=== PATIENT | male | born 1950 | race Caucasian/White ===

== ENCOUNTER → 2018-01-14 14:13 | Outpatient (CLI) | payer MEDICARE, SELFPAY ==
--- NOTE | 2018-01-14 14:19 | RAD_ITS ---
STUDY: X-RAY - THORACIC SPINE REASON FOR EXAM: Male, 67 years old. Fall, pain TECHNIQUE: 3 view(s) of the thoracic spine were obtained. COMPARISON: None. FINDINGS: Normal kyphosis of the thoracic spine. There is no substantial scoliosis. There is multilevel endplate spondylosis of the thoracic vertebrae. Normal disc space heights. The soft tissue structures are unremarkable. RAD/Thoracic Spine 2 Views IMPRESSION: Mid and lower endplate spondylosis. No fracture. Electronically Signed: Abner Oakes DO at 23:49 EST , Service support ,
--- NOTE | 2018-01-14 14:19 | RAD_ITS ---
STUDY: X-RAY - CERVICAL SPINE REASON FOR EXAM: Male, 67 years old. Fall, pain TECHNIQUE: 7 view(s) of the cervical spine were obtained. COMPARISON: None FINDINGS: Normal anterior atlantoaxial articulation. Normal odontoid process. There is straightening of the normal cervical lordosis. There is multi-level endplate spondylosis. There is multi-level degenerative disc disease with multilevel disc space narrowing. There is multi-level osseous foraminal stenosis. The soft tissue structures are unremarkable. RAD/Cerv Spine 4 or 5 Views IMPRESSION: No fracture. Degenerative changes. Straightening of the normal cervical lordosis. Electronically Signed: Abner Oakes DO at 23:53 EST , Service support ,
--- NOTE | 2018-01-14 14:30 | RAD_ITS ---
STUDY: X-RAY - LUMBAR SPINE REASON FOR EXAM: Male, 67 years old. Fall, pain TECHNIQUE: 5 view(s) of the lumbar spine were obtained. COMPARISON: None FINDINGS: Normal lumbar lordosis. There is no substantial scoliosis. There is a normal alignment of the vertebrae. Normal vertebral bodies and endplates. Degenerative disc disease L4-5. No pars defect. The soft tissue structures are unremarkable. RAD/L/S Spine Min 4 Views IMPRESSION: No fracture. Normal lordosis. Degenerative disc disease L4-5. Electronically Signed: Abner Oakes DO at 23:52 EST , Service support ,
[2018-01-14 15:43] LABS: Hematocrit 36.7 % (40-54); Hemoglobin 11.8 g/dl (13.0-16.5); Mean Corp Hgb Conc 32.2 g/gl (32-36); Mean Corpuscular Hgb 29.4 pg (27.0-32.0); Mean Corpuscular Volume 91.5 fL (80-94); Mean Platelet Vol. 10.7 fl (6.2-12.0); Platelet Count 160 K/mm3 (150-450); RBC Distribution Width CV 13.6 % (11.6-14.6); RBC Distribution Width SD 45.2 fl (35.1-43.9); Red Blood Count 4.01 M/mm3 (4.6-6.2); White Blood Count 6.6 K/mm3 (4.4-11.0)
[2018-01-14 15:50] LABS: Scan Indicated on CBC? Y/N NO
[2018-01-14 16:13] LABS: Vitamin B12 550 pg/mL (211-911)
[2018-01-14 16:21] LABS: ALB/GLOB Ratio 1.1 RATIO (0.9-2.4); AST(SGOT) 49 U/L (15-37); Alanine Aminotransfer ALT/SGPT 77 U/L (16-61); Albumin, Serum 3.5 g/dL (3.2-5.0); Alkaline Phosphatase 79 U/L (45-117); Anion Gap 10 (5-15); BUN 18 mg/dL (7-18); BUN/Creat Ratio 18.1 RATIO (10-20); Calcium,Total 8.8 mg/dL (8.5-10.1); Chloride 97 mmol/L (98-107); Cholesterol 192 mg/dL (200); EST Glomerular Filtration Rate 79 mL/min (>60); Est Glom Filt Rate - Afr Amer 96 mL/min (>60); Globulin 3.2 g/dL (2.2-4.2); Glucose 362 mg/dL (74-106); High Density Lipoprotein 33 mg/dL; Potassium 4.6 mmol/L (3.5-5.1); Protein, Total 6.7 g/dL (6.4-8.2); Sodium Level 135 mmol/L (136-145); Thyroid Stim Hormone (TSH) 1.38 uIU/mL (0.358-3.74); Triglycerides 337 mg/dL; Very Low Density Lipoprotein 67 mg/dL (5-40)
== END ==
PROVIDERS: Family Provider Family Medicine; PCP Family Medicine; Visit Provider Family Medicine
DX: M54.9 Dorsalgia, unspecified (principal); F32.9 Major depressive disorder, single episode, unspecified; E11.8 Type 2 diabetes mellitus with unspecified complications; E53.8 Deficiency of other specified B group vitamins
CPT/HCPCS: 36415; 72050; 72070; 72110; 80053; 80061; 82607; 84443; 85027

== ENCOUNTER 2018-02-26 15:30 | Outpatient (RCR) | payer MEDICARE, SELFPAY ==
--- NOTE | 2018-02-19 11:11 | HP.PTEVAL_ITS ---
Patient's Visit Information PATIT DIAZ is a 67 year old M referred to Physical Therapy by Pravin LARRY with a diagnosis of GAIT INSTABILITY. Date of Evaluation: 02/19/18 Physical Therapist: Kizzy Cox - Visit Plan Frequency: 2-3x /Week Duration: 4-6 Weeks Plan: *PATIENT IS A HIGH FALL RISK - FALLING DAILY* GAIT/BALANCE TRAINING STARTING WITH WALKER/PARALLEL BARS. POSTURE CORRECTION/STRENGTHENING, INSTRUCTION IN APPROPRIATE BODY MECHANICS AND ACTIVITY MODIFICATIONS. DLS STARTING WITH A NEUTRAL SPINE PROGRESSING ROM TOLERATED. JACLYN LE ROM, STRETCHING AND STRENGTHENING. HEP INSTRUCTION WITH PIN PUSHER INSTRUCTIONS. - Subjective Subjective: Diagnosis: GAIT INSTABILITY. Work/Leisure: RETIRED AND DISABLED. Disability: YES. Present symptoms: PATIENT REPORTS HE IS FALLINIG 2-3 TIMES A DAY. NECK PAIN, BACK PAIN, DIZZINESS, LEG WEAKNESS, JACLYN LE NUMBNESS AND TINGLIN. Present since: CHRONIC FOR YEARS. STATES FALLS ARE CONTINUING TO GET WORSE. Pain Scale: WHOLE SPINE: WORST 9/10, LEAST 7/10. Currently: 9/10. Commenced as a result of: NO APPARENT REASON OTHER THAN ORIGINALLY FROM A BLAST IN [place]. Symptoms at onset: LOW BACK PAIN. Worse: EVERYTHING. Better: RECLINEER. Disturbed sleep: YES. Previous history/Previous treatment : INJECTIONS, PT, CHIRO. NO SURGERY. Coughing/sneezing/straining: POSITIVE. Gait: USES A WALKER AROUND THE HOUSE PER BUT PATIENT REPORTS HE USES HIS CANE AND DOESN'T LIKE THE WALKER. Difficulty initiating urinatin: NO. Imaging: X-RAY RESULTS 01/14/18: CERVICAL - Normal anterior atlantoaxial articulation. Normal odontoid process. There is straightening of the normal cervical lordosis. There is. multi-level endplate spondylosis. There is multi -level degenerative disc. disease with multilevel disc space narrowing. There is multi-level osseous. foraminal stenosis. The soft tissue structures are unremarkable. THORACIC - Mid and lower endplate spondylosis. No fracture. LUMBAR - Normal lumbar lordosis. There is no substantial scoliosis. There is a normal alignment of the vertebrae. Normal vertebral bodies and endplates. Degenerative disc disease L4-5. No. pars defect. . PMH: Significant for dizziness, high blood pressure, insulin-dependent diabetes mellitus,. arthritis, posttraumatic stress disorder and a right rotator cuff repair. He reports that. he falls a lot, secondary to spine pain and right lower extremity giving out. He is falling daily. Big fall about a month ago and seen by Dr. Espitia - no fx's per report. He denies having been in any accidents or any unexplained weight. loss. OTHER: PATIENTS IS WITH HIM THROUGHOUT THE EVALUATION AND SHE REPORTS SHE DOES NOT WORK OUTSIDE THE HOME. PATIENTS REPORTS DR. ESPITIA TOLD HIM HE NEEDS THE WALKER. - Objective Sitting Posture: POOR. PATIENT IS NOT ABLE TO GET COMFORTABLE IN SITTING AND MOVES AROUND A LOT. Standing Posture: POOR. INCREASED TRUNK FLEXION AND DEPENDENT ON CANE FOR BALANCE. Lordosis: REDUCED. Lateral shift: NO. Relevant shift: N/A. Active Correction of posture: WORSE BUT SOME RELEIF WITH PASSIVE LUMBAR SUPPORT IN SITTING. Other Observations: INDEP GAIT INTO PT WITH A QUAD CANE BUT PATIENT BARELY MADE IT BACK TO A TREATMENT ROOM (ABOUT 300 FEET). HE WAS INSISTING ON USING A CANE AND NOT A WALKER. HE WALKS WITH A VERY SLOW ANTALGIC GAIT PATTERN WITH DECREASED JACLYN STRIDE LENGTH. HE IS UNABLE TO SLS ON EITHER LEG WITHOUT UE ASSIST. HIS STANDING BALANCE IS FAIR AND HIS DYNAMIC BALANCE IS POOR. HIS IS WITH HIM. Motor/ROM deficit: JACLYN UE AND LE WEAKNESS. RIGHT UE ROM IS LIMITED TO ABOUT 90 DEG ELEVATION AND LEFT UE ELEVATION IS ABOUT 25% LIMITED. HIS RIGHT UE AND LE ARE MORE PAINFUL, LIMITED AND WEAK COMPARED TO HIS LEFT UE AND LE. LEFT UE AND LE STRENGTH WITH MMT'ING IS GROSSLY 4/5. RIGHT UE GROSSLY: SHOULDER 2+/5, ELBOW 4/5, WRIST/HAND 4/5. RIGHT LE: HIP 3+/5, KNEE 4-/5 AND ANKLE 3+/5. ROM AND MMT'ING IS DIFFICULT DUE TO PATIENTS REPORTS OF PAIN AND PATIENTS PAIN BEHAVIOR. Sensory deficit: DECREASED RIGHT LE LIGHT TOUCH SENSATION COMPARED TO LEFT. DECREASED LIGHT TOUCH JACLYN FEET RIGHT > LEFT. Dural Signs: POSITIVE JACLYN LE'S. Lumbar mvmt loss : flex - MOD. ext - SYD. R SG - SYD. L SG - SYD. CERVICAL MVMT LOSS: PATIENT HOLDS HIS HEAD IN SLIGHT FLEXION MOST OF THE SESSION BUT HE IS ABLE TO LEFT HIS HEAD UP. EXT AND RETRACTION HAVE MAJOR MVMT LOSS. JACLYN SB AND ROT HAVE MODERATE MVMT LOSS. PATIENT WITH C/O INCREASED PAIN WITH ALL MVMT TESTING. Core strength: POOR. OTHER: PATIENT IS ABLE TO FOLLOW ALL COMMANDS WELL. PATIENT WAS TAKEN BACK UP FRONT TO SCHEDULE IN A WHEEL CHAIR DUE TO THE LONG DISTANCE AND THE TIME NEEDED TO SCHEDULE WHICH WOULD INVOLVE STANDING. PATIENT IS UNSAFE WITH CANE. PATIENT DOES NOT LIKE OR WANT TO USE HIS FWW AT HOME. DISCUSSED POSSIBLE BENEFITS OF ROLLATOR AND PATIENT WILL CONSIDER. - Goals Goal 1:: INDEP AND SAFE GAIT ON ALL SURFACES WITH LEAST ASSISTIVE DEVICE. Goal Time Frame: 4-6 Weeks Goal 2:: IMPROVE BENDING, SITTING, STANDING, WALKING, REACHING, LIFTING, ADL AND SLEEP FUNCTION Goal Time Frame: 4-6 Weeks Goal 3:: INDEP HEP Goal Time Frame: 4-6 Weeks - Rehabilitation Potential Rehabilitation Potential: Fair - Anticipated Interventions Patient/Client Instruction: Educate patient on: Condition, Plan of Care, Risk Factors, Benefits of Fitness Program For the Purpose of:: To improve self management Therapeutic Exercise to Include: Strength training, Endurance training, Balance training, Body mechanics, Postural training, Flexibilty training, Gait and locomotor training, Active ROM, Dynamic Lumbar Stabilization For the Purpose of:: To decrease pain, To increase ROM, To improve muscle performance and motor function, To improve ability to perform ADL's, To increase tolerance to activity/condition/position, To improve ability of physical actions for home/community/work/leisure, To improve gait and locomotor functions, To improve endurance, To improve balance, To improve safety with gait , To improve safety, To facilitate caregiver knowledge, To improve tolerance to ADL's Manual Therapy Techniques to Include: Soft tissue mobilization For the Purpose of:: To decrease pain, To increase ROM, To improve nutrient delivery to tissue Cryotherapy (ice pack, ice massage): Yes Thermo therapy (hot pack): Yes Ultrasound (thermal/non thermal): Yes For the Purpose of:: To decrease pain, To decrease swelling/inflammation, To increase ROM Thank you for the opportunity to evaluate your patient. For Medicare and Medicare HMO plans, please review the plan of care and approve it. It will need to be FAXED BACK to us at [phone] for Medicare purposes. Please let me know if there are questions or concerns regarding this plan of care. Physician Signature: Date:
--- NOTE | 2018-06-23 13:04 | HP.PTDCNRP_ITS ---
HP - Discharge Summary (1) - Patient Information PATTI DIAZ was seen in my office for initial evaluation on 02/19/18. The following Plan of Care was established for this patient: Initial Frequency: 2-3x /Week Initial Duration: 4-6 Weeks - Anticipated Interventions Patient/Client Instruction: Educate patient on: Condition, Plan of Care, Risk Factors, Benefits of Fitness Program For the Purpose of:: To improve self management Therapeutic Exercise to Include: Strength training, Endurance training, Balance training, Body mechanics, Postural training, Flexibilty training, Gait and locomotor training, Active ROM, Dynamic Lumbar Stabilization For the Purpose of:: To decrease pain, To increase ROM, To improve muscle performance and motor function, To improve ability to perform ADL's, To increase tolerance to activity/condition/position, To improve ability of physical actions for home/community/work/leisure, To improve gait and locomotor functions, To improve endurance, To improve balance, To improve safety with gait , To improve safety, To facilitate caregiver knowledge, To improve tolerance to ADL's Manual Therapy Techniques to Include: Soft tissue mobilization For the Purpose of:: To decrease pain, To increase ROM, To improve nutrient delivery to tissue Cryotherapy (ice pack, ice massage): Yes Thermo therapy (hot pack): Yes Ultrasound (thermal/non thermal): Yes For the Purpose of:: To decrease pain, To decrease swelling/inflammation, To increase ROM This patient was last seen in our office 02/26/18. Pertinent comments regarding their Physical therapy will appear below: This patient has not returned to Physical Therapy and is appropriate to return to MD for further follow-up as needed. At this point I will be discontinuing this patient from physical therapy. I would be happy to see this patient again in the future if found appropriate by the physician. Thank you! Kizzy Cox
== END 2018-02-26 19:00 | disposition home or self-care (01) ==
LOC: PT 15:30
PROVIDERS: Family Provider Family Medicine; PCP Family Medicine; Visit Provider Family Medicine
DX: R26.81 Unsteadiness on feet (principal)
CPT/HCPCS: 97110; 97162; 97530

== ENCOUNTER → 2018-03-12 14:55 | Outpatient (CLI) | payer MEDICARE, SELFPAY ==
[2018-03-12 18:08] LABS: Magnesium 1.7 mg/dL (1.6-2.6)
[2018-03-13 09:53] LABS: Vitamin D,25 Hydroxy 18.2 ng/mL (29.95-100.01)
== END ==
PROVIDERS: Family Provider Family Medicine; PCP Family Medicine; Visit Provider Family Medicine
DX: E55.9 Vitamin D deficiency, unspecified (principal)
CPT/HCPCS: 36415; 82306; 83735

== ENCOUNTER → 2019-01-23 11:07 | Outpatient (CLI) | payer MEDICARE, SELFPAY ==
[2018-07-02 11:02] VITALS: BMI 38.7
[2019-01-23 15:42] LABS: Hematocrit 36.1 % (40-54); Hemoglobin 11.5 g/dl (13.0-16.5); Mean Corp Hgb Conc 31.9 g/gl (32-36); Mean Corpuscular Hgb 29.7 pg (27.0-32.0); Mean Corpuscular Volume 93.3 fL (80-94); Mean Platelet Vol. 11.4 fl (6.2-12.0); Platelet Count 179 K/mm3 (150-450); RBC Distribution Width CV 14.6 % (11.6-14.6); RBC Distribution Width SD 49.8 fl (35.1-43.9); Red Blood Count 3.87 M/mm3 (4.6-6.2); White Blood Count 8.6 K/mm3 (4.4-11.0)
[2019-01-23 15:44] LABS: Scan Indicated on CBC? Y/N NO
[2019-01-23 16:12] LABS: ALB/GLOB Ratio 1.3 RATIO (0.9-2.4); AST(SGOT) 62 U/L (15-37); Alanine Aminotransfer ALT/SGPT 88 U/L (16-61); Albumin, Serum 3.6 g/dL (3.2-5.0); Alkaline Phosphatase 91 U/L (45-117); BUN 23 mg/dL (7-18); BUN/Creat Ratio 25.1 RATIO (10-20); Calcium,Total 8.6 mg/dL (8.5-10.1); Chloride 104 mmol/L (98-107); Cholesterol 186 mg/dL (200); Creatinine, Serum 0.92 mg/dL (0.70-1.30); EST Glomerular Filtration Rate 87 mL/min (>60); Est Glom Filt Rate - Afr Amer 105 mL/min (>60); Globulin 2.8 g/dL (2.2-4.2); Glucose 136 mg/dL (74-106); Potassium 4.7 mmol/L (3.5-5.1); Protein, Total 6.4 g/dL (6.4-8.2); Sodium Level 140 mmol/L (136-145); Triglycerides 220 mg/dL
[2019-01-23 16:13] LABS: Anion Gap 11 (5-15); High Density Lipoprotein 37 mg/dL; Thyroid Stim Hormone (TSH) 1.17 uIU/mL (0.358-3.74); Very Low Density Lipoprotein 44 mg/dL (5-40)
[2019-01-23 16:41] LABS: BNP,B-Type NATRIURETIC PEPTIDE 23.5 pg/mL (0-100)
== END ==
PROVIDERS: Family Provider Family Medicine; PCP Family Medicine; Referring Provider Family Medicine; Visit Provider Family Medicine
DX: R60.0 Localized edema (principal)
CPT/HCPCS: 36415; 80053; 80061; 83880; 84443; 85027

== ENCOUNTER → 2019-02-24 | Outpatient (CLI) | payer MEDICARE, SELFPAY ==
[2018-07-02 11:02] VITALS: BMI 38.7
--- NOTE | 2019-02-24 12:32 | RAD_ITS ---
STUDY: X-RAY CHEST REASON FOR EXAM: Male, 68 years old. Cough. TECHNIQUE: Frontal and lateral views of the chest. COMPARISON: 03/06/2017. FINDINGS: The lungs are clear and expanded. There is no demonstrated pleural abnormality. Normal size heart. Normal mediastinum and mark. Normal visualized pulmonary arteries. Normal visualized aortic arch and descending thoracic aorta. There are diffuse degenerative changes of the visualized thoracic spine. Normal visualized ribs, clavicles, and shoulders. There is no demonstrated abnormality of the visualized soft tissue structures of the upper abdomen. RAD/Chest PA and Lateral IMPRESSION: No acute chest disease. Electronically Signed: James Matthews MD at 13:59 EDT , Service support ,
== END | disposition home or self-care (01) ==
LOC: MTRAD 12:31
PROVIDERS: Family Provider Family Medicine; PCP Family Medicine; Referring Provider Family Medicine; Visit Provider Family Medicine
DX: R05 Cough (principal)
CPT/HCPCS: 71046

== ENCOUNTER → 2019-05-12 | Outpatient (CLI) | payer MEDICARE, SELFPAY ==
[2018-07-02 11:02] VITALS: BMI 38.7
== END | disposition home or self-care (01) ==
PROVIDERS: Family Provider Family Medicine; PCP Family Medicine; Referring Provider Nurse Practitioner Family; Visit Provider Nurse Practitioner Family
DX: L03.119 Cellulitis of unspecified part of limb (principal)
CPT/HCPCS: 87070; 87077; 87186; 87205

== ENCOUNTER 2019-05-16 09:15 | Outpatient (RCR) | payer MEDICARE, SELFPAY ==
[2019-05-13 09:05] VITALS: BP 129/76; PULSE 87; RESP 20; TEMP 36.2; BMI 38.4
--- NOTE | 2019-05-13 10:08 | HP.PCM_ITS ---
(1) Chronic venous insufficiency Status: Chronic Current Visit: Yes Code(s): I87.2 - Venous insufficiency (chronic) (peripheral) (2) Venous hypertension, chronic, with ulcer and inflammation Status: Chronic Current Visit: Yes Qualifiers: Laterality: right Qualified Code(s): I87.331 - Chronic venous hypertension (idiopathic) with ulcer and inflammation of right lower extremity; L97.919 - Non-pressure chronic ulcer of unspecified part of right lower leg with unspecified severity Code(s): I87.339 - Chronic venous hypertension (idiopathic) with ulcer and inflammation of unspecified lower extremity; L97.909 - Non-pressure chronic ulcer of unspecified part of unspecified lower leg with unspecified severity (3) Leg swelling Status: Chronic Current Visit: Yes Code(s): M79.89 - Other specified soft tissue disorders (4) Leg edema Status: Chronic Current Visit: Yes Code(s): R60.0 - Localized edema (5) Venous stasis dermatitis Status: Chronic Current Visit: Yes Qualifiers: Laterality: bilateral Qualified Code(s): I87.2 - Venous insufficiency (chronic) (peripheral) Code(s): I87.2 - Venous insufficiency (chronic) (peripheral) (6) Venous ulcer of right leg Status: Chronic Current Visit: Yes Code(s): I83.019 - Varicose veins of right lower extremity with ulcer of unspecified site; L97.919 - Non-pressure chronic ulcer of unspecified part of right lower leg with unspecified severity (7) Obesity (BMI 30-39.9) Status: Chronic Current Visit: Yes Code(s): E66.9 - Obesity, unspecified (8) Hypertension Status: Chronic Current Visit: No Code(s): I10 - Essential (primary) hypertension (9) Diabetes mellitus Status: Chronic Current Visit: No Code(s): E11.9 - Type 2 diabetes mellitus without complications (10) Hyperlipidemia Status: Chronic Current Visit: No Code(s): E78.5 - Hyperlipidemia, unspecified History of Present Illness Date of Service: 05/13/19 Chief Complaint: Chronic venous insufficiency and venous stasis ulceration of the right distal lower extremity History of Wound: This is a 68-year-old male who presents accompanied by his grandchildren. He states that he has had an ulceration on the right medial calf for approximately 6 months. This was predated by erythema and skin changes which are consistent with venous stasis dermatitis. The patient has been treated by means of Neosporin, applied topically. He was evaluated by his primary care physician yesterday, and started on doxycycline 100 mg p.o. twice daily for a total of 10 days. He denies a history of thrombophlebitis. He confirms that he suffers from swelling in both lower extremities. He is not very active, and does not ambulate a great deal. He sleeps most nights in a chair. Past Medical History Past Medical History: Chronic Problems (Last Updated 07/02/18 @ 11:27 by Winter Cardoso) Chronic venous insufficiency (Chronic) Venous hypertension, chronic, with ulcer and inflammation (Chronic) Leg swelling (Chronic) Leg edema (Chronic) Venous stasis dermatitis (Chronic) Venous ulcer of right leg (Chronic) Obesity (BMI 30-39.9) (Chronic) Hypertension (Chronic) Diabetes mellitus (Chronic) Hyperlipidemia (Chronic) Uncontrolled diabetes mellitus type 2 without complications (Chronic) On lilia inhibitor On daily asa On statin BP 133/76 A1c checked on PCP office, no results available. No records avialable. Past Medical History: Patient has a history of hypertension, diabetes mellitus, and hyperlipidemia. His history is negative for myocardial infarction, congestive heart failure, cerebrovascular accident, cancer, pulmonary disease, renal disease, and thyroid disease. Surgical History: no surgical history Allergies/Adverse Reactions: Allergies No Known Allergies Allergy (Unverified 07/02/18 10:37) Home Medications: Ambulatory Orders Medication Instructions Recorded amitriptyline 25 mg tablet 25 mg PO QDAY 07/02/18 ascorbic acid (vitamin C) 250 mg 250 mg PO TID tab 07/02/18 tablet atorvastatin 80 mg tablet 80 mg PO QDAY 07/02/18 bupropion HCl SR 150 mg tablet,12 150 mg PO QDAY tab 07/02/18 hr sustained-release buspirone 5 mg tablet 5 mg PO TID 07/02/18 ferrous sulfate 325 mg (65 mg 325 mg PO TID tab 07/02/18 iron) tablet folic acid 1 mg tablet 1 mg PO QDAY 07/02/18 insulin aspart (U-100) 100 unit/mL 65 unit SC TID ml 07/02/18 (3 mL) subcutaneous pen insulin glargine (U-100) 100 85 unit SC BID ml 07/02/18 unit/mL (3 mL) subcutaneous pen lisinopril 20 2 tab PO QDAY tab 07/02/18 mg-hydrochlorothiazide 12.5 mg tablet metformin 500 mg tablet 1,000 mg PO BID tab 07/02/18 prazosin 5 mg capsule 5 mg PO ONCE 07/02/18 pregabalin 100 mg capsule 100 mg PO BID 07/02/18 tolterodine ER 2 mg 2 mg PO QDAY 07/02/18 capsule,extended release 24 hr triamcinolone acetonide 0.1 % 1 applic TOPICAL BID 07/02/18 topical cream Atenolol 25 mg PO 05/13/19 Carboxymethylcellulos/Glycerin 10 ml OP 05/13/19 [Refresh Repair 0.5-0.9% Drop] Cyanocobalamin (Vitamin B-12) 1,000 mcg PO 05/13/19 [Vitamin B-12] Ferrous Sulfate 05/13/19 Insulin Lispro [Humalog KwikPen] 05/13/19 Melatonin 3 mg PO 05/13/19 Omeprazole 20 mg PO 05/13/19 Pregabalin [Lyrica] 150 mg PO 05/13/19 Venlafaxine HCl [Venlafaxine HCl 150 mg PO 05/13/19 ER] - Family History Paternal Family History: Family History (Last Updated 07/02/18 @ 10:53 by Winter Cardoso) Father Heart disease Mother Heart disease Sister Cancer FH: mental illness Brother Diabetes FH: mental illness - - Patient's father in his 50s with black lung disease. He was a minor. Patient's mother in her 50s, from a cerebrovascular accident. Social History: The patient lives with his . 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 He denies use of alcohol and tobacco products. Lives: Spouse/ Significant Other Smoking Status: Former smoker Tobacco Use: Non-smoker Alcohol: None Drugs: None Review of Systems Constitutional: Denies: Chills, Fever, Weight Change Eyes: Denies: Pain, Vision Change HEENT: Denies: Difficulty Hearing, Difficulty Swallowing, Sinus Congestion Cardiovascular: Denies: Chest Pain, Palpitations Respiratory: Denies: Cough, Shortness of Breath Gastrointestinal: Denies: Diarrhea, Nausea, Vomiting Genitourinary: Denies: Dysuria, Hematuria Endocrine: Denies: Heat/ Cold Intolerance, Polydipsia, Polyuria Hematologic/ Lymphatic: Denies: Easy Bruising, Easy Bleeding - Physical Exam Vital Signs Temp Pulse Resp BP 97.2 F L 87 20 H 129/76 H 05/13/19 09:05 05/13/19 09:05 05/13/19 09:05 05/13/19 09:05 General: Alert, Oriented x3, Cooperative, No apparent distress, Well developed, Well nourished, - - The patient is morbidly obese. HEENT: Atraumatic, PERRLA, EOMI, Normocephalic Oral: Moist Mucosa Neck: Supple, No JVD, Negative Carotid Bruits, Negative Hepatojugular Reflux, No Nodes, No Nuchal Rigidity, Trachea Midline Lungs: Clear to auscultation, Normal air movement, No rhonchi, No wheeze, No rales, Diminished Cardiovascular: Normal S1, No murmurs, - - Irregular rhythm Abdomen: Soft, Non Tender, Non-Distended, Obese Extremities: No clubbing, No cyanosis, No Calf Tenderness, - - Mild lower extremity bilateral swelling and edema is noted. There is mild erythema in the gaiter areas bilaterally. A large irregular ulceration is noted on the right medial calf. Dimensions are documented elsewhere. There is a moderate amount of bioburden and nonviable tissue present. There is also evidence of healthy, pink granulation tissue. Wound Measurements and Assessment WC - Nurse 1 - General Ulcer Measurement Start: 05/13/19 08:54 Freq: Status: Active Protocol: Activity Type Activity Date Activity User E-Sign Co-Sign Detail Recorded Client Recorded Date Recorded By Document 05/13/19 09:05 [id number] 05/13/19 09:27 DL 05/13/19 09:05 Wound Center Nurse 1 [Ulcer Assessment] #1 R Med LE Cluster -Current Size (cm) - Length 11 -Current Size (cm) - Width 9 -Current Size (cm) - Depth 0.1 -Total Square Cm 99 -Photo Taken Yes -Exudate Amt Medium -Exudate Type Serosanguineous -Wound Margin Distinct, Outline Attached -Granulation Amt Medium (34-66%) -Granulation Quality [place],Red -Necrosis Amt Medium (34-66%) -Necrotic Tissue Type Adherent Slough -Structure Exposed N/A -Texture ([place]-wound Skin Appearance) Localized Edema ,Scarring -Moisture ([place]-wound Skin Appearance Dry/Scaly ) -Color ([place]-wound Skin Appearance) Erythema, Hemosiderin Staining -Temperature ([place]-wound Skin No Abnormality Appearance) (Pt Warm) -Tenderness on Palpation ([place]-wound Yes Skin Appearance) -Ulcer Cleansing Wound Cleanser -Foul Odor after Cleansing No -Anesthetic Used 4% Lidocaine Solution [Edema Assessment] -Right Calf (cm) 47.1 -Right Ankle (cm) 25.2 -Left Calf (cm) 40.3 -Left Ankle (cm) 25.8 Musculoskeletal: No Muscle Wasting Neurological: Cranial nerves II-XII grossly intact, Neuro grossly intact Psych/Mental Status: Normal Affect, Appropriate, Alert and oriented to time, place, person, mood and affect Debridement Note Laterality: Right - Medial calf Type of Debridement: Excisional debridement Anesthesia Used: 5% Lidocaine Gel Depth: Down to and including healthy tissue, in the subcutaneous layer Percentage of wound debrided: 100 Instrument Used: 5mm curette Tissue Removed: Nonviable tissue and bioburden Severity: Fat Layer Exposed Amount of bleeding with debridement: Mild Bleeding Controlled with: Compression and gauze Patient tolerated procedure well Assessment/Plan Active Problems (Last Updated 07/02/18 @ 11:27 by Winter Cardoso) Chronic venous insufficiency (Chronic) Venous hypertension, chronic, with ulcer and inflammation (Chronic) Leg swelling (Chronic) Leg edema (Chronic) Venous stasis dermatitis (Chronic) Venous ulcer of right leg (Chronic) Obesity (BMI 30-39.9) (Chronic) Assessment: This is a 68-year-old male who presents with apparent chronic venous insufficiency, venous hypertension with inflammation and ulceration, lower extremity swelling and edema, and a venous stasis ulceration on the medial aspect of his right calf. It appears as though the patient's lifestyle has resulted in the patient's presenting symptoms. He is largely inactive. He sits for long periods each day, and sleeps in a chair. He is morbidly obese. It is noted that he has recently been placed on doxycycline 100 mg p.o. twice daily for total of 10 days. He has been treating the right medial calf ulceration with Neosporin topically. PHUONG's have been obtained in the wound healing center today, with the following results: Right 0.82, left 0.86. Plan: The patient and his family have been informed of the suspected reasons for his presenting symptoms. It appears as though his lifestyle habits have greatly contributed to his presenting symptoms. Patient has been advised to sleep in a recumbent position, with his legs level with his heart, or higher. This can be accomplished either by sleeping in bed, on the sofa, or in a recliner that allows for leg elevation adequately. Additionally, leg elevation has been advised even during daytime hours. Leg elevation is to be at least a heart level, if not higher. The patient has been advised to lose weight. Activity has been encouraged. The patient has been discouraged from prolonged idle sitting and standing. Weight loss has been strongly recommended. We are to implement the use of an [place] boot applied to the right lower extremity, which will be changed twice weekly. Patient will return in 1 week for reassessment. A venous duplex examination is to be obtained. Routine laboratory studies will also be obtained, including a CBC, conference of metabolic profile, serum prealbumin, and hemoglobin A1c. Patient has been advised to optimize his diabetes control and his nutritional intake. The patient is not a smoker. Influenza vaccine was not administered today. The patient weighs 260 pounds. He stands 5 feet 9 inches tall. His BMI is 38.4, which places him in a class II obesity category. Weight loss has been strongly recommended, and collaboration with his primary care physician in this regard has been advised.
[2019-05-15 11:26] LABS: Hematocrit 32.8 % (40-54); Hemoglobin 10.4 g/dl (13.0-16.5); Mean Corp Hgb Conc 31.7 g/gl (32-36); Mean Corpuscular Hgb 28.8 pg (27.0-32.0); Mean Corpuscular Volume 90.9 fL (80-94); Mean Platelet Vol. 11.1 fl (6.2-12.0); Platelet Count 154 K/mm3 (150-450); RBC Distribution Width CV 14.5 % (11.6-14.6); RBC Distribution Width SD 46.5 fl (35.1-43.9); Red Blood Count 3.61 M/mm3 (4.6-6.2); Scan Indicated on CBC? Y/N NO; White Blood Count 6.8 K/mm3 (4.4-11.0)
[2019-05-15 11:53] LABS: Hemoglobin A1c 8.8 % (4.2-6.3)
[2019-05-15 11:55] LABS: AST(SGOT) 45 U/L (15-37); Alanine Aminotransfer ALT/SGPT 67 U/L (16-61); Alkaline Phosphatase 88 U/L (45-117); Anion Gap 8 (5-15); BUN 39 mg/dL (7-18); BUN/Creat Ratio 29.8 RATIO (10-20); Calcium,Total 8.5 mg/dL (8.5-10.1); Chloride 106 mmol/L (98-107); Creatinine, Serum 1.31 mg/dL (0.70-1.30); EST Glomerular Filtration Rate 58 mL/min (>60); Est Glom Filt Rate - Afr Amer 70 mL/min (>60); Estimated Creatinine Clearance 53.22 ml/min; Glucose 366 mg/dL (74-106); Potassium 4.8 mmol/L (3.5-5.1); Prealbumin 19.5 mg/dL (20.0-40.0); Sodium Level 139 mmol/L (136-145)
[2019-05-16 09:28] VITALS: BP 132/72; PULSE 81; RESP 16; TEMP 36.3; BMI 38.4
== END 2019-05-18 23:59 ==
LOC: WC 09:15
PROVIDERS: Family Provider Family Medicine; PCP Family Medicine; Referring Provider Surgery; Visit Provider Surgery
DX: I83.012 Varicose veins of right lower extremity with ulcer of calf (principal); I10 Essential (primary) hypertension; R60.0 Localized edema; E11.622 Type 2 diabetes mellitus with other skin ulcer; E78.5 Hyperlipidemia, unspecified; M79.89 Other specified soft tissue disorders; L97.212 Non-pressure chronic ulcer of right calf with fat layer exposed; E11.65 Type 2 diabetes mellitus with hyperglycemia; Z68.38 Body mass index [BMI] 38.0-38.9, adult; Z71.3 Dietary counseling and surveillance; Z79.899 Other long term (current) drug therapy; Z87.891 Personal history of nicotine dependence; E66.01 Morbid (severe) obesity due to excess calories
CPT/HCPCS: 11042; 11045; 29580; 36415; 80053; 83036; 84134; 85027; 99213; G0463

== ENCOUNTER 2019-06-02 12:15 | Outpatient (RCR) | payer MEDICARE, SELFPAY ==
[2019-05-19 01:10] VITALS: BP 132/72; PULSE 81; RESP 16; TEMP 36.3
--- NOTE | 2019-05-20 09:59 | VDLE_ITS ---
Reason For Study: pain and swelling, RLE ulcer RIGHT LEFT CFV is compressible, spontaneous, phasic, CFV is compressible, spontaneous, phasic, competent and demonstrates normal competent, and demonstrates normal augmentation. augmentation. FV is compressible, spontaneous, phasic, FV is compressible, spontaneous, phasic, competent and demonstrates normal competent and demonstrates normal augmentation. augmentation. POP V is compressible, spontaneous, phasic, POP V is compressible, spontaneous, phasic, competent and demonstrates normal competent and demonstrates normal augmentation. augmentation. T/P Trunk is compressible. T/P Trunk is compressible. PTV is compressible. PTV is compressible. RT PerV is compressible. LT PerV is compressible. S-F Junction is competent. S-F Junction is competent. GSV is competent above the knee, but GSV is incompetent throughout for greater incompetent below the knee for greater than .5 seconds. GSV measures .21 x .26 cm. than .5 seconds. GSV measures .24 x .27 cm. SSV is competent. SSV is competent. Procedure Exam performed in department. The exam was diagnostic. Interpretation Summary Deep veins of the lower extremities are bilaterally patent and compressible segmentally. There is no evidence of deep vein thrombosis on either side. Valvular competence appears intact within the proximal deep venous systems bilaterally. The greater saphenous veins appear bilaterally patent and compressible segmentally. Sapheno-femoral junctions are bilaterally competent . The right greater saphenous vein appears competent above the knee. The right greater saphenous vein appears incompetent below the knee. The left greater saphenous vein appears segmentally incompetent. Small saphenous veins are patent and competent bilaterally. Ordering Physician: Grupo Lara Performed By: Anthony Severino RVT
--- NOTE | 2019-05-29 13:44 | HP.PCM_ITS ---
(1) Ulcer of right lower extremity with fat layer exposed Status: Chronic Current Visit: Yes Code(s): L97.912 - Non-pressure chronic ulcer of unspecified part of right lower leg with fat layer exposed (2) Diabetic neuropathy Status: Acute Current Visit: Yes Code(s): E11.40 - Type 2 diabetes mellitus with diabetic neuropathy, unspecified (3) Chronic venous insufficiency Status: Chronic Current Visit: Yes Code(s): I87.2 - Venous insufficiency (chronic) (peripheral) (4) Venous hypertension, chronic, with ulcer and inflammation Status: Chronic Current Visit: No Qualifiers: Code(s): I87.339 - Chronic venous hypertension (idiopathic) with ulcer and inflammation of unspecified lower extremity; L97.909 - Non-pressure chronic ulcer of unspecified part of unspecified lower leg with unspecified severity (5) Venous stasis dermatitis Status: Chronic Current Visit: Yes Qualifiers: Code(s): I87.2 - Venous insufficiency (chronic) (peripheral) History of Present Illness Date of Service: 05/29/19 Chief Complaint: Chronic venous insufficiency and venous stasis ulceration of the right distal lower extremity History of Wound: Mr. Olsen is seen today as a courtesy visit with Dr. Lara. Chronic history of bilateral lower extremity edema/venous insufficiency and right lower extremity ulcer. Recently had venous studies done with some evidence of venous insufficiency on exam. ABIs done during his initial visit with no overt concerns. His main concern today is bilateral lower extremity pain which on further examination is chronic. Reports a significant history of diabetic neuropathy and it appears he has been on several medications in the past with no significant improvement. Recent labs reviewed. A1c at 8.8 and patient admits to poor diabetes control. Past Medical History Past Medical History: Chronic Problems (Last Updated 07/02/18 @ 11:27 by Winter Cardoso) Chronic venous insufficiency (Chronic) Venous hypertension, chronic, with ulcer and inflammation (Chronic) Leg swelling (Chronic) Leg edema (Chronic) Venous stasis dermatitis (Chronic) Venous ulcer of right leg (Chronic) Obesity (BMI 30-39.9) (Chronic) Hypertension (Chronic) Diabetes mellitus (Chronic) Hyperlipidemia (Chronic) Ulcer of right lower extremity with fat layer exposed (Chronic) Uncontrolled diabetes mellitus type 2 without complications (Chronic) On lilia inhibitor On daily asa On statin BP 133/76 A1c checked on PCP office, no results available. No records avialable. Surgical History: no surgical history Allergies/Adverse Reactions: Allergies No Known Allergies Allergy (Unverified 07/02/18 10:37) Home Medications: Ambulatory Orders Medication Instructions Recorded amitriptyline 25 mg tablet 25 mg PO QDAY 07/02/18 ascorbic acid (vitamin C) 250 mg 250 mg PO TID tab 07/02/18 tablet atorvastatin 80 mg tablet 80 mg PO QDAY 07/02/18 bupropion HCl SR 150 mg tablet,12 150 mg PO QDAY tab 07/02/18 hr sustained-release buspirone 5 mg tablet 5 mg PO TID 07/02/18 ferrous sulfate 325 mg (65 mg 325 mg PO TID tab 07/02/18 iron) tablet folic acid 1 mg tablet 1 mg PO QDAY 07/02/18 insulin aspart (U-100) 100 unit/mL 65 unit SC TID ml 07/02/18 (3 mL) subcutaneous pen insulin glargine (U-100) 100 85 unit SC BID ml 07/02/18 unit/mL (3 mL) subcutaneous pen lisinopril 20 2 tab PO QDAY tab 07/02/18 mg-hydrochlorothiazide 12.5 mg tablet metformin 500 mg tablet 1,000 mg PO BID tab 07/02/18 prazosin 5 mg capsule 5 mg PO ONCE 07/02/18 pregabalin 100 mg capsule 100 mg PO BID 07/02/18 tolterodine ER 2 mg 2 mg PO QDAY 07/02/18 capsule,extended release 24 hr triamcinolone acetonide 0.1 % 1 applic TOPICAL BID 07/02/18 topical cream Atenolol 25 mg PO 05/13/19 Carboxymethylcellulos/Glycerin 10 ml OP 05/13/19 [Refresh Repair 0.5-0.9% Drop] Cyanocobalamin (Vitamin B-12) 1,000 mcg PO 05/13/19 [Vitamin B-12] Ferrous Sulfate 05/13/19 Insulin Lispro [Humalog KwikPen] 05/13/19 Melatonin 3 mg PO 05/13/19 Omeprazole 20 mg PO 05/13/19 Pregabalin [Lyrica] 150 mg PO 05/13/19 Venlafaxine HCl [Venlafaxine HCl 150 mg PO 05/13/19 ER] - Family History Paternal Family History: Family History (Last Updated 07/02/18 @ 10:53 by Winter Cardoso) Father Heart disease Mother Heart disease Sister Cancer FH: mental illness Brother Diabetes FH: mental illness - - Patient's father in his 50s with black lung disease. He was a minor. Patient's mother in her 50s, from a cerebrovascular accident. Smoking Status: Former smoker Tobacco Use: Non-smoker Review of Systems Constitutional: Denies: Anorexia, Chills, Fever Eyes: Denies: Pain HEENT: Denies: Difficulty Swallowing Cardiovascular: Denies: Chest Pain Respiratory: Denies: Hemoptysis Gastrointestinal: Denies: Abdominal Pain, Hematemesis, Vomiting Genitourinary: Denies: Hematuria Skin: Denies: Jaundice - Physical Exam Vital Signs Temp Pulse Resp BP 97.3 F L 81 16 132/72 H 05/19/19 01:10 05/19/19 01:10 05/19/19 01:10 05/19/19 01:10 General: Alert, Cooperative, No apparent distress HEENT: Atraumatic, Normocephalic Oral: Moist Mucosa Neck: Supple Lungs: Normal air movement Cardiovascular: Regular rate, Regular Rhythm, Normal S1, Normal S2 Abdomen: Non Tender, Obese Extremities: No cyanosis, Edema Skin: Ulcer/ Wound Wound Measurements and Assessment WC - Nurse 2 - General Ulcer CM Notes Start: 05/29/19 10:26 Freq: Status: Active Protocol: Activity Type Activity Date Activity User E-Sign Co-Sign Detail Recorded Client Recorded Date Recorded By Document 05/29/19 10:59 MW [id number] 05/29/19 11:10 MW 05/29/19 10:59 Wound Center Nurse 2 [Procedure/Treatment] #1 R Med LE Cluster -Time 11:04 -Correct Patient Yes -Correct Side, Site, Position Yes -Correct Procedure Yes -Procedure Performed Yes -Type of Procedure Debridement -Clinical Debridement Subcutaneous -Post Debridement Size (cm) - Length 2.0 -Post Debridement Size (cm) - Width 0.5 -Post Debridement Size (cm) - Depth 0.1 -Total Square Cm 1.00 -Wound/Ulcer Outcome Not Healed -Ulcer Cleansing Rinsed/ Irrigated with Saline -Foul Odor after Cleansing No -Bioengineered Tissue No -Bleeding Controlled with Pressure -Offloading No -Treatment Response Procedure Tolerated Well [See Physician Procedure note for Specifics] Pain Scale: 0-10 Numeric [Pain] -Is Patient Pain Free? Yes Musculoskeletal: No Muscle Wasting Neurological: Cranial nerves II-XII grossly intact Psych/Mental Status: Normal Affect Debridement Note Post-Debridement Measurements/Treatment WC - Nurse 2 - General Ulcer CM Notes Start: 05/29/19 10:26 Freq: Status: Active Protocol: Activity Type Activity Date Activity User E-Sign Co-Sign Detail Recorded Client Recorded Date Recorded By Document 05/29/19 10:59 MW [id number] 05/29/19 11:10 MW 05/29/19 10:59 Wound Center Nurse 2 #1 R Med LE Cluster -Time 11:04 -Correct Patient Yes -Correct Side, Site, Position Yes -Correct Procedure Yes -Procedure Performed Yes -Type of Procedure Debridement -Clinical Debridement Subcutaneous -Post Debridement Size (cm) - Length 2.0 -Post Debridement Size (cm) - Width 0.5 -Post Debridement Size (cm) - Depth 0.1 -Total Square Cm 1.00 -Wound/Ulcer Outcome Not Healed -Ulcer Cleansing Rinsed/ Irrigated with Saline -Foul Odor after Cleansing No -Bioengineered Tissue No -Bleeding Controlled with Pressure -Offloading No -Treatment Response Procedure Tolerated Well Pain Scale: 0-10 Numeric Is Patient Pain Free? Yes Wound debrided: Right lower extremity (medial) Wound Grade/Stage: Stage 2 Type of Debridement: Excisional debridement Depth: Down to and including healthy tissue, in the subcutaneous layer Percentage of wound debrided: 100 Instrument Used: 3mm curette Tissue Removed: Slough and devitalized tissue Severity: Fat Layer Exposed Amount of bleeding with debridement: Mild Bleeding Controlled with: Pressure Patient tolerated procedure well Assessment/Plan Active Problems (Last Updated 07/02/18 @ 11:27 by Winter Cardoso) Chronic venous insufficiency (Chronic) Venous stasis dermatitis (Chronic) Ulcer of right lower extremity with fat layer exposed (Chronic) Diabetic neuropathy (Acute) Assessment: Same as above. Plan: Debridement done as documented above. Procedure was well-tolerated. Coreen valles discussion had with patient about ongoing pain, diabetic neuropathy. Poorly controlled diabetes mellitus. He has been on several medications for his neuropathic pain without any significant improvement. Optimal diabetes control very strongly recommended. For now, Promogran with Adaptic over top. 3M wraps for edema management. Change in 1 day. Strongly advised to elevate his lower extremities when sitting in bed. His questions were answered and he was advised to call with any further questions or concerns. Follow-up in 1 week. This note was generated with [employer] software. It may contain incorrect words, spelling, and punctuation that were not noted in checking the note before signing.
[2019-06-02 13:28] VITALS: BP 152/78; PULSE 78; RESP 18; TEMP 35.5; BMI 38.4
== END 2019-06-18 23:59 ==
LOC: WC 12:15
PROVIDERS: Family Provider Family Medicine; PCP Family Medicine; Referring Provider Surgery; Visit Provider Surgery
DX: E11.621 Type 2 diabetes mellitus with foot ulcer (principal); E11.42 Type 2 diabetes mellitus with diabetic polyneuropathy; E11.51 Type 2 diabetes mellitus with diabetic peripheral angiopathy without gangrene; M79.89 Other specified soft tissue disorders; R52 Pain, unspecified; I87.2 Venous insufficiency (chronic) (peripheral); R60.0 Localized edema; E11.65 Type 2 diabetes mellitus with hyperglycemia; E78.5 Hyperlipidemia, unspecified; I10 Essential (primary) hypertension; Z79.899 Other long term (current) drug therapy; Z79.4 Long term (current) use of insulin; Z87.891 Personal history of nicotine dependence
CPT/HCPCS: 11042; 29580; 29581; 93970

== ENCOUNTER 2019-07-08 10:30 | Outpatient (RCR) | payer MEDICARE, SELFPAY ==
[2019-06-19 01:03] VITALS: BP 152/78; PULSE 78; RESP 18; TEMP 35.5
[2019-06-24 12:01] VITALS: BP 123/65; PULSE 79; RESP 18; TEMP 36.3; BMI 38.4
--- NOTE | 2019-06-24 12:40 | HP.PCM_ITS ---
(1) Chronic venous insufficiency Status: Chronic Current Visit: Yes Code(s): I87.2 - Venous insufficiency (chronic) (peripheral) (2) Venous hypertension, chronic, with ulcer and inflammation Status: Chronic Current Visit: Yes Qualifiers: Laterality: right Code(s): I87.339 - Chronic venous hypertension (idiopathic) with ulcer and inflammation of unspecified lower extremity; L97.909 - Non-pressure chronic ulcer of unspecified part of unspecified lower leg with unspecified severity (3) Leg swelling Status: Chronic Current Visit: Yes Code(s): M79.89 - Other specified soft tissue disorders (4) Leg edema Status: Chronic Current Visit: Yes Code(s): R60.0 - Localized edema (5) Venous stasis dermatitis Status: Chronic Current Visit: Yes Qualifiers: Laterality: bilateral Code(s): I87.2 - Venous insufficiency (chronic) (peripheral) (6) Venous ulcer of right leg Status: Chronic Current Visit: Yes Code(s): I83.019 - Varicose veins of right lower extremity with ulcer of unspecified site; L97.919 - Non-pressure chronic ulcer of unspecified part of right lower leg with unspecified severity (7) Obesity (BMI 30-39.9) Status: Chronic Current Visit: Yes Code(s): E66.9 - Obesity, unspecified (8) Hypertension Status: Chronic Current Visit: No Code(s): I10 - Essential (primary) hypertension (9) Diabetes mellitus Status: Chronic Current Visit: No Code(s): E11.9 - Type 2 diabetes mellitus without complications (10) Hyperlipidemia Status: Chronic Current Visit: No Code(s): E78.5 - Hyperlipidemia, unspecified (11) Diabetic neuropathy Status: Acute Current Visit: No Code(s): E11.40 - Type 2 diabetes mellitus with diabetic neuropathy, unspecified (12) Uncontrolled diabetes mellitus type 2 without complications Status: Chronic Current Visit: No Code(s): E11.65 - Type 2 diabetes mellitus with hyperglycemia Comment: On lilia inhibitor On daily asa On statin BP 133/76 A1c checked on PCP office, no results available. No records avialable. History of Present Illness Date of Service: 06/24/19 Chief Complaint: Chronic venous insufficiency and venous stasis ulceration of the right distal lower extremity History of Wound: This is a 68-year-old male with chronic venous disease. He recently presented with an ulceration of the right medial calf and erythema and skin changes consistent with venous stasis dermatitis. The patient had been using Neosporin topically. Prior to his presentation here, his primary care physician had prescribed doxycycline 100 mg p.o. twice daily for 10 days. Patient has no history of thrombophlebitis. He suffers from chronic swelling and edema in both lower extremities. He is not very active, and does not ambulate a great deal. He sleeps most nights in a chair. Venous duplex examination was performed on May 20, 2019, revealing incompetence of the right great saphenous vein below the knee, and the left great saphenous vein throughout. ABIs done during his initial visit with no evidence of severe arterial occlusive disease. Recent labs reviewed. A1c at 8.8 and patient admits to poor diabetes control. Past Medical History Past Medical History: Chronic Problems (Last Updated 07/02/18 @ 11:27 by Winter Cardoso) Chronic venous insufficiency (Chronic) Venous hypertension, chronic, with ulcer and inflammation (Chronic) Leg swelling (Chronic) Leg edema (Chronic) Venous stasis dermatitis (Chronic) Venous ulcer of right leg (Chronic) Obesity (BMI 30-39.9) (Chronic) Hypertension (Chronic) Diabetes mellitus (Chronic) Hyperlipidemia (Chronic) Ulcer of right lower extremity with fat layer exposed (Chronic) Uncontrolled diabetes mellitus type 2 without complications (Chronic) On lilia inhibitor On daily asa On statin BP 133/76 A1c checked on PCP office, no results available. No records avialable. Surgical History: no surgical history Allergies/Adverse Reactions: Allergies No Known Allergies Allergy (Unverified 07/02/18 10:37) Home Medications: Ambulatory Orders Medication Instructions Recorded amitriptyline 25 mg tablet 25 mg PO QDAY 07/02/18 ascorbic acid (vitamin C) 250 mg 250 mg PO TID tab 07/02/18 tablet atorvastatin 80 mg tablet 80 mg PO QDAY 07/02/18 bupropion HCl SR 150 mg tablet,12 150 mg PO QDAY tab 07/02/18 hr sustained-release buspirone 5 mg tablet 5 mg PO TID 07/02/18 ferrous sulfate 325 mg (65 mg 325 mg PO TID tab 07/02/18 iron) tablet folic acid 1 mg tablet 1 mg PO QDAY 07/02/18 insulin aspart (U-100) 100 unit/mL 65 unit SC TID ml 07/02/18 (3 mL) subcutaneous pen insulin glargine (U-100) 100 85 unit SC BID ml 07/02/18 unit/mL (3 mL) subcutaneous pen lisinopril 20 2 tab PO QDAY tab 07/02/18 mg-hydrochlorothiazide 12.5 mg tablet metformin 500 mg tablet 1,000 mg PO BID tab 07/02/18 prazosin 5 mg capsule 5 mg PO ONCE 07/02/18 pregabalin 100 mg capsule 100 mg PO BID 07/02/18 tolterodine ER 2 mg 2 mg PO QDAY 07/02/18 capsule,extended release 24 hr triamcinolone acetonide 0.1 % 1 applic TOPICAL BID 07/02/18 topical cream Atenolol 25 mg PO 05/13/19 Carboxymethylcellulos/Glycerin 10 ml OP 05/13/19 [Refresh Repair 0.5-0.9% Drop] Cyanocobalamin (Vitamin B-12) 1,000 mcg PO 05/13/19 [Vitamin B-12] Ferrous Sulfate 05/13/19 Insulin Lispro [Humalog KwikPen] 05/13/19 Melatonin 3 mg PO 05/13/19 Omeprazole 20 mg PO 05/13/19 Pregabalin [Lyrica] 150 mg PO 05/13/19 Venlafaxine HCl [Venlafaxine HCl 150 mg PO 05/13/19 ER] - Family History Paternal Family History: Family History (Last Updated 07/02/18 @ 10:53 by Winter Cardoso) Father Heart disease Mother Heart disease Sister Cancer FH: mental illness Brother Diabetes FH: mental illness - - Patient's father in his 50s with black lung disease. He was a minor. Patient's mother in her 50s, from a cerebrovascular accident. Smoking Status: Former smoker Tobacco Use: Non-smoker Review of Systems Constitutional: Denies: Chills, Fever, Weight Change Eyes: Denies: Pain, Vision Change HEENT: Denies: Difficulty Hearing, Difficulty Swallowing, Sinus Congestion Cardiovascular: Denies: Chest Pain, Palpitations Respiratory: Denies: Cough, Shortness of Breath Gastrointestinal: Denies: Diarrhea, Nausea, Vomiting Genitourinary: Denies: Dysuria, Hematuria Endocrine: Denies: Heat/ Cold Intolerance, Polydipsia, Polyuria Hematologic/ Lymphatic: Denies: Easy Bruising, Easy Bleeding - Physical Exam Vital Signs Temp Pulse Resp BP 97.3 F L 79 18 123/65 H 06/24/19 12:06/24/19 12:06/24/19 12:06/24/19 12:01 General: Alert, Oriented x3, Cooperative, No apparent distress, Well developed, Well nourished, - - The patient is morbidly obese. HEENT: Atraumatic, PERRLA, EOMI, Normocephalic Oral: Moist Mucosa Neck: No JVD Lungs: Normal air movement Abdomen: Non-Distended, Obese Extremities: No clubbing, No cyanosis, No edema, No Calf Tenderness, - - Mild swelling and edema is noted in the lower extremities bilaterally. There are no debbie open ulcerations or wounds. However, there are multiple small superficial excoriations bilaterally. There is slight erythema, suggestive of an inflamma tory process rather than cellulitis. Circumference measurements are documented elsewhere. Wound Measurements and Assessment WC - Nurse 1 - General Ulcer Measurement Start: 06/24/19 12:01 Freq: Status: Active Protocol: Activity Type Activity Date Activity User E-Sign Co-Sign Detail Recorded Client Recorded Date Recorded By Document 06/24/19 12:01 MW [id number] 06/24/19 12:13 MW 06/24/19 12:01 Wound Center Nurse 1 [Ulcer Assessment] #1 R Med LE Cluster -Combined with other wound No -Current Size (cm) - Length 0.1 -Current Size (cm) - Width 0.1 -Current Size (cm) - Depth 0.1 -Total Square Cm 0.01 -Photo Taken No -Epithelialization None Present -Tunneling No -Undermining/Tunneling No -Circular Undermining No -Exudate Amt None Present -Wound Margin Flat & Intact -Granulation Amt Small (1-33%) -Granulation Quality N/A -Slough/Fibrin Yes -Necrosis Amt Small (1-33%) -Necrotic Tissue Type Adherent Slough -Structure Exposed N/A -Texture (Chelsea-wound Skin Appearance) Assessed, Localized Edema -Moisture (Chelsea-wound Skin Appearance Assessed ) -Color (Chelsea-wound Skin Appearance) Assessed,Rubor -Temperature (Chelsea-wound Skin No Abnormality Appearance) (Pt Warm) -Ulcer Cleansing soap and water -Foul Odor after Cleansing No [Edema Assessment] -Lower Limb Edema Present Yes -Right Calf (cm) 40.5 -Right Ankle (cm) 22.5 -Left Calf (cm) 39.5 -Left Ankle (cm) 23.5 WC - Nurse 2 - General Ulcer CM Notes Start: 06/24/19 12:01 Freq: Status: Active Protocol: Activity Type Activity Date Activity User E-Sign Co-Sign Detail Recorded Client Recorded Date Recorded By Document 06/24/19 12:38 DV [id number] 06/24/19 12:40 DV 06/24/19 12:38 Wound Center Nurse 2 [Procedure/Treatment] #1 R Med LE Cluster -Time 12:39 -Correct Patient Yes -Correct Side, Site, Position Yes -Correct Procedure No -Procedure Performed No -Wound/Ulcer Outcome Not Healed [See Physician Procedure note for Specifics] Pain Scale: 0-10 Numeric [Pain] -Is Patient Pain Free? Yes Musculoskeletal: No Muscle Wasting Neurological: Cranial nerves II-XII grossly intact, Neuro grossly intact Psych/Mental Status: Normal Affect, Appropriate, Alert and oriented to time, place, person, mood and affect Debridement Note Post-Debridement Measurements/Treatment WC - Nurse 2 - General Ulcer CM Notes Start: 06/24/19 12:01 Freq: Status: Active Protocol: Activity Type Activity Date Activity User E-Sign Co-Sign Detail Recorded Client Recorded Date Recorded By Document 06/24/19 12:38 DV [id number] 06/24/19 12:40 DV 06/24/19 12:38 Wound Center Nurse 2 #1 R Med LE Cluster -Time 12:39 -Correct Patient Yes -Correct Side, Site, Position Yes -Correct Procedure No -Procedure Performed No -Wound/Ulcer Outcome Not Healed Pain Scale: 0-10 Numeric Is Patient Pain Free? Yes No debridement was completed today - There are no open wounds or ulcerations Assessment/Plan Active Problems (Last Updated 07/02/18 @ 11:27 by Winter Cardoso) Chronic venous insufficiency (Chronic) Venous hypertension, chronic, with ulcer and inflammation (Chronic) Leg swelling (Chronic) Leg edema (Chronic) Venous stasis dermatitis (Chronic) Venous ulcer of right leg (Chronic) Obesity (BMI 30-39.9) (Chronic) Assessment: Same as above. Plan: We are to re-implement the use of Unna boots to both lower extremities. These will be applied bilaterally today, and will be changed twice weekly. The zinc oxide will address the dermatitic changes, and the compression provider within the wraps will also address issues related to the patient's lower extremity swelling and edema. In addition, the patient has been advised to elevate his lower extremities as much as possible. Lower extremities are to be elevated to heart level, or higher. This is to be accomplished as much as possible, during both day and nighttime hours. The patient has been encouraged to be active. Prolonged idle sitting has been discouraged. Weight loss has been recommended. Optimization of the patient's glycemic control has also been recommended. Follow-up in 1 week. The patient is not a smoker. Influenza vaccine was not administered today. The patient weighs 260 pounds. He stands 5 feet 9 inches tall. His BMI is 38.4, which places him in a class II obesity category. Weight loss has been recommended, in collaboration with his primary c are physician in this regard has been advised.
[2019-06-27 12:28] VITALS: BP 145/66; PULSE 80; RESP 18; TEMP 36.1; BMI 38.4
[2019-07-01 12:04] VITALS: BP 141/63; PULSE 78; RESP 16; TEMP 36; BMI 38.4
--- NOTE | 2019-07-01 12:32 | HP.PCM_ITS ---
(1) Chronic venous insufficiency Status: Chronic Current Visit: Yes Code(s): I87.2 - Venous insufficiency (chronic) (peripheral) (2) Venous hypertension, chronic, with ulcer and inflammation Status: Chronic Current Visit: Yes Qualifiers: Laterality: right Code(s): I87.339 - Chronic venous hypertension (idiopathic) with ulcer and inflammation of unspecified lower extremity; L97.909 - Non-pressure chronic ulcer of unspecified part of unspecified lower leg with unspecified severity (3) Leg swelling Status: Chronic Current Visit: Yes Code(s): M79.89 - Other specified soft tissue disorders (4) Leg edema Status: Chronic Current Visit: Yes Code(s): R60.0 - Localized edema (5) Venous stasis dermatitis Status: Chronic Current Visit: Yes Qualifiers: Laterality: bilateral Code(s): I87.2 - Venous insufficiency (chronic) (peripheral) (6) Venous ulcer of right leg Status: Chronic Current Visit: Yes Code(s): I83.019 - Varicose veins of right lower extremity with ulcer of unspecified site; L97.919 - Non-pressure chronic ulcer of unspecified part of right lower leg with unspecified severity (7) Obesity (BMI 30-39.9) Status: Chronic Current Visit: Yes Code(s): E66.9 - Obesity, unspecified (8) Hypertension Status: Chronic Current Visit: No Code(s): I10 - Essential (primary) hypertension (9) Diabetes mellitus Status: Chronic Current Visit: No Code(s): E11.9 - Type 2 diabetes mellitus without complications (10) Hyperlipidemia Status: Chronic Current Visit: No Code(s): E78.5 - Hyperlipidemia, unspecified (11) Diabetic neuropathy Status: Acute Current Visit: No Code(s): E11.40 - Type 2 diabetes mellitus with diabetic neuropathy, unspecified (12) Uncontrolled diabetes mellitus type 2 without complications Status: Chronic Current Visit: No Code(s): E11.65 - Type 2 diabetes mellitus with hyperglycemia Comment: On lilia inhibitor On daily asa On statin BP 133/76 A1c checked on PCP office, no results available. No records avialable. History of Present Illness Date of Service: 07/01/19 Chief Complaint: Chronic venous insufficiency and venous stasis ulceration of the right distal lower extremity History of Wound: This is a 68-year-old male with chronic venous disease. He recently presented with an ulceration of the right medial calf and erythema and skin changes consistent with venous stasis dermatitis. The patient had been using Neosporin topically. Prior to his presentation here, his primary care physician had prescribed doxycycline 100 mg p.o. twice daily for 10 days. Patient has no history of thrombophlebitis. He suffers from chronic swelling and edema in both lower extremities. He is not very active, and does not ambulate a great deal. He sleeps most nights in a chair. Venous duplex examination was performed on May 20, 2019, revealing incompetence of the right great saphenous vein below the knee, and the left great saphenous vein throughout. ABIs done during his initial visit with no evidence of severe arterial occlusive disease. Recent labs reviewed. A1c at 8.8 and patient admits to poor diabetes control. Past Medical History Past Medical History: Chronic Problems (Last Updated 07/02/18 @ 11:27 by Winter Cardoso) Chronic venous insufficiency (Chronic) Venous hypertension, chronic, with ulcer and inflammation (Chronic) Leg swelling (Chronic) Leg edema (Chronic) Venous stasis dermatitis (Chronic) Venous ulcer of right leg (Chronic) Obesity (BMI 30-39.9) (Chronic) Hypertension (Chronic) Diabetes mellitus (Chronic) Hyperlipidemia (Chronic) Ulcer of right lower extremity with fat layer exposed (Chronic) Uncontrolled diabetes mellitus type 2 without complications (Chronic) On lilia inhibitor On daily asa On statin BP 133/76 A1c checked on PCP office, no results available. No records avialable. Surgical History: no surgical history Allergies/Adverse Reactions: Allergies No Known Allergies Allergy (Unverified 07/02/18 10:37) Home Medications: Ambulatory Orders Medication Instructions Recorded amitriptyline 25 mg tablet 25 mg PO QDAY 07/02/18 ascorbic acid (vitamin C) 250 mg 250 mg PO TID tab 07/02/18 tablet atorvastatin 80 mg tablet 80 mg PO QDAY 07/02/18 bupropion HCl SR 150 mg tablet,12 150 mg PO QDAY tab 07/02/18 hr sustained-release buspirone 5 mg tablet 5 mg PO TID 07/02/18 ferrous sulfate 325 mg (65 mg 325 mg PO TID tab 07/02/18 iron) tablet folic acid 1 mg tablet 1 mg PO QDAY 07/02/18 insulin aspart (U-100) 100 unit/mL 65 unit SC TID ml 07/02/18 (3 mL) subcutaneous pen insulin glargine (U-100) 100 85 unit SC BID ml 07/02/18 unit/mL (3 mL) subcutaneous pen lisinopril 20 2 tab PO QDAY tab 07/02/18 mg-hydrochlorothiazide 12.5 mg tablet metformin 500 mg tablet 1,000 mg PO BID tab 07/02/18 prazosin 5 mg capsule 5 mg PO ONCE 07/02/18 pregabalin 100 mg capsule 100 mg PO BID 07/02/18 tolterodine ER 2 mg 2 mg PO QDAY 07/02/18 capsule,extended release 24 hr triamcinolone acetonide 0.1 % 1 applic TOPICAL BID 07/02/18 topical cream Atenolol 25 mg PO 05/13/19 Carboxymethylcellulos/Glycerin 10 ml OP 05/13/19 [Refresh Repair 0.5-0.9% Drop] Cyanocobalamin (Vitamin B-12) 1,000 mcg PO 05/13/19 [Vitamin B-12] Ferrous Sulfate 05/13/19 Insulin Lispro [Humalog KwikPen] 05/13/19 Melatonin 3 mg PO 05/13/19 Omeprazole 20 mg PO 05/13/19 Pregabalin [Lyrica] 150 mg PO 05/13/19 Venlafaxine HCl [Venlafaxine HCl 150 mg PO 05/13/19 ER] - Family History Paternal Family History: Family History (Last Updated 07/02/18 @ 10:53 by Winter Cardoso) Father Heart disease Mother Heart disease Sister Cancer FH: mental illness Brother Diabetes FH: mental illness - - Patient's father in his 50s with black lung disease. He was a minor. Patient's mother in her 50s, from a cerebrovascular accident. Smoking Status: Former smoker Tobacco Use: Non-smoker Review of Systems Constitutional: Denies: Chills, Fever, Weight Change Eyes: Denies: Pain, Vision Change HEENT: Denies: Difficulty Hearing, Difficulty Swallowing, Sinus Congestion Cardiovascular: Denies: Chest Pain, Palpitations Respiratory: Denies: Cough, Shortness of Breath Gastrointestinal: Denies: Diarrhea, Nausea, Vomiting Genitourinary: Denies: Dysuria, Hematuria Endocrine: Denies: Heat/ Cold Intolerance, Polydipsia, Polyuria Hematologic/ Lymphatic: Denies: Easy Bruising, Easy Bleeding - Physical Exam Vital Signs Temp Pulse Resp BP 96.8 F L 78 16 141/63 H 07/01/19 12:04 07/01/19 12:04 07/01/19 12:04 07/01/19 12:04 General: Alert, Oriented x3, Cooperative, No apparent distress, Well developed, Well nourished HEENT: Atraumatic, PERRLA, EOMI, Normocephalic Oral: Moist Mucosa Neck: No JVD Lungs: Normal air movement Abdomen: Non-Distended Extremities: No clubbing, No cyanosis, No Calf Tenderness, - - The swelling and edema in the patient's lower extremities appear to be reasonably well controlled . There are no big ulcerations or wounds. A few very small excoriations persist. They appear to be very clinically insignificant. The patient has made significant improvement in regards to the swelling and edema bilaterally. Circumference dimensions are documented elsewhere. Skin: No rashes Wound Measurements and Assessment WC - Nurse 1 - General Ulcer Measurement Start: 06/24/19 12:01 Freq: Status: Active Protocol: Activity Type Activity Date Activity User E-Sign Co-Sign Detail Recorded Client Recorded Date Recorded By Document 07/01/19 12:04 [id number] 07/01/19 12:16 BS 07/01/19 12:04 Wound Center Nurse 1 [Ulcer Assessment] #1 R Med LE Cluster -Combined with other wound No -Current Size (cm) - Length 0.1 -Current Size (cm) - Width 0.1 -Current Size (cm) - Depth 0.1 -Total Square Cm 0.01 -Photo Taken No -Tunneling No -Moisture (Chelsea-wound Skin Appearance Assessed,Dry/ ) Scaly -Temperature (Chelsea-wound Skin No Abnormality Appearance) (Pt Warm) -Tenderness on Palpation (Chelsea-wound No Skin Appearance) -Ulcer Cleansing Soap and water -Foul Odor after Cleansing No [Edema Assessment] -Lower Limb Edema Present Yes -Point of measurement (cm from the 37.5 medial instep) -Point of Measurement (cm from the 22.5 medial instep) -Point of measurement (cm from the 38.0 medial instep) -Point of Measurement (cm from the 22.6 medial instep) Musculoskeletal: No Muscle Wasting Neurological: Cranial nerves II-XII grossly intact, Neuro grossly intact Psych/Mental Status: Normal Affect, Appropriate, Alert and oriented to time, place, person, mood and affect Debridement Note Post-Debridement Measurements/Treatment WC - Nurse 2 - General Ulcer CM Notes Start: 06/24/19 12:01 Freq: Status: Active Protocol: Activity Type Activity Date Activity User E-Sign Co-Sign Detail Recorded Client Recorded Date Recorded By Document 06/24/19 12:38 DV [id number] 06/24/19 12:40 DV 06/24/19 12:38 Wound Center Nurse 2 #1 R Med LE Cluster -Time 12:39 -Correct Patient Yes -Correct Side, Site, Position Yes -Correct Procedure No -Procedure Performed No -Wound/Ulcer Outcome Not Healed Pain Scale: 0-10 Numeric Is Patient Pain Free? Yes No debridement was completed today - There are no open wounds or ulcerations of significance Assessment/Plan Active Problems (Last Updated 07/02/18 @ 11:27 by Winter Cardoso) Chronic venous insufficiency (Chronic) Venous hypertension, chronic, with ulcer and inflammation (Chronic) Leg swelling (Chronic) Leg edema (Chronic) Venous stasis dermatitis (Chronic) Venous ulcer of right leg (Chronic) Obesity (BMI 30-39.9) (Chronic) Assessment: Same as above. Plan: We are to continue the use of Unna boots to both lower extremities. These will be applied bilaterally today, and will be changed twice weekly. The zinc oxide will address the dermatitic changes, and the compression within the wraps will also address issues related to the patient's lower extremity swelling and edema. In addition, the patient has been advised to elevate his lower extremities as much as possible. Lower extremities are to be elevated to heart level, or higher. This is to be accomplished as much as possible, during both day and nighttime hours. The patient has been encouraged to be active. Prolonged idle sitting has been discouraged. Weight loss has been recommended. Optimization of the patient's glycemic control has also been recommended. It is likely that we will be discharging the patient soon. However, we wish to assure that he has adequate compression for the long-term. According to the patient and his , he owns graduated compression stockings. They are unsure as to the degree of compression. They are to bring the stockings with them to the patient's next visit, so that we can verify the adequacy of the compression. Follow-up in 1 week. The patient is not a smoker. Influenza vaccine was not administered today. The patient weighs 260 pounds. He stands 5 feet 9 inches tall. His BMI is 38.4, which places him in a class II obesity category. Weight loss has been recommended, in collaboration with his primary care physician in this regard has been advised.
[2019-07-04 11:51] VITALS: BP 143/71; PULSE 84; TEMP 35.3; BMI 38.4
[2019-07-08 10:41] VITALS: BP 147/64; PULSE 72; RESP 16; TEMP 36.1; BMI 38.4
--- NOTE | 2019-07-08 11:12 | PCM.WC.HP ---
(1) Chronic venous insufficiency Status: Chronic Current Visit: Yes Code(s): I87.2 - Venous insufficiency (chronic) (peripheral) (2) Venous hypertension, chronic, with ulcer and inflammation Status: Chronic Current Visit: Yes Qualifiers: Laterality: right Code(s): I87.339 - Chronic venous hypertension (idiopathic) with ulcer and inflammation of unspecified lower extremity; L97.909 - Non-pressure chronic ulcer of unspecified part of unspecified lower leg with unspecified severity (3) Leg swelling Status: Chronic Current Visit: Yes Code(s): M79.89 - Other specified soft tissue disorders (4) Leg edema Status: Chronic Current Visit: Yes Code(s): R60.0 - Localized edema (5) Venous stasis dermatitis Status: Chronic Current Visit: Yes Qualifiers: Laterality: bilateral Code(s): I87.2 - Venous insufficiency (chronic) (peripheral) (6) Venous ulcer of right leg Status: Chronic Current Visit: Yes Code(s): I83.019 - Varicose veins of right lower extremity with ulcer of unspecified site; L97.919 - Non-pressure chronic ulcer of unspecified part of right lower leg with unspecified severity (7) Obesity (BMI 30-39.9) Status: Chronic Current Visit: Yes Code(s): E66.9 - Obesity, unspecified (8) Hypertension Status: Chronic Current Visit: No Code(s): I10 - Essential (primary) hypertension (9) Diabetes mellitus Status: Chronic Current Visit: No Code(s): E11.9 - Type 2 diabetes mellitus without complications (10) Hyperlipidemia Status: Chronic Current Visit: No Code(s): E78.5 - Hyperlipidemia, unspecified (11) Diabetic neuropathy Status: Acute Current Visit: No Code(s): E11.40 - Type 2 diabetes mellitus with diabetic neuropathy, unspecified (12) Uncontrolled diabetes mellitus type 2 without complications Status: Chronic Current Visit: No Code(s): E11.65 - Type 2 diabetes mellitus with hyperglycemia Comment: On lilia inhibitor On daily asa On statin BP 133/76 A1c checked on PCP office, no results available. No records avialable. History of Present Illness Date of Service: 07/08/19 Chief Complaint: Chronic venous insufficiency and venous stasis ulceration of the right distal lower extremity History of Wound: This is a 68-year-old male with chronic venous disease. He recently presented with an ulceration of the right medial calf and erythema and skin changes consistent with venous stasis dermatitis. The patient had been using Neosporin topically. Prior to his presentation here, his primary care physician had prescribed doxycycline 100 mg p.o. twice daily for 10 days. Patient has no history of thrombophlebitis. He suffers from chronic swelling and edema in both lower extremities. He is not very active, and does not ambulate a great deal. He sleeps most nights in a chair. Venous duplex examination was performed on May 20, 2019, revealing incompetence of the right great saphenous vein below the knee, and the left great saphenous vein throughout. ABIs done during his initial visit with no evidence of severe arterial occlusive disease. Recent labs reviewed. A1c at 8.8 and patient admits to poor diabetes control. Past Medical History Past Medical History: Chronic Problems (Last Updated 07/02/18 @ 11:27 by Winter Cardoso) Chronic venous insufficiency (Chronic) Venous hypertension, chronic, with ulcer and inflammation (Chronic) Leg swelling (Chronic) Leg edema (Chronic) Venous stasis dermatitis (Chronic) Venous ulcer of right leg (Chronic) Obesity (BMI 30-39.9) (Chronic) Hypertension (Chronic) Diabetes mellitus (Chronic) Hyperlipidemia (Chronic) Ulcer of right lower extremity with fat layer exposed (Chronic) Uncontrolled diabetes mellitus type 2 without complications (Chronic) On lilia inhibitor On daily asa On statin BP 133/76 A1c checked on PCP office, no results available. No records avialable. Surgical History: no surgical history Allergies/Adverse Reactions: Allergies No Known Allergies Allergy (Unverified 07/02/18 10:37) Home Medications: Ambulatory Orders Medication Instructions Recorded amitriptyline 25 mg tablet 25 mg PO QDAY 07/02/18 ascorbic acid (vitamin C) 250 mg 250 mg PO TID tab 07/02/18 tablet atorvastatin 80 mg tablet 80 mg PO QDAY 07/02/18 bupropion HCl SR 150 mg tablet,12 150 mg PO QDAY tab 07/02/18 hr sustained-release buspirone 5 mg tablet 5 mg PO TID 07/02/18 ferrous sulfate 325 mg (65 mg 325 mg PO TID tab 07/02/18 iron) tablet folic acid 1 mg tablet 1 mg PO QDAY 07/02/18 insulin aspart (U-100) 100 unit/mL 65 unit SC TID ml 07/02/18 (3 mL) subcutaneous pen insulin glargine (U-100) 100 85 unit SC BID ml 07/02/18 unit/mL (3 mL) subcutaneous pen lisinopril 20 2 tab PO QDAY tab 07/02/18 mg-hydrochlorothiazide 12.5 mg tablet metformin 500 mg tablet 1,000 mg PO BID tab 07/02/18 prazosin 5 mg capsule 5 mg PO ONCE 07/02/18 pregabalin 100 mg capsule 100 mg PO BID 07/02/18 tolterodine ER 2 mg 2 mg PO QDAY 07/02/18 capsule,extended release 24 hr triamcinolone acetonide 0.1 % 1 applic TOPICAL BID 07/02/18 topical cream Atenolol 25 mg PO 05/13/19 Carboxymethylcellulos/Glycerin 10 ml OP 05/13/19 [Refresh Repair 0.5-0.9% Drop] Cyanocobalamin (Vitamin B-12) 1,000 mcg PO 05/13/19 [Vitamin B-12] Ferrous Sulfate 05/13/19 Insulin Lispro [Humalog KwikPen] 05/13/19 Melatonin 3 mg PO 05/13/19 Omeprazole 20 mg PO 05/13/19 Pregabalin [Lyrica] 150 mg PO 05/13/19 Venlafaxine HCl [Venlafaxine HCl 150 mg PO 05/13/19 ER] - Family History Paternal Family History: Family History (Last Updated 07/02/18 @ 10:53 by Winter Cardoso) Father Heart disease Mother Heart disease Sister Cancer FH: mental illness Brother Diabetes FH: mental illness - - Patient's father in his 50s with black lung disease. He was a minor. Patient's mother in her 50s, from a cerebrovascular accident. Smoking Status: Former smoker Tobacco Use: Non-smoker Review of Systems Constitutional: Denies: Chills, Fever, Weight Change Eyes: Denies: Pain, Vision Change HEENT: Denies: Difficulty Hearing, Difficulty Swallowing, Sinus Congestion Cardiovascular: Denies: Chest Pain, Palpitations Respiratory: Denies: Cough, Shortness of Breath Gastrointestinal: Denies: Diarrhea, Nausea, Vomiting Genitourinary: Denies: Dysuria, Hematuria Endocrine: Denies: Heat/ Cold Intolerance, Polydipsia, Polyuria Hematologic/ Lymphatic: Denies: Easy Bruising, Easy Bleeding - Physical Exam Vital Signs Temp Pulse Resp BP 97.0 F L 72 16 147/64 H 07/08/19 10:41 07/08/19 10:41 07/08/19 10:41 07/08/19 10:41 General: Alert, Oriented x3, Cooperative, No apparent distress, Well developed, Well nourished HEENT: Atraumatic, PERRLA, EOMI, Normocephalic Oral: Moist Mucosa Neck: No JVD Lungs: Normal air movement Abdomen: Non-Distended Extremities: No clubbing, No cyanosis, No edema, No Calf Tenderness, - - There is no significant swelling or edema in the lower extremities bilaterally. There are no open wounds or ulcerations. The excoriations, previously noted, appear totally healed. There is no sign of infection or cellulitis. Mild, chronic skin changes persist, namely mild inflammatory changes. Circumference measurements are documented elsewhere. Skin: No breakdown Wound Measurements and Assessment WC - Nurse 1 - General Ulcer Measurement Start: 06/24/19 12:01 Freq: Status: Active Protocol: Activity Type Activity Date Activity User E-Sign Co-Sign Detail Recorded Client Recorded Date Recorded By Document 07/08/19 10:41 VT [id number] 07/08/19 10:50 VT 07/08/19 10:41 Wound Center Nurse 1 [Ulcer Assessment] #1 R Med LE Cluster -Current Size (cm) - Length 0.1 -Current Size (cm) - Width 0.1 -Current Size (cm) - Depth 0.1 -Total Square Cm 0.01 -Wound Margin Flat & Intact -Texture (Chelsea-wound Skin Appearance) Assessed, Localized Edema -Moisture (Chelsea-wound Skin Appearance Assessed,Dry/ ) Scaly -Color (Chelsea-wound Skin Appearance) Assessed -Temperature (Chelsea-wound Skin No Abnormality Appearance) (Pt Warm) -Tenderness on Palpation (Chelsea-wound No Skin Appearance) -Ulcer Cleansing Wound Cleanser -Foul Odor after Cleansing No [Edema Assessment] -Lower Limb Edema Present Yes -Right Calf (cm) 40 -Right Ankle (cm) 25 -Left Calf (cm) 40 -Left Ankle (cm) 26.5 Neurological: Cranial nerves II-XII grossly intact, Neuro grossly intact Psych/Mental Status: Normal Affect, Appropriate, Alert and oriented to time, place, person, mood and affect Debridement Note Post-Debridement Measurements/Treatment WC - Nurse 2 - General Ulcer CM Notes Start: 06/24/19 12:01 Freq: Status: Active Protocol: Activity Type Activity Date Activity User E-Sign Co-Sign Detail Recorded Client Recorded Date Recorded By Document 06/24/19 12:38 DV [id number] 06/24/19 12:40 DV 06/24/19 12:38 Wound Center Nurse 2 #1 R Med LE Cluster -Time 12:39 -Correct Patient Yes -Correct Side, Site, Position Yes -Correct Procedure No -Procedure Performed No -Wound/Ulcer Outcome Not Healed Pain Scale: 0-10 Numeric Is Patient Pain Free? Yes No debridement was completed today - There are no open wounds or ulcerations Assessment/Plan Active Problems (Last Updated 07/02/18 @ 11:27 by Winter Cardoso) Chronic venous insufficiency (Chronic) Venous hypertension, chronic, with ulcer and inflammation (Chronic) Leg swelling (Chronic) Leg edema (Chronic) Venous stasis dermatitis (Chronic) Venous ulcer of right leg (Chronic) Obesity (BMI 30-39.9) (Chronic) Assessment: Same as above. Plan: The patient is done well. All ulcerations and excoriations are completely healed. Patient is to be discharged. He brings with him today who has graduated compression stockings, which appear to be in good condition, and are of adequate compression. Therefore, the patient is to be discharged, and will follow-up henceforth on an as-needed basis. The patient has been advised to elevate his lower extremities as much as possible. Lower extremities are to be elevated to heart level, or higher. This is to be accomplished as much as possible, during both day and nighttime hours. The patient has been encouraged to be active. Prolonged idle sitting has been discouraged. Weight loss has been recommended. Optimization of the patient's glycemic control has also been recommended. The patient is to be discharged. The patient is not a smoker. Influenza vaccine was not administered today. The patient weighs 260 pounds. He stands 5 feet 9 inches tall. His BMI is 38.4, which places him in a class II obesity category. Weight loss has been recommended, in collaboration with his primary care physician in this regard has been advised.
== END 2019-07-19 23:59 ==
LOC: WC 10:30
PROVIDERS: Family Provider Family Medicine; PCP Family Medicine; Referring Provider Surgery; Visit Provider Surgery
DX: I83.212 Varicose veins of right lower extremity with both ulcer of calf and inflammation (principal); L97.212 Non-pressure chronic ulcer of right calf with fat layer exposed; E11.621 Type 2 diabetes mellitus with foot ulcer; E11.42 Type 2 diabetes mellitus with diabetic polyneuropathy; E11.51 Type 2 diabetes mellitus with diabetic peripheral angiopathy without gangrene; M79.89 Other specified soft tissue disorders; E78.5 Hyperlipidemia, unspecified; E66.9 Obesity, unspecified; E11.65 Type 2 diabetes mellitus with hyperglycemia; Z79.899 Other long term (current) drug therapy; Z79.4 Long term (current) use of insulin; Z87.891 Personal history of nicotine dependence
CPT/HCPCS: 29580; 99212; 99213; G0463

== ENCOUNTER → 2019-07-24 12:21 | Outpatient (CLI) | payer MEDICARE, SELFPAY ==
[2019-07-08 10:41] VITALS: BMI 38.4
[2019-07-24 14:39] LABS: Hemoglobin A1c 8.5 % (4.2-6.3)
[2019-07-24 15:04] LABS: Vitamin B12 525 pg/mL (211-911); Vitamin D,25 Hydroxy 17.8 ng/mL (29.95-100.01)
[2019-07-24 15:08] LABS: ALB/GLOB Ratio 1.1 RATIO (0.9-2.4); AST(SGOT) 58 U/L (15-37); Alanine Aminotransfer ALT/SGPT 92 U/L (16-61); Albumin, Serum 3.7 g/dL (3.2-5.0); Alkaline Phosphatase 92 U/L (45-117); Anion Gap 5 (5-15); BUN 16 mg/dL (7-18); BUN/Creat Ratio 17.5 RATIO (10-20); Chloride 108 mmol/L (98-107); Creatinine, Serum 0.92 mg/dL (0.70-1.30); EST Glomerular Filtration Rate 87 mL/min (>60); Est Glom Filt Rate - Afr Amer 105 mL/min (>60); Globulin 3.3 g/dL (2.2-4.2); PSA,Total - Annual Screen 1.57 ng/mL (0.00-4.00); Potassium 4.1 mmol/L (3.5-5.1); Sodium Level 142 mmol/L (136-145); Thyroid Stim Hormone (TSH) 2.21 uIU/mL (0.358-3.74)
[2019-07-24 15:33] LABS: Glucose 37 mg/dL (74-106)
== END ==
PROVIDERS: Family Provider Family Medicine; PCP Family Medicine; Referring Provider Family Medicine; Visit Provider Family Medicine
DX: E11.8 Type 2 diabetes mellitus with unspecified complications (principal); N40.0 Benign prostatic hyperplasia without lower urinary tract symptoms; E55.9 Vitamin D deficiency, unspecified; E53.8 Deficiency of other specified B group vitamins; Z12.5 Encounter for screening for malignant neoplasm of prostate
CPT/HCPCS: 36415; 80053; 82306; 82607; 83036; 84153; 84443; G0103

== ENCOUNTER → 2019-10-31 10:47 | Outpatient (CLI) | payer MEDICARE, SELFPAY ==
--- NOTE | 2019-10-31 10:55 | RAD_ITS ---
STUDY: X-RAY - RIGHT TIBIA AND FIBULA REASON FOR EXAM: Male, 69 years old. Cellulitis. TECHNIQUE: 2 view(s) of the tibia and fibula were obtained. COMPARISON: None. FINDINGS: Normal visualized tibia. Normal visualized fibula. There is no demonstrated acute fracture. There is non-specific soft tissue swelling. RAD/Tibia & Fibula 2 Views IMPRESSION: Soft tissue swelling otherwise normal x-ray examination of the tibia and fibula. Electronically Signed: Meaghan Diane MD at 3:09 EST , Service support ,
== END ==
PROVIDERS: Family Provider Family Medicine; PCP Family Medicine; Referring Provider Family Medicine; Visit Provider Family Medicine
DX: L03.119 Cellulitis of unspecified part of limb (principal)
CPT/HCPCS: 73590

== ENCOUNTER → 2019-11-10 16:45 | Outpatient (CLI) | payer MEDICARE, SELFPAY ==
[2019-11-10 17:41] LABS: Absolute Lymphocyte Count 1.54 X10^3/uL (0.83-4.51); Absolute Neutrophil Count 4.4 X10^3/uL (2.0-7.7); Basophil# 0.06 X10^3/uL; Basophil% 0.8 % (0-1); Eosinophil# 0.29 X10^3/uL; Eosinophils% 3.9 % (0-5); Hematocrit 34.7 % (40-54); Hemoglobin 11.3 g/dL (13.0-16.5); Lymphocyte # 1.54 X10^3/ul (4.0); Lymphocyte % 20.9 % (19-41); Mean Corp Hgb Conc 32.6 g/dL (32-36); Mean Corpuscular Hgb 30.1 pg (27.0-32.0); Mean Corpuscular Volume 92.3 fL (80-94); Mean Platelet Vol. 11.7 fl (6.2-12.0); Monocyte# 0.99 X10^3/uL; Monocyte% 13.4 % (0-10); NRBC Flagged by Analyzer 0 % (0-5); Neutrophil # 4.41 X10^3/uL (2.7-7.7); Neutrophil % 59.8 % (47-70); Platelet Count 137 K/mm3 (150-450); RBC Distribution Width CV 14.1 % (11.6-14.6); RBC Distribution Width SD 47.9 fl (35.1-43.9); Red Blood Count 3.76 M/mm3 (4.6-6.2); White Blood Count 7.4 K/mm3 (4.4-11.0)
[2019-11-10 17:58] LABS: Anion Gap 7 (5-15); BUN 27 mg/dL (7-18); BUN/Creat Ratio 23.5 RATIO (10-20); CRP < 2.90 mg/L (0.0-3.0); Calcium,Total 8.4 mg/dL (8.5-10.1); Chloride 104 mmol/L (98-107); Creatinine, Serum 1.15 mg/dL (0.70-1.30); EST Glomerular Filtration Rate 67 mL/min (>60); Est Glom Filt Rate - Afr Amer 81 mL/min (>60); Glucose 317 mg/dL (74-106); Potassium 4.6 mmol/L (3.5-5.1); Sodium Level 136 mmol/L (136-145)
[2019-11-10 18:06] LABS: Erythrocyte Sedimentation Rate 24 mm/hr (0-20)
== END ==
PROVIDERS: Family Provider Family Medicine; PCP Family Medicine; Referring Provider Family Medicine; Visit Provider Family Medicine
DX: L03.119 Cellulitis of unspecified part of limb (principal)
CPT/HCPCS: 36415; 80048; 85025; 85652; 86140

== ENCOUNTER → 2020-08-16 12:06 | Outpatient (CLI) | payer MEDICARE, SELFPAY ==
--- NOTE | 2020-08-16 12:10 | RAD_ITS ---
STUDY: X-RAY CHEST REASON FOR EXAM: Male, 70 years old. Dyspnea TECHNIQUE: PA and lateral views of the chest. COMPARISON: Comparison is made with prior study dated 02/24/2019. FINDINGS: The lungs are clear and expanded. Scattered calcified granulomas. There is no demonstrated pleural abnormality. There is moderate cardiac enlargement. Normal mediastinum and mark. Normal visualized pulmonary arteries. There is atherosclerotic calcification of the aortic arch with tortuosity. There are diffuse degenerative changes of the visualized thoracic spine. Normal visualized ribs, clavicles, and shoulders. There is no demonstrated abnormality of the visualized soft tissue structures of the upper abdomen. RAD/Chest PA and Lateral IMPRESSION: Cardiomegaly. No acute abnormality is seen. Electronically Signed: Jj Haddad, at 13:05 EDT , Service support ,
[2020-08-16 15:54] LABS: ALB/GLOB Ratio 1.1 RATIO (0.9-2.4); AST(SGOT) 38 U/L (15-37); Alanine Aminotransfer ALT/SGPT 63 U/L (16-61); Albumin, Serum 3.5 g/dL (3.2-5.0); Alkaline Phosphatase 83 U/L (45-117); Anion Gap 6 (5-15); BUN 15 mg/dL (7-18); Calcium,Total 9.2 mg/dL (8.5-10.1); Chloride 106 mmol/L (98-107); Creatinine, Serum 0.83 mg/dL (0.70-1.30); EST Glomerular Filtration Rate 97 mL/min (>60); Est Glom Filt Rate - Afr Amer 117 mL/min (>60); Globulin 3.3 g/dL (2.2-4.2); Glucose 47 mg/dL (74-106); Potassium 3.8 mmol/L (3.5-5.1); Protein, Total 6.8 g/dL (6.4-8.2); Sodium Level 140 mmol/L (136-145); Thyroid Stim Hormone (TSH) 1.53 uIU/mL (0.358-3.74)
[2020-08-16 15:56] LABS: Absolute Lymphocyte Count 1.92 X10^3/uL (0.83-4.51); Absolute Neutrophil Count 6.9 X10^3/uL (2.0-7.7); Basophil# 0.08 X10^3/uL; Basophil% 0.8 % (0-1); Eosinophil# 0.18 X10^3/uL; Eosinophils% 1.8 % (0-5); Hemoglobin 10.9 g/dL (13.0-16.5); Lymphocyte # 1.92 X10^3/ul (4.0); Lymphocyte % 18.7 % (19-41); Mean Corp Hgb Conc 31.1 g/dL (32-36); Mean Corpuscular Hgb 29.6 pg (27.0-32.0); Mean Corpuscular Volume 95.1 fL (80-94); Mean Platelet Vol. 11.7 fl (6.2-12.0); Monocyte# 1.11 X10^3/uL; Monocyte% 10.8 % (0-10); NRBC Flagged by Analyzer 0 % (0-5); Neutrophil # 6.86 X10^3/uL (2.7-7.7); Neutrophil % 66.7 % (47-70); Platelet Count 186 K/mm3 (150-450); RBC Distribution Width SD 52.7 fl (35.1-43.9); Red Blood Count 3.68 M/mm3 (4.6-6.2); White Blood Count 10.3 K/mm3 (4.4-11.0)
== END ==
PROVIDERS: PCP Family Medicine; Referring Provider Family Medicine; Visit Provider Family Medicine
DX: R06.00 Dyspnea, unspecified (principal)
CPT/HCPCS: 36415; 71046; 80053; 84443; 85025

== ENCOUNTER → 2020-09-01 14:03 | Outpatient (CLI) | payer MEDICARE, SELFPAY ==
--- NOTE | 2020-09-01 14:07 | ECHOD_ITS ---
Reason For Study: Cardiac Enlargement Procedure This was a 2D Doppler, Color Flow transthoracic echocardiogram. Technically difficult study due to patient body habitus. Patient scanned supine, contrast injection performed. Exam performed in department. Left Ventricle Normal LV size. The estimated ejection fraction is 70 %. No evidence for diastolic dysfunction. No regional wall motion abnormalities noted. Right Ventricle Normal RV size. Normal systolic function. Atria Normal left atrium. Normal right atrium. No doppler evidence for ASD. Mitral Valve There is no mitral valve stenosis. No mitral valve insufficiency. Tricuspid Valve There is no tricuspid stenosis. Trivial tricuspid valve insufficiency. Pulmonary artery systolic pressure is 30 mmHg. Aortic Valve Trisinus/trileaflet aortic valve. There is no aortic stenosis. No aortic valve insufficiency. Pulmonic Valve There is no pulmonic valvular stenosis. No pulmonic valve insufficiency. Great Vessels Normal aortic root. Pericardium/Pleural No pericardial effusion. Medication 22 gauge I.V. with prn adaptor inserted into left arm. Diluted definity 3ml given slow IV push to enhance endocardial definition. MMode/2D Measurements & Calculations LVIDd: 5.3 cm IVSd: 1.3 cm Ao root diam: 3.8 cm LVIDs: 3.7 cm LVPWd: 1.3 cm LA dimension: 4.9 cm FS: 29.8 % LAV(MOD-bp): 76.3 ml LVAd ap4: 38.3 cm2 SV(MOD-sp4): 98.2 ml LAV(MOD-bp) Indexed: 32.2 ml/m2 EDV(MOD-sp4): 140.9 ml LAV(MOD-sp2): 57.8 ml EDV(sp4-el): 145.1 ml LAV(MOD-sp4): 88.1 ml LVAs ap4: 19.4 cm2 ESV(MOD-sp4): 42.7 ml ESV(sp4-el): 43.8 ml EF(MOD-sp4): 69.7 % EF(sp4-el): 69.8 % SV(sp4-el): 101.2 ml LA A4 area: 27.2 cm2 Time Measurements MV dec time: 0.21 sec Doppler Measurements & Calculations MV E max gavino: 106.0 cm/sec Lat Peak E' Gavino: 10.3 cm/sec Med Peak E' Gavino: 7.5 cm/sec MV A max gavino: 96.4 cm/sec E/E' lat: 10.3 E/E' med: 14.2 MV E/A: 1.1 MV V2 max: 126.1 cm/sec MV P1/2t max gavino: 127.6 cm/sec Ao V2 max: 153.6 cm/sec MV max P.4 mmHg MV P1/2t: 94.1 msec Ao max P.4 mmHg MV V2 mean: 71.0 cm/sec MV mean P.4 mmHg MV dec slope: 397.0 cm/sec2 MV V2 VTI: 44.1 cm MVA(P1/2t): 2.3 cm2 LV V1 max: 131.5 cm/sec PA V2 max: 111.3 cm/sec TR max gavino: 257.1 cm/sec LV V1 max P.9 mmHg TR max P.4 mmHg Interpretation Summary The estimated ejection fraction is 70 %. No evidence for diastolic dysfunction. The study was technically difficult. Contrast injection was performed. Ordering Physician: Joy Conner Referring Physician: Joy Conner Performed By: Geo Barron RCS
== END ==
PROVIDERS: PCP Family Medicine; Referring Provider Family Medicine; Visit Provider Family Medicine
DX: I51.7 Cardiomegaly (principal)
CPT/HCPCS: 93306; Q9957; A4216

== ENCOUNTER 2020-12-08 18:26 | Emergency (ER) | payer MEDICARE, SELFPAY ==
[2020-12-08 18:28] VITALS: BP 168/153; PULSE 119; RESP 24; TEMP 35.6; O2SAT 93; BMI 44.9
[2020-12-08 18:32] VITALS: BP 168/153; PULSE 120; RESP 24; TEMP 35.6; O2SAT 93
--- NOTE | 2020-12-08 19:23 | ED.VIS.GEN ---
History of Present Illness Chief Complaint: Nausea/Vomiting Informant: Patient Narrative: 30-year-old diabetic male tells me he came to the emergency department because he was having nausea and vomiting today and has not ate. He has not checked his blood sugars. When I enter the room he asked me if I am his doctor I tell him yes. He tells me that he was feeling ill when he came in but is no longer feeling ill and does not wish to stay in the hospital. He does not wish me to complete a true physical exam run any test or give any treatment. He would like to leave AMA. Capacity - Capacity Assessment Tool Can the patient make a choice & communicate that choice?: Yes Can the patient understand benefits, risks and alternatives?: Yes Can the patient make a logical, rational choice?: Yes Is the choice the patient makes consistent w/ their values?: Yes Is there an impending, emergent risk to the patient?: Unable to Determine Does the patient have an Advance Directive?: No Is there a Surrogate Available?: No i.e. HCPOA: No i.e. close relative (spouse, child, parent, sibling)?: No - Past Medical History (1) Chronic venous insufficiency Status: Chronic (2) Venous stasis dermatitis Status: Chronic (3) Venous ulcer of right leg Status: Chronic (4) Obesity (BMI 30-39.9) Status: Chronic (5) Hypertension Status: Chronic (6) Diabetes mellitus Status: Chronic (7) Hyperlipidemia Status: Chronic (8) Uncontrolled diabetes mellitus type 2 without complications Status: Chronic Comment: On lilia inhibitor On daily asa On statin BP 133/76 A1c checked on PCP office, no results available. No records avialable. Past Medical History - Allergies and Home Meds Allergies/Adverse Reactions: Allergies No Known Allergies Allergy (Unverified 07/02/18 10:37) Primary Care Physician: Clayton Petty MD [Primary Care Provider] - As soon as possible Surgical History: no surgical history Lives: Spouse/ Significant Other Smoking Status: Former smoker Drugs: None - Family History Paternal Family History: Family History (Last Updated 07/02/18 @ 10:53 by Winter Cardoso) Father Heart disease Mother Heart disease Sister Cancer FH: mental illness Brother Diabetes FH: mental illness Family History: Reports: - - Patient's father in his 50s with black lung disease. He was a minor. Patient's mother in her 50s, from a cerebrovascular accident. Review of Systems General: Reports: Malaise. Denies: Chills, Fever, Sweats Eyes: Denies: Visual changes - bilaterally, Diplopia ENT: Denies: Rhinorrhea, Sore throat Cardiovascular: Denies: Chest pain, Palpitations Respiratory: Denies: Dyspnea, Cough, Dyspnea on exertion Gastrointestinal: Reports: Nausea, Vomiting. Denies: Abdominal pain, Diarrhea, Melena, Hematochezia Genitourinary: Denies: Dysuria, Hematuria, Frequency Musculoskeletal: Denies: Back pain, Extremity Pain Skin: Reports: - - Diaphoresis. Denies: Rash, Wounds Neurological: Denies: Headache, Weakness, Numbness Physical Exam Vital Signs/Narrative: Vital Signs Temp Pulse Resp BP Pulse Ox 12/08/20 18:32 96.0 F L 120 H 24 H 168/153 H 93 12/08/20 18:28 96.0 F L 119 H 24 H 168/153 H 93 Inital Vital Signs reviewed: Yes General: Well nourished, Well developed, Obese, No Acute Distress Head: Normocephalic, Atraumatic ENT: Moist mucous membranes, No rhinorrhea Cardiovascular: Regular rhythm, Tachycardia Respiratory: No distress, CTA bilaterally Abdomen: Soft, Nontender Skin: Normal color, No rash Neurological: Alert, Oriented x3 Psychological: Normal affect, Normal Mood Diagnostic/Tx/Re-eval - Medical Decision Making Patient appears to have capacity to make this decision. He will sign out AMA. I asked him if there is anything I can do to change his mind and allow us to treat him and he states no. He tells me that if he gets to feeling worse he will come back. ED Disposition - Plan for ED Patient: Disposition: Against Medical Advice Diagnosis: Vomiting, Diabetes mellitus Instructions: ED Vomiting (Adult) Referrals: Clayton Petty MD [Primary Care Provider] - As soon as possible
== END 2020-12-08 19:53 | disposition left against medical advice (07) ==
LOC: ED 19:35
PROVIDERS: Emergency Provider Emergency Medicine; PCP Family Medicine
DX: R11.2 Nausea with vomiting, unspecified (principal); E11.9 Type 2 diabetes mellitus without complications; Z53.21 Procedure and treatment not carried out due to patient leaving prior to being seen by health care provider; I87.2 Venous insufficiency (chronic) (peripheral); I10 Essential (primary) hypertension; E78.5 Hyperlipidemia, unspecified; E66.9 Obesity, unspecified; Z79.4 Long term (current) use of insulin; Z79.82 Long term (current) use of aspirin; Z79.899 Other long term (current) drug therapy; Z87.891 Personal history of nicotine dependence
CPT/HCPCS: 99283

== ENCOUNTER → 2020-12-09 11:15 | Outpatient (CLI) | payer MEDICARE, SELFPAY ==
[2020-12-08 18:28] VITALS: BMI 44.9
[2020-12-09 12:18] LABS: Absolute Lymphocyte Count 1.99 X10^3/uL (0.83-4.51); Absolute Neutrophil Count 8.3 X10^3/uL (2.0-7.7); Basophil# 0.08 X10^3/uL; Basophil% 0.7 % (0-1); Eosinophil# 0.06 X10^3/uL; Eosinophils% 0.5 % (0-5); Hematocrit 37.3 % (40-54); Hemoglobin 11.7 g/dL (13.0-16.5); Lymphocyte # 1.99 X10^3/ul (4.0); Lymphocyte % 16.4 % (19-41); Mean Corp Hgb Conc 31.4 g/dL (32-36); Mean Corpuscular Hgb 28.7 pg (27.0-32.0); Mean Corpuscular Volume 91.6 fL (80-94); Mean Platelet Vol. 11.2 fl (6.2-12.0); Monocyte# 1.69 X10^3/uL; Monocyte% 13.9 % (0-10); NRBC Flagged by Analyzer 0 % (0-5); Neutrophil # 8.28 X10^3/uL (2.7-7.7); Neutrophil % 67.9 % (47-70); POSITIVE DIFFERENTIAL YES; Platelet Count 229 K/mm3 (150-450); RBC Distribution Width CV 14.7 % (11.6-14.6); RBC Distribution Width SD 49.7 fl (35.1-43.9); Red Blood Count 4.07 M/mm3 (4.6-6.2); White Blood Count 12.2 K/mm3 (4.4-11.0)
[2020-12-09 12:23] LABS: Differential Indicated SCAN CRITERIA MET
[2020-12-09 12:45] LABS: Differential Comment SCANNED
[2020-12-09 12:59] LABS: Anion Gap 7 (5-15); BUN 25 mg/dL (7-18); BUN/Creat Ratio 26.3 RATIO (10-20); Calcium,Total 8.6 mg/dL (8.5-10.1); Chloride 104 mmol/L (98-107); Cholesterol 122 mg/dL (200); Creatinine, Serum 0.95 mg/dL (0.70-1.30); EST Glomerular Filtration Rate 83 mL/min (>60); Est Glom Filt Rate - Afr Amer 100 mL/min (>60); Glucose 140 mg/dL (74-106); High Density Lipoprotein 37 mg/dL; Potassium 4.1 mmol/L (3.5-5.1); Sodium Level 138 mmol/L (136-145); Triglycerides 146 mg/dL; Very Low Density Lipoprotein 29 mg/dL (5-40)
[2020-12-10 12:01] LABS: Pathologist Review Reviewed
== END ==
PROVIDERS: PCP Family Medicine; Referring Provider Family Medicine; Visit Provider Family Medicine
DX: E11.8 Type 2 diabetes mellitus with unspecified complications (principal); R11.0 Nausea
CPT/HCPCS: 36415; 80048; 80061; 85025

== ENCOUNTER 2021-01-24 11:19 | Inpatient (IN) | payer OTHER, MEDICARE, SELFPAY ==
[2021-01-24] VITALS (7 sets, daily range): BP systolic 123–156; BP diastolic 49–74; PULSE 73–88; RESP 16–22; TEMP 36.6–37.7; O2SAT 88–97; BMI 43.0; BMI 41.8; BMI 41.6
--- NOTE | 2021-01-24 11:21 | EKG12_ITS ---
Test Reason : Blood Pressure : / mmHG Vent. Rate : 081 BPM Atrial Rate : 081 BPM P-R Int : 274 ms QRS Dur : 100 ms QT Int : 378 ms P-R-T Axes : 085 038 073 degrees QTc Int : 439 ms Sinus rhythm with 1st degree A-V block Otherwise normal ECG Confirmed by STEWART GAINES, CARYL ([id number]), editorial clerk VINOD OWUSU ([id number]) on 01/26/2021 10:59:01 AM Referred By: ZOILA Confirmed By:CARYL WILLIAM MD
--- NOTE | 2021-01-24 11:22 | RAD_ITS ---
STUDY: X-RAY - PELVIS AND RIGHT HIP REASON FOR EXAM: Male, 70 years old. trauma TECHNIQUE: 3 views of the pelvis and hip. COMPARISON: 07/25/2012 FINDINGS: There is a non-specific bowel gas pattern. Normal visualized soft tissue structures. Normal bilateral iliac wings, sacroiliac joints and visualized sacrum. Normal bilateral superior and inferior pubic rami. Normal pubic symphysis. Normal bilateral ischial tuberosities. Acute nondisplaced oblique fracture of the intertrochanteric right femur. Normal acetabulum. Normal hip joint. RAD/HIP, UNI W/ Pelvis 2-3 Views IMPRESSION: Acute nondisplaced oblique fracture of the intertrochanteric right femur. Electronically Signed: Edil Painter MD at 13:49 EST Tel , Service support ,
--- NOTE | 2021-01-24 11:22 | RAD_ITS ---
STUDY: X-RAY CHEST REASON FOR EXAM: Male, 70 years old. sob TECHNIQUE: Single AP portable view of the chest. COMPARISON: 08/16/2020 FINDINGS: The lungs are clear and expanded. Small left pleural effusion. There is moderate cardiac enlargement. Normal mediastinum and mark. Normal visualized pulmonary arteries. Normal visualized aortic arch and descending thoracic aorta. Normal visualized thoracic spine. Normal visualized ribs, clavicles, and shoulders. There is no demonstrated abnormality of the visualized soft tissue structures of the upper abdomen. RAD/Chest 1 View (Portable) IMPRESSION: Small left pleural effusion. Electronically Signed: Edil Painter MD at 13:48 EST Tel , Service support ,
--- NOTE | 2021-01-24 11:24 | ED.VIS.GEN ---
History of Present Illness Chief Complaint: Fall Informant: Patient Onset: Today Context: Sudden Onset Timing: Continuous Current Severity: Moderate Maximum Severity: Moderate Narrative: Patient is a 70-year-old male medical history significant for diabetes, not on anticoagulation, who presents to the emergency department after a fall. Patient states that he was leaning to flush his toilet. 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 He landed on his right side. He did not strike his head or lose consciousness. He was unable to get up because of pain in his right hip. He was brought in by EMS. He states he was not syndrome or prodromal prior to this fall. He states it was strictly mechanical. He normally ambulates without a walker. Prior similar symptoms: No Recent Illness/Hospitalization: No Past Medical History - Allergies and Home Meds Allergies/Adverse Reactions: Allergies No Known Allergies Allergy (Unverified 01/24/21 11:49) Primary Care Physician: Clayton Petty MD [Primary Care Provider] - Prior records reviewed: Yes Past Medical History: - - Diabetes, hypertension Surgical History: no surgical history Smoking Status: Former smoker - Family History Paternal Family History: Family History (Last Updated 07/02/18 @ 10:53 by Winter Cardoso) Father Heart disease Mother Heart disease Sister Cancer FH: mental illness Brother Diabetes FH: mental illness Family History: Reports: - - Patient's father in his 50s with black lung disease. He was a minor. Patient's mother in her 50s, from a cerebrovascular accident. Review of Systems General: Denies: Chills, Fever, Sweats Eyes: Denies: Visual changes - bilaterally, Diplopia ENT: Denies: Rhinorrhea, Sore throat Cardiovascular: Denies: Chest pain, Palpitations Respiratory: Denies: Dyspnea, Cough, Dyspnea on exertion Gastrointestinal: Denies: Abdominal pain, Nausea, Vomiting, Diarrhea, Melena, Hematochezia Genitourinary: Denies: Dysuria, Hematuria, Frequency Musculoskeletal: Denies: Back pain, Extremity Pain Skin: Denies: Rash, Wounds Neurological: Denies: Headache, Weakness, Numbness Physical Exam Inital Vital Signs reviewed: Yes General: Well nourished, Well developed, No Acute Distress Head: Normocephalic, Atraumatic Eyes: Perrl, EOMI ENT: Moist mucous membranes, No rhinorrhea Neck: Supple, Nontender Cardiovascular: Regular rate, Regular rhythm, No murmurs Respiratory: No distress, CTA bilaterally, Chest nontender Abdomen: Soft, Nontender, Nondistended, Normal bowel sounds Back: Nontender, Normal Inspection Extremities: No edema, Tenderness - Patient has tenderness over the right hip. Normal pulses. Sensation preserved to light touch. Skin: Normal color, No rash Neurological: Alert, Oriented x3, Cranial nerves II-XII grossly intact, Normal Strength, Normal Sensation Psychological: Normal affect, Normal Mood Diagnostic/Tx/Re-eval Abnormal Lab Results 01/24/21 01/24/21 01/24/21 12:10 12:10 12:10 WBC 8.5 RBC 3.93 L Hgb 11.2 L Hct 37.1 L MCV 94.4 H MCH 28.5 MCHC 30.2 L RDW Std Deviation 52.3 H RDW Coeff of Lc 15.1 H Plt Count 169 MPV 11.0 Immature Gran % (Auto) 1.800 H Neut % (Auto) 69.9 Lymph % (Auto) 13.7 L Prentiss % (Auto) 8.6 Eos % (Auto) 5.1 H Baso % (Auto) 0.9 Absolute Neuts (auto) 5.9 Absolute Lymphs (auto) 1.16 Nucleated RBC % 0 PT 12.3 INR 1.0 Sodium 140 Potassium 4.9 Chloride 106 Carbon Dioxide 29.0 Anion Gap 5 BUN 40 H Creatinine 1.49 H Estim Creat Clear Calc 46.95 Est GFR (MDRD) Af Amer 60 Est GFR (MDRD) Non-Af 49 L BUN/Creatinine Ratio 26.8 H Glucose 369 H Calcium 8.6 Total Bilirubin 0.30 AST 29 ALT 48 Alkaline Phosphatase 101 Total Protein 6.7 Albumin 3.3 Globulin 3.4 Albumin/Globulin Ratio 1.0 - Medical Decision Making The patient had a mechanical fall. He did not strike his head. He is awake and alert. Plain films were obtained. The patient does have evidence of a right intertrochanteric hip fracture. This was reviewed by myself. Metabolic work-up was unremarkable. I did discuss the case with orthopedics, Dr. Crane. He did request medicine admission for clearance. The patient was discussed with the hospitalist and will be admitted. Impression 1. Right intertrochanteric hip fracture ED Disposition - Plan for ED Patient: Referrals: Clayton ePtty MD [Primary Care Provider] -
[2021-01-24 12:18] LABS: Absolute Lymphocyte Count 1.16 X10^3/uL (0.83-4.51); Absolute Neutrophil Count 5.9 X10^3/uL (2.0-7.7); Basophil# 0.08 X10^3/uL; Basophil% 0.9 % (0-1); Eosinophil# 0.43 X10^3/uL; Eosinophils% 5.1 % (0-5); Hematocrit 37.1 % (40-54); Hemoglobin 11.2 g/dL (13.0-16.5); Lymphocyte # 1.16 X10^3/ul (4.0); Lymphocyte % 13.7 % (19-41); Mean Corp Hgb Conc 30.2 g/dL (32-36); Mean Corpuscular Hgb 28.5 pg (27.0-32.0); Mean Corpuscular Volume 94.4 fL (80-94); Monocyte# 0.73 X10^3/uL; Monocyte% 8.6 % (0-10); NRBC Flagged by Analyzer 0 % (0-5); Neutrophil # 5.91 X10^3/uL (2.7-7.7); Neutrophil % 69.9 % (47-70); Platelet Count 169 K/mm3 (150-450); RBC Distribution Width CV 15.1 % (11.6-14.6); RBC Distribution Width SD 52.3 fl (35.1-43.9); Red Blood Count 3.93 M/mm3 (4.6-6.2); White Blood Count 8.5 K/mm3 (4.4-11.0)
[2021-01-24] MEDS: Morphine 4 MG/ML Syringe IV (12:19)
[2021-01-24] MEDS: Ondansetron 4 MG/2 ML Vial IV (12:19)
[2021-01-24 12:28] LABS: Prothrombin Time (Protime)PT. 12.3 SECONDS (11.7-14.9)
[2021-01-24 12:35] LABS: AST(SGOT) 29 U/L (15-37); Alanine Aminotransfer ALT/SGPT 48 U/L (16-61); Albumin, Serum 3.3 g/dL (3.2-5.0); Alkaline Phosphatase 101 U/L (45-117); Anion Gap 5 (5-15); BUN 40 mg/dL (7-18); BUN/Creat Ratio 26.8 RATIO (10-20); Calcium,Total 8.6 mg/dL (8.5-10.1); Chloride 106 mmol/L (98-107); Creatinine, Serum 1.49 mg/dL (0.70-1.30); EST Glomerular Filtration Rate 49 mL/min (>60); Est Glom Filt Rate - Afr Amer 60 mL/min (>60); Estimated Creatinine Clearance 46.95 ml/min; Globulin 3.4 g/dL (2.2-4.2); Glucose 369 mg/dL (74-106); Potassium 4.9 mmol/L (3.5-5.1); Protein, Total 6.7 g/dL (6.4-8.2); Sodium Level 140 mmol/L (136-145)
[2021-01-24] MEDS: Morphine 2 MG/ML Syringe IV ×2 (13:50→20:33)
[2021-01-24 15:36] LABS: Bedside Glucose 334 mg/dL (70-110)
--- NOTE | 2021-01-24 16:08 | HP.PCM_ITS ---
Problem List (1) Closed right hip fracture Status: Acute (2) LIO (acute kidney injury) Status: Acute (3) Chronic venous insufficiency Status: Chronic (4) Venous hypertension, chronic, with ulcer and inflammation Status: Chronic Qualifiers: Laterality: right (5) Leg swelling Status: Chronic (6) Leg edema Status: Chronic (7) Venous stasis dermatitis Status: Chronic Qualifiers: Laterality: bilateral (8) Venous ulcer of right leg Status: Chronic (9) Obesity (BMI 30-39.9) Status: Chronic (10) Hypertension Status: Chronic (11) Diabetes mellitus Status: Chronic (12) Hyperlipidemia Status: Chronic (13) Ulcer of right lower extremity with fat layer exposed Status: Chronic (14) Diabetic neuropathy Status: Chronic (15) Uncontrolled diabetes mellitus type 2 without complications Status: Chronic Comment: On lilia inhibitor On daily asa On statin BP 133/76 A1c checked on PCP office, no results available. No records avialable. History of Present Illness Date of Admission: 01/24/21 Mr. Olsen is a 70 year old WM with a past medical history of DM-2 (on U5 100 insulin), hypertension, hyperlipidemia, anxiety and depression, vitamin D deficiency, insomnia, GERD, BPH, and diabetic neuropathy noted to the emergency department [facility] on 02/06/2021 after sustaining a mechanical fall this morning. He reports that he was leaning to flush the toilet and lost the trimmer hand on the handle and fell. He landed on his right side. He did not lose consciousness or hit his head. He reports that he was unable to get up secondary to right hip pain and he was brought in to the emergency department via squad. At baseline he ambulates without a walker. Eitel signs in the emergency department were within normal limits. CBC shows a mild anemia at baseline and appears to be chronic. His coagulation studies are within normal limits. BMP shows normal electrolytes but a BUN of 40 and a creatinine of 1.49 which is abnormal for him. His baseline creatinine appears to be 0.8-1. His blood sugar on admission was 369. The patient reports that he takes 195 units of U5 100 insulin twice a day. EKG showed normal sinus rhythm without ST-T wave changes. His chest x-ray is a small left pleural effusion. Hip and pelvic x- ray show an acute nondisplaced oblique intertrochanteric fracture of the right femur. Case was discussed with Dr. Crane from orthopedics and the plan is to take the patient to the OR tomorrow morning after medical optimization. Past Medical History Past Medical History (Chronic Problems): Chronic Problems (Last Updated 07/02/18 @ 11:27 by Winter Cardoso) Chronic venous insufficiency (Chronic) Venous hypertension, chronic, with ulcer and inflammation (Chronic) Leg swelling (Chronic) Leg edema (Chronic) Venous stasis dermatitis (Chronic) Venous ulcer of right leg (Chronic) Obesity (BMI 30-39.9) (Chronic) Hypertension (Chronic) Diabetes mellitus (Chronic) Hyperlipidemia (Chronic) Ulcer of right lower extremity with fat layer exposed (Chronic) Diabetic neuropathy (Chronic) Uncontrolled diabetes mellitus type 2 without complications (Chronic) On lilia inhibitor On daily asa On statin BP 133/76 A1c checked on PCP office, no results available. No records avialable. Medical History: Medical History (Last Reviewed 01/24/21 @ 16:[address] Luanne Rojas, DO) Anxiety and depression F41.9, F32.9 Arthritis M19.90 Back problem M53.9 Chronic bronchitis J42 Chronic headaches R51 H/O: pneumonia Z87.01 Hearing problem H91.90 High cholesterol E78.00 Recurrent UTI N39.0 Seasonal allergies J30.2 Type 2 diabetes mellitus E11.9 Dx : 2007 Last exacerbation : DKA : never Hypoglycemic episode : never ER visit : never Vision problem H54.7 HTN (hypertension) I10 Allergies No Known Allergies Allergy (Unverified 01/24/21 11:49) Home Medications: Ambulatory Orders Medication Instructions Recorded atorvastatin 80 mg tablet 80 mg PO QHS 07/02/18 ferrous sulfate 325 mg (65 mg 325 mg PO BID tab 07/02/18 iron) tablet lisinopril 20 2 tab PO DAILY tab 07/02/18 mg-hydrochlorothiazide 12.5 mg tablet metformin 500 mg tablet 1,000 mg PO BID tab 07/02/18 prazosin 5 mg capsule 5 mg PO QHS 07/02/18 Atenolol 25 mg PO DAILY 05/13/19 Cyanocobalamin (Vitamin B-12) 1,000 mcg PO DAILY 05/13/19 [Vitamin B-12] Melatonin 6 mg PO QHS 05/13/19 Omeprazole 40 mg PO BID 05/13/19 Venlafaxine HCl [Venlafaxine HCl 150 mg PO DAILY 05/13/19 ER] Amlodipine Besylate 10 mg PO DAILY 01/24/21 Ascorbic Acid [Vitamin C] 250 mg PO BID 01/24/21 Aspirin 162.5 mg PO DAILY@0800 01/24/21 Cholecalciferol (VIT D3) [Vitamin 2,000 unit PO DAILY 01/24/21 D] Ezetimibe [Zetia] 10 mg PO DAILY 01/24/21 Folic Acid 1 mg PO DAILY 01/24/21 Insulin U-500 *Concentrated* 195 units SC BIDAC 01/24/21 [Humulin R U-500 *Concentrated Insulin*] Magnesium 250 mg PO DAILY 01/24/21 Multivit-Min/FA/Lycopen/Lutein 1 ea PO DAILY 01/24/21 [Centrum Silver Tablet] Henley-3 Fatty Acids/Fish Oil [Fish 2 ea PO TID 01/24/21 Oil 1,000 mg Capsule] Pregabalin 200 mg PO BID 01/24/21 Pyridoxine HCl [Vitamin B-6] 200 mg PO DAILY 01/24/21 Triamcinolone Acetonide 1 applic TP BID 01/24/21 busPIRone [Buspar] 10 mg PO BID 01/24/21 Surgical History: no surgical history Psychiatric History: Anxiety, Depression Lives: Spouse/ Significant Other Smoking Status: Former smoker Tobacco Use: Cigarettes, Chew Alcohol: Rare Drugs: None - *Family History Paternal Family History: Family History (Last Reviewed 01/24/21 @ 16:[address] Luanne Rojas, DO) Father Heart disease Mother Heart disease Sister Cancer FH: mental illness Brother Diabetes FH: mental illness History Items: - - Patient's father in his 50s with black lung disease. He was a minor. Patient's mother in her 50s, from a cerebrovascular accident. Review of Systems Constitutional: Denies: Anorexia, Chills, Fever, Night Sweats, Malaise, Weakness, Weight Change, Fatigue Eyes: Denies: Blurred vision, Cataracts, Conjunctivae Inflammation, Double vision, Drainage, Eyelid Inflammation, Pain, Redness, Vision Change HEENT: Reports: Difficulty Hearing, Hard of Hearing. Denies: Difficulty Swallowing, Ear Pain, Eye Pain, Head Aches, Nasal bleeding, Nasal Congestion, Post Nasal Drip, Sinus Congestion, Sinus Drainage, Sore Throat, Visual Changes Cardiovascular: Reports: Edema - Chronic. Denies: Chest Pain, Claudication, Chest Pressure, Chest Tightness, Heaviness, Light Headedness, Orthopnea, Palpitations, Paroxysmal Noc. Dyspnea, Syncope Respiratory: Denies: Cough, Hemoptysis, Pleuritic Pain, Shortness of Breath, Shortness of breath at rest, Shortness of breath upon exertion, Sputum production, Wheezing Gastrointestinal: Denies: Abdominal Pain, Constipation, Diarrhea, Dyspepsia, Hematemesis, Hematochezia, Nausea, Melena, Vomiting Genitourinary: Reports: Frequency, Hesitancy, Nocturia. Denies: Dysuria, Hematuria, Incontinence, Retention, Urgency Musculoskeletal: Reports: Joint Pain, Joint Tenderness, Leg Pain. Denies: Back Pain, Joint stiffness, Muscle pain, Neck Pain Skin: Reports: Dryness - Bilateral feet, Wounds - Chronic wounds bilateral lower extremities distally. Denies: Jaundice, Lesions, Pruritis, Rash, Skin Changes Neurological: Denies: Balance problems, Blurred vision, Double vision, Change in Speech, Slurred speech, Confusion, Difficulty swallowing, Focal weakness, Headaches, Incoordination, Numbness, Tingling, Tremor, Seizures Psychiatric: Denies: Anxiety, Depression Endocrine: Denies: Change in Body Habitus, Heat/ Cold Intolerance, Polydipsia, Polyuria Hematologic/ Lymphatic: Denies: Adenopathy, Anemia, Easy Bruising, Easy Bleeding, Petechiae, Purpura VTE Information - Inpt Only VTE Present on Admission: No VTE Mechan Device Prophylaxis: SCD's VTE Pharm Prophylaxis ordered?: Yes - Physical Exam Vitals/I&O's: Vital Signs Temp Pulse Resp BP Pulse Ox 98.9 F 73 22 H 128/61 H 94 01/24/21 14:49 01/24/21 14:49 01/24/21 14:49 01/24/21 14:49 01/24/21 15:20 Oxygen Flow Rate (L/min) 2 Oxygen Delivery Method Nasal Cannula Weight: 132.041 kg Body Mass Index (BMI) 41.8 Intake and Output for Last 24 Hours 01/22/21 01/23/21 01/24/21 23:59 23:59 23:59 Intake Total 500 / 500 Balance 500 / 500 General: Alert, Oriented x3, Cooperative, No apparent distress, Well developed, Well nourished, - - Morbidly obese white male lying in bed flat, right leg is shortened and externally rotated, at bedside HEENT: Atraumatic, PERRLA, EOMI, Normocephalic, EAC Clear Oral: Moist Mucosa, No Gingival or Mucosal Lesions/ Ulcerations, - - Mallampati 4, poor dentition, no thrush Neck: Supple, No JVD, Negative Carotid Bruits, Negative Hepatojugular Reflux, No Nodes, No Nuchal Rigidity, Trachea Midline, Thyroid Normal Size and Texture Lungs: Clear to auscultation, No rhonchi, No wheeze - Usually, No rales, Diminished, - - Distant secondary to body habitus Cardiovascular: Regular rate, Regular Rhythm, Normal S1, Normal S2, No murmurs, No Ectopic Activity, No rub noted, No Gallop Abdomen: Bowel Sounds Present, Soft, Non Tender, Non-Distended, Obese, No hernias noted Extremities: No clubbing, No cyanosis, Capillary Refill Less than 3 Seconds, Edema - Lateral lower extremity chronic pitting edema, Peripheral Pulses Normal Skin: No rashes, Ulcer/ Wound - Bilateral lower extremity shins secondary to venous stasis wounds--> home dressings are currently in place Musculoskeletal: No Muscle Wasting, Arthritic Changes, Tenderness, - - Lower extremity shortened and externally rotated Lymphatic: No Cervical, Supraclavicular, or Inguinal Adenopathy Neurological: Cranial nerves II-XII grossly intact, Deep Tendon Reflexes 2+/4 and Symmetrical, Motor Exam 5/5 strength throughout - Right lower extremity not tested, Muscle tone normal, Coordination normal, - - Lateral lower extremity neuropathy-distally Psych/Mental Status: Normal Affect, Appropriate, - - Pleasant Laboratory Results 01/24/21 12:10: WBC 8.5, RBC 3.93 L, Hgb 11.2 L, Hct 37.1 L, MCV 94.4 H, MCH 28.5, MCHC 30.2 L, RDW Std Deviation 52.3 H, RDW Coeff of Lc 15.1 H, Plt Count 169, MPV 11.0, Immature Gran % (Auto) 1.800 H, Neut % (Auto) 69.9, Lymph % (Auto) 13.7 L, Murray % (Auto) 8.6, Eos % (Auto) 5.1 H, Baso % (Auto) 0.9, Absolute Neuts (auto) 5.9, Absolute Lymphs (auto) 1.16, Nucleated RBC % 0 01/24/21 12:10: PT 12.3, INR 1.0 01/24/21 12:10: Sodium 140, Potassium 4.9, Chloride 106, Carbon Dioxide 29.0, Anion Gap 5, BUN 40 H, Creatinine 1.49 H, Estim Creat Clear Calc 46.95, Est GFR (MDRD) Af Amer 60, Est GFR (MDRD) Non-Af 49 L, BUN/Creatinine Ratio 26.8 H, Glucose 369 H, Calcium 8.6, Total Bilirubin 0.30, AST 29, ALT 48, Alkaline Phosphatase 101, Total Protein 6.7, Albumin 3.3, Globulin 3.4, Albumin/Globulin Ratio 1.0 01/24/21 15:33: POC Glucose 334 H Current Medications Acetaminophen (Acetaminophen 325 Mg Tablet) 650 mg PO Q6H PRN PRN PRN Reason: Pain Score 1-10/Temp > 100.7 F Al Hydroxide/Mg Hydroxide (Mag Hydrox/Al Hydrox/Simeth 30 Ml Udc) 30 ml PO Q6H PRN PRN PRN Reason: Gastric Burning Albuterol Sulfate (Albuterol 2.5 Mg/3 Ml Vial.Neb.) 2.5 mg INHALATION Q2H PRN PRN PRN Reason: Shortness of Breath/Wheezing Amlodipine Besylate (Amlodipine 10 Mg Tablet) 10 mg PO DAILY [facility] Aspirin (Aspirin 325 Mg Tablet) 325 mg PO DAILY@0800 [facility] Atenolol (Atenolol 25 Mg Tablet) 25 mg PO DAILY [facility] Atorvastatin Calcium (Atorvastatin Calcium 80 Mg Tablet) 80 mg PO QHS [facility] Buspirone HCl (Buspirone 5 Mg Tablet) 10 mg PO BID [facility] Doxazosin Mesylate (Doxazosin 4 Mg Tablet) 4 mg PO QHS [facility] Ezetimibe (Ezetimibe 10 Mg Tablet) 10 mg PO DAILY [facility] Enoxaparin Sodium (Enoxaparin 40 Mg/0.4 Ml Syringe) 40 mg SC DAILY [facility] Ferrous Sulfate (Ferrous Sulfate 325 Mg Tablet) 325 mg PO BID@1200,1700 [facility] Folic Acid (F[facility] Acid 1 Mg Tablet) [facility] Hydralazine HCl (Hydralazine 20 Mg/Ml Vial) 10 mg IV Q6H PRN PRN PRN Reason: SBP > 160 Lactated Ringer's () 1,000 mls @ 75 mls/hr IV .[id number] [facility] Influenza Virus Vaccine Quadrival (Influenza Vaccine (6mos+)/Pf 0.5 Ml Syringe) 0.5 ml IM .ONCE ONE Stop: 01/25/21 10:01 Insulin Human Lispro (Insulin Lispro 100 Unit/Ml Insuln.Pen) 0 unit SC ACHS APRIL; Protocol Insulin Human Regular (Insulin U-500 Units/Ml Pen) 150 units SC BIDAC APRIL Melatonin (Melatonin 3 Mg Tablet) 3 mg PO QHS PRN PRN PRN Reason: INSOMNIA Morphine Sulfate (Morphine 2 Mg/Ml Syringe) 2 mg IV Q3H PRN PRN PRN Reason: Pain Score 6-10 Nutritional Formula (Nutritional Supplement (Román) Packet) 1 packet PO BIDCM [facility] Ondansetron HCl (Ondansetron 4 Mg/2 Ml Vial) 4 mg IV Q8H PRN PRN PRN Reason: NAUSEA/VOMITING Oxycodone HCl (Oxycodone 5 Mg Tablet) 5 mg PO Q4H PRN PRN PRN Reason: Pain Score 4-5 Pantoprazole Sodium (Pantoprazole Sodium 40 Mg Tablet) 40 mg PO BID APRIL Pregabalin (Pregabalin 50 Mg Capsule) 200 mg PO BID [facility]IL Pyridoxine HCl (Pyridoxine Hcl 100 Mg Tablet) 200 mg PO DAILY [facility] Senna/Docusate Sodium (Senna/Docusate Sodium 1 Tablet) 2 tablet PO BID PRN PRN PRN Reason: Constipation Venlafaxine HCl (Venlafaxine Xr 150 Mg Capsule) 150 mg PO DAILY [facility] Assessment/Plan All Active Problems (Last Updated 07/02/18 @ 11:27 by Winter Cardoso) Closed right hip fracture (Acute) LIO (acute kidney injury) (Acute) Right nondisplaced intertrochanteric hip fracture -Check echo in the preoperative as patient has slightly elevated risk with his medical history -No history of acute cardiac events but patient has multiple risk factors -EKG is unimpressive and shows no acute ST-T wave changes -NSQIP surgical risk calculator shows the patient is at slightly above average risk for most outcomes that are measured -Specifically readmission and discharged to a nursing or rehab facility -Check vitamin D level -P.o. after midnight -Pain management with oxycodone and morphine for breakthrough -Regimen with as needed senna and scheduled MiraLAX -We will reduce 500 insulin from 195 units twice daily to 150 units twice daily -Start LR at 75 cc an hour at 2200 -HCTZ and lisinopril in the perioperative. -Hold metformin in the perioperative. -Continue full dose aspirin -Lovenox for DVT prophylaxis -Consult Dr. Crane from orthopedics -Consult PT and OT -Patient will likely need to go to rehab prior to discharge home after surgery LIO -LR at 75 cc an hour -Repeat BMP in a.m. -Baseline creatinine is 0.8-1 DM-2 (uncontrolled) -We will decrease U5 100 insulin dose from 195 units twice daily to 150 units twice daily in the preop and perioperative timeframe -SSI before meals and at bedtime -Check SSI -Continue home aspirin 162 mg daily Anemia -Continue home supplemental iron tablets -Blood counts appear to be at baseline -Repeat CBC in morning and postoperatively Bilateral lower extremity chronic venous ulcers -Patient had been seen at the wound center in the past - is currently been managing his wounds -Consult wound nurse Hypertension -Continue atenolol 25 mg daily -New amlodipine 10 mg daily -Hold lisinopril 20 mg daily -Hold hydrochlorothiazide to 12.5 mg daily -Hydralazine 10 mg every 6 hours as needed for systolic blood pressure greater than 160 Hyperlipidemia -Continue Zetia -Continue atorvastatin BPH -Continue prazosin 5 mg nightly GERD -Continue PPI Depression/anxiety -Continue Effexor -New BuSpar ANNEMARIE -Patient noncompliant with CPAP secondary to intolerance -May want to consider CPAP in the postoperative period prevent hypercapnia Obesity -BMI 41.8 -Recommend weight loss -Complicates overall prognosis and medical management DVT prophylaxis -Lovenox 40 mg daily CODE STATUS -Full code Inpatient E&M: 95499 Init Hosp L3
[2021-01-24] MEDS: Insulin U-500 UNITS/ML PEN 150 UNITS SC (16:14)
--- NOTE | 2021-01-24 16:15 | ECHOCS_ITS ---
Reason For Study: Pre Op Procedure This was a 2D Doppler, Color Flow transthoracic echocardiogram. Technically difficult study due to patients body habitus and condition. Patient scanned sitting upright due to right Femur fracture discomfort. The study was technically difficult. Contrast injection was performed. Exam performed portable in patient room. Left Ventricle Moderate concentric left ventricular hypertrophy. Based upon the 2D echocardiographic and contrast images obtained there appears to be grossly normal left ventricular size, wall motion, and systolic function. The estimated ejection fraction is 65 %. Diastolic function is indeterminate. Right Ventricle Based upon the 2D echocardiographic and contrast enhanced images obtained there appears to be grossly normal right ventricular size and systolic function. Atria Normal left atrium. Normal right atrium. No doppler evidence for ASD. Mitral Valve There is no mitral annular calcification. Normal mitral valve. Trivial mitral valve insufficiency. Tricuspid Valve Normal tricuspid valve. Trivial tricuspid valve insufficiency. Unable to estimate RV systolic pressure/pulmonary artery pressure due to technically difficult study. Aortic Valve Trisinus/trileaflet aortic valve. Moderate focal aortic valve calcification. Pulmonic Valve The pulmonic valve is not well visualized. Great Vessels Normal sized aortic root. Pericardium/Pleural No pericardial effusion. Medication Diluted definity 4ml given slow IV push to enhance endocardial definition. MMode/2D Measurements & Calculations LVIDd: 4.4 cm IVSd: 1.6 cm Ao root diam: 3.9 cm LVIDs: 3.2 cm LVPWd: 1.6 cm LA dimension: 4.8 cm FS: 27.6 % LAV(MOD-sp4): 131.1 ml LA A4 area: 34.8 cm2 RA A4 area: 32.7 cm2 Time Measurements MV dec time: 0.18 sec Doppler Measurements & Calculations MV E max gavino: 93.8 cm/sec Lat Peak E' Gavino: 9.9 cm/sec Med Peak E' Gavino: 10.2 cm/sec MV A max gavino: 116.4 cm/sec E/E' lat: 9.4 E/E' med: 9.2 MV E/A: 0.81 MV V2 max: 129.0 cm/sec MV P1/2t max gavino: 106.9 cm/sec Ao V2 max: 195.5 cm/sec MV max P.7 mmHg MV P1/2t: 63.2 msec Ao max P.3 mmHg MV V2 mean: 82.7 cm/sec MV dec slope: 495.6 cm/sec2 Ao V2 mean: 139.8 cm/sec MV mean P.0 mmHg Ao mean P.7 mmHg MV V2 VTI: 25.3 cm MVA(P1/2t): 3.5 cm2 Ao V2 VTI: 33.0 cm LV V1 max: 147.7 cm/sec PA V2 max: 144.5 cm/sec LV V1 max P.7 mmHg LV V1 mean P.5 mmHg LV V1 mean: 98.6 cm/sec LV V1 VTI: 27.4 cm Interpretation Summary The study was technically difficult. Contrast injection was performed. Based upon the 2D echocardiographic and contrast images obtained there appears to be grossly normal left ventricular size, wall motion, and systolic function. The estimated ejection fraction is 65 %. Moderate concentric left ventricular hypertrophy. Trivial mitral valve insufficiency. Trivial tricuspid valve insufficiency. Moderate focal aortic valve calcification. Unable to estimate RV systolic pressure/pulmonary artery pressure due to technically difficult study. Diastolic function is indeterminate. Ordering Physician: Luanne Rojas Referring Physician: Pravin Petty MD Performed By: Geo Barron RCS
[2021-01-24] MEDS: Acetaminophen 325 MG Tablet 650 MG PO (16:25)
[2021-01-24] MEDS: oxyCODONE 5 MG Tablet PO (16:25)
[2021-01-24] MEDS: Ferrous Sulfate 325 MG Tablet PO (16:27)
[2021-01-24] MEDS: Insulin Lispro 100 UNIT/ML INSULN.PEN SC ×2 (16:37→21:25)
[2021-01-24 19:21] LABS: Bedside Glucose 306 mg/dL (70-110)
[2021-01-24] MEDS: Lactated Ringers 1,000 ML 75 ML IV (20:21)
[2021-01-24] MEDS: Atorvastatin Calcium 80 MG Tablet PO (21:22)
[2021-01-24] MEDS: Doxazosin 4 MG Tablet PO (21:22)
[2021-01-24] MEDS: busPIRone 5 MG Tablet 10 MG PO (21:22)
[2021-01-24] MEDS: Pregabalin 50 MG Capsule 200 MG PO (21:23)
[2021-01-24] MEDS: Pantoprazole Sodium 40 MG Tablet PO (21:23)
[2021-01-24 22:21] LABS: Bedside Glucose 267 mg/dL (70-110)
[2021-01-25] VITALS (18 sets, daily range): BP systolic 131–162; BP diastolic 51–88; PULSE 79–100; RESP 16–22; TEMP 37–38.2; O2SAT 90–96; BMI 41.6; BMI 41.8
[2021-01-25] MEDS: oxyCODONE 5 MG Tablet PO (02:40)
[2021-01-25] MEDS: Acetaminophen 325 MG Tablet 650 MG PO (02:40)
[2021-01-25 05:56] LABS: Absolute Lymphocyte Count 1.38 X10^3/uL (0.83-4.51); Absolute Neutrophil Count 6.3 X10^3/uL (2.0-7.7); Basophil# 0.07 X10^3/uL; Basophil% 0.8 % (0-1); Eosinophil# 0.44 X10^3/uL; Eosinophils% 4.8 % (0-5); Hematocrit 33.3 % (40-54); Lymphocyte # 1.38 X10^3/ul (4.0); Mean Corpuscular Hgb 28.7 pg (27.0-32.0); Mean Corpuscular Volume 95.7 fL (80-94); Mean Platelet Vol. 11.2 fl (6.2-12.0); Monocyte# 0.91 X10^3/uL; Monocyte% 9.9 % (0-10); NRBC Flagged by Analyzer 0 % (0-5); Neutrophil # 6.31 X10^3/uL (2.7-7.7); Neutrophil % 68.8 % (47-70); Platelet Count 144 K/mm3 (150-450); RBC Distribution Width CV 15.2 % (11.6-14.6); RBC Distribution Width SD 53.3 fl (35.1-43.9); Red Blood Count 3.48 M/mm3 (4.6-6.2); White Blood Count 9.2 K/mm3 (4.4-11.0)
[2021-01-25 06:13] LABS: Prothrombin Time (Protime)PT. 12.6 SECONDS (11.7-14.9)
[2021-01-25 06:29] LABS: AST(SGOT) 27 U/L (15-37); Alanine Aminotransfer ALT/SGPT 38 U/L (16-61); Albumin, Serum 2.9 g/dL (3.2-5.0); Alkaline Phosphatase 83 U/L (45-117); Anion Gap 3 (5-15); BUN 40 mg/dL (7-18); BUN/Creat Ratio 36.7 RATIO (10-20); Calcium,Total 8.3 mg/dL (8.5-10.1); Chloride 106 mmol/L (98-107); Creatinine, Serum 1.09 mg/dL (0.70-1.30); EST Glomerular Filtration Rate 71 mL/min (>60); Est Glom Filt Rate - Afr Amer 86 mL/min (>60); Estimated Creatinine Clearance 64.18 ml/min; Glucose 230 mg/dL (74-106); Magnesium 1.9 mg/dL (1.6-2.6); Phosphorus 3.1 mg/dL (2.5-4.9); Potassium 4.8 mmol/L (3.5-5.1); Protein, Total 5.9 g/dL (6.4-8.2); Sodium Level 138 mmol/L (136-145)
--- NOTE | 2021-01-25 07:18 | PN_ITS ---
Patient Problems: Active and Suspected Problems (Last Reviewed 01/24/21 @ 16:[address] Luanne Rojas DO) Closed right hip fracture (Acute) LIO (acute kidney injury) (Acute) Reason for Visit: Right nondisplaced intertrochanteric hip fracture Subjective: Patient is a 70-year-old male presented following a mechanical fall imaging studies demonstrated right nondisplaced intertrochanteric hip fracture Objective: GENERAL:. Delirious HEENT: Atraumatic; EYES; Anicteric, Normal Conjunctiva NECK; supple, normal thyroid, RESPIRATORY: Diminished to auscultation CARDIOVASCULAR: Regular S1 S2, GI: soft, normoactive bowel sounds, : No Renal angle tenderness; EXTREMITIES: No edema, no clubbing, MUSCULOSKELETAL: no muscle waisting NEURO: Awake; no lateralizing signs. SKIN: No Rash PSYCH; Flat affect Vitals/I&O's: Vital Signs Temp Pulse Resp BP Pulse Ox 99.1 F 95 18 132/70 H 94 01/25/21 04:25 01/25/21 04:25 01/25/21 04:25 01/25/21 04:25 01/25/21 04:25 Oxygen Flow Rate (L/min) 2 Oxygen Delivery Method Nasal Cannula Weight: 132.04 kg Body Mass Index (BMI) 41.6 Intake and Output for Last 24 Hours 01/23/21 01/24/21 01/25/21 23:59 23:59 23:59 Intake Total 750 / 750 Output Total 500 / 500 800 / 800 Balance 250 / 250 -800 / -800 Microbiology Past 72 Hours 01/24/21 15:42 Mucosa - Nose SARS-CoV-2 Antigen (Rapid) - Final Laboratory Results 01/24/21 12:10: WBC 8.5, RBC 3.93 L, Hgb 11.2 L, Hct 37.1 L, MCV 94.4 H, MCH 28.5, MCHC 30.2 L, RDW Std Deviation 52.3 H, RDW Coeff of Lc 15.1 H, Plt Count 169, MPV 11.0, Immature Gran % (Auto) 1.800 H, Neut % (Auto) 69.9, Lymph % (Auto) 13.7 L, Mitchell % (Auto) 8.6, Eos % (Auto) 5.1 H, Baso % (Auto) 0.9, Absolute Neuts (auto) 5.9, Absolute Lymphs (auto) 1.16, Nucleated RBC % 0 01/24/21 12:10: PT 12.3, INR 1.0 01/24/21 12:10: Sodium 140, Potassium 4.9, Chloride 106, Carbon Dioxide 29.0, Anion Gap 5, BUN 40 H, Creatinine 1.49 H, Estim Creat Clear Calc 46.95, Est GFR (MDRD) Af Amer 60, Est GFR (MDRD) Non-Af 49 L, BUN/Creatinine Ratio 26.8 H, Glucose 369 H, Calcium 8.6, Total Bilirubin 0.30, AST 29, ALT 48, Alkaline Phosphatase 101, Total Protein 6.7, Albumin 3.3, Globulin 3.4, Albumin/Globulin Ratio 1.0 01/24/21 15:33: POC Glucose 334 H 01/24/21 19:18: POC Glucose 306 H 01/24/21 21:25: POC Glucose 267 H 01/25/21 05:30: WBC 9.2, RBC 3.48 L, Hgb 10.0 L, Hct 33.3 L, MCV 95.7 H, MCH 28.7, MCHC 30.0 L, RDW Std Deviation 53.3 H, RDW Coeff of Lc 15.2 H, Plt Count 144 L, MPV 11.2, Immature Gran % (Auto) 0.700, Neut % (Auto) 68.8, Lymph % (Auto) 15.0 L, Mitchell % (Auto) 9.9, Eos % (Auto) 4.8, Baso % (Auto) 0.8, Absolute Neuts (auto) 6.3, Absolute Lymphs (auto) 1.38, Nucleated RBC % 0 01/25/21 05:30: Sodium 138, Potassium 4.8, Chloride 106, Carbon Dioxide 29.0, Anion Gap 3 L, BUN 40 H, Creatinine 1.09, Estim Creat Clear Calc 64.18, Est GFR (MDRD) Af Amer 86, Est GFR (MDRD) Non-Af 71, BUN/Creatinine Ratio 36.7 H, Glucose 230 H, Calcium 8.3 L, Phosphorus 3.1, Magnesium 1.9, Total Bilirubin 0.30, AST 27, ALT 38, Alkaline Phosphatase 83, Total Protein 5.9 L, Albumin 2.9 L, Globulin 3.0, Albumin/Globulin Ratio 1.0 01/25/21 05:30: PT 12.6, INR 1.0 01/25/21 05:30: Vitamin D 25-Hydroxy Pending 01/25/21 05:30: Hemoglobin A1c Pending 01/25/21 05:30: Blood Type O POSITIVE, Antibody Screen NEGATIVE Current Medications Acetaminophen (Acetaminophen 325 Mg Tablet) 650 mg PO Q6H PRN PRN PRN Reason: Pain Score 1-10/Temp > 100.7 F Last Admin: 01/25/21 02:40 Dose: 650 mg Documented by: Al Hydroxide/Mg Hydroxide (Mag Hydrox/Al Hydrox/Simeth 30 Ml Udc) 30 ml PO Q6H PRN PRN PRN Reason: Gastric Burning Albuterol Sulfate (Albuterol 2.5 Mg/3 Ml Vial.Neb.) 2.5 mg INHALATION Q2H PRN PRN PRN Reason: Shortness of Breath/Wheezing Amlodipine Besylate (Amlodipine 10 Mg Tablet) 10 mg PO DAILY REPLACED BY [facility] Aspirin (Aspirin 325 Mg Tablet) 325 mg PO DAILY@0800 REPLACED BY [facility] Atenolol (Atenolol 25 Mg Tablet) 25 mg PO DAILY REPLACED BY [facility] Atorvastatin Calcium (Atorvastatin Calcium 80 Mg Tablet) 80 mg PO QHS REPLACED BY [facility] Last Admin: 01/24/21 21:22 Dose: 80 mg Documented by: Buspirone HCl (Buspirone 5 Mg Tablet) 10 mg PO BID REPLACED BY [facility] Last Admin: 01/24/21 21:22 Dose: 10 mg Documented by: Doxazosin Mesylate (Doxazosin 4 Mg Tablet) 4 mg PO QHS REPLACED BY [facility] Last Admin: 01/24/21 21:22 Dose: 4 mg Documented by: Ezetimibe (Ezetimibe 10 Mg Tablet) 10 mg PO DAILY REPLACED BY [facility] Enoxaparin Sodium (Enoxaparin 40 Mg/0.4 Ml Syringe) 40 mg SC DAILY REPLACED BY [facility] Ferrous Sulfate (Ferrous Sulfate 325 Mg Tablet) 325 mg PO BID@1200,1700 REPLACED BY [facility] Last Admin: 01/24/21 16:27 Dose: 325 mg Documented by: Folic Acid (Folic Acid 1 Mg Tablet) [facility] Hydralazine HCl (Hydralazine 20 Mg/Ml Vial) 10 mg IV Q6H PRN PRN PRN Reason: SBP > 160 Lactated Ringer's () 1,000 mls @ 75 mls/hr IV .[id number] REPLACED BY [facility] Last Admin: 01/24/21 20:21 Dose: 75 mls/hr Documented by: Cefazolin Sodium 2 gm/ Sodium (Chloride) 110 mls @ 150 mls/hr IV X1 ONE Stop: 01/25/21 14:13 Influenza Virus Vaccine Quadrival (Influenza Vaccine (6mos+)/Pf 0.5 Ml Syringe) 0.5 ml IM .ONCE ONE Stop: 01/25/21 10:01 Insulin Human Lispro (Insulin Lispro 100 Unit/Ml Insuln.Pen) 0 unit SC ACHS REPLACED BY [facility]; Protocol Last Admin: 01/24/21 21:25 Dose: 3 units Documented by: Insulin Human Regular (Insulin U-500 Units/Ml Pen) [facility] Last Admin: 01/24/21 16:14 Dose: 150 units Documented by: Melatonin (Melatonin 3 Mg Tablet) 3 mg PO QHS PRN PRN PRN Reason: INSOMNIA Morphine Sulfate (Morphine 2 Mg/Ml Syringe) 2 mg IV Q3H PRN PRN PRN Reason: Pain Score 6-10 Last Admin: 01/24/21 20:33 Dose: 2 mg Documented by: Nutritional Formula (Nutritional Supplement (Román) Packet) 1 [facility] Last Admin: 01/24/21 16:32 Dose: 1 packet Documented by: Ondansetron HCl (Ondansetron 4 Mg/2 Ml Vial) 4 mg IV Q8H PRN PRN PRN Reason: NAUSEA/VOMITING Oxycodone HCl (Oxycodone 5 Mg Tablet) 5 mg PO Q4H PRN PRN PRN Reason: Pain Score 4-5 Last Admin: 01/25/21 02:40 Dose: 5 mg Documented by: Pantoprazole Sodium (Pantoprazole Sodium 40 Mg Tablet) 40 mg PO BID REPLACED BY [facility] Last Admin: 01/24/21 21:23 Dose: 40 mg Documented by: Polyethylene Glycol (Polyethylene Glycol 3350 17 Gm Packet) 17 gm PO DAILY REPLACED BY [facility] Pregabalin (Pregabalin 50 Mg Capsule) 200 mg PO BID REPLACED BY [facility] Last Admin: 01/24/21 21:23 Dose: 200 mg Documented by: Pyridoxine HCl (Pyridoxine Hcl 100 Mg Tablet) 200 mg PO DAILY REPLACED BY [facility] Senna/Docusate Sodium (Senna/Docusate Sodium 1 Tablet) 2 tablet PO BID PRN PRN PRN Reason: Constipation Venlafaxine HCl (Venlafaxine Xr 150 Mg Capsule) 150 mg PO DAILY APRIL STROKE Vital Signs/Narrative: Vital Signs Temp Pulse Resp BP Pulse Ox 01/25/21 04:25 99.1 F 95 18 132/70 H 94 Medical Necessity - Tobacco Use Smoking Status: Former smoker Tobacco Use: Cigarettes, Chew Assessment/Plan All Active Problems (Last Reviewed 01/24/21 @ 16:[address] Luanne Rojas, DO) Closed right hip fracture (Acute) LIO (acute kidney injury) (Acute) Patient is a 70-year-old male presented following a mechanical fall imaging studies demonstrated right nondisplaced intertrochanteric hip fracture 1. Right nondisplaced intertrochanteric hip fracture ?Admitted to a regular nursing floor managed with immobilization pain management with consultation placed to orthopedic surgery Dr. Crane, with plans for patient to undergo surgical intervention on 01/25/2021. Patient perioperative risk assessment performed by admitting physician. 2. Acute renal insufficiency ?managed with IV fluids kidney function back to baseline 3. Diabetes mellitus type II -patient's oral hypoglycemics held. Placed on long acting insulin, Accu-Cheks a.c. and at bedtime and covered with sliding scale insulin 4. Anemia - Secondary to chronic disorder monitoring H&H and transfuse if patient becomes symptomatic or hemoglobin falls below 7 5. Hypertension - Blood pressure controlled, home medications continued with dose adjustment as needed 6. Dyslipidemia -Patient is on statin therapy, continued at home dose 7. GERD ?On PPI 8. BPH ?Patient is on prazosin at night 9. Depression with anxiety ?Patient is on Effexor as well as BuSpar 10. Obstructive sleep apnea ?Patient apparently noncompliant with CPAP therapy 11. Morbid obesity - With a BMI of 41 patient was counseled on weight reduction 12. Acute encephalopathy ?Per nursing staff this became more obvious once patient's left. Patient may have underlying cognitive disorder which has been exacerbated by pain as we ll as pain medications. There appears to be no obvious source of infection to account for his encephalopathy patient had acute renal insufficiency on admission which has since resolved 13. DVT prophylaxis ?Lovenox Inpatient E&M: [id number] [facility] L3
[2021-01-25 07:59] LABS: Hemoglobin A1c 8.2 % (3.8-5.6)
[2021-01-25 08:16] LABS: Bedside Glucose 265 mg/dL (70-110)
[2021-01-25 08:27] LABS: Vitamin D,25 Hydroxy 8.5 ng/mL
[2021-01-25] MEDS: Lactated Ringers 1,000 ML 75 ML IV ×2 (09:21→23:38)
[2021-01-25] MEDS: Atenolol 25 MG Tablet PO (09:22)
[2021-01-25] MEDS: Pantoprazole Sodium 40 MG Tablet PO ×2 (09:23→21:44)
[2021-01-25] MEDS: amLODIPine 10 MG Tablet PO (09:23)
[2021-01-25] MEDS: Insulin U-500 UNITS/ML PEN 150 UNITS SC (09:25)
--- NOTE | 2021-01-25 10:00 | CASEMGMT ---
Palliative screening tool completed for [facility]. Patient does not qualify for Palliative per screening tool.
--- NOTE | 2021-01-25 10:23 | CASEMGMT ---
Social Work Note Per helmet hat sweatband puncher questions, Pt has completed HCPOA and LW and provided copies to [facility]. SW reviewed chart, no copies found. SW in to speak with pt. SW introduced self and role at [facility]. Pt is alert and orientated. SW updated pt that no copies are found in chart of LW and HCPOA. Pt states he likely has copies at home, able to bring in copies. Adwoa Chamberlain FOOT SPECIALIST, RESIDENTIAL PROPERTY CONSULTANT
--- NOTE | 2021-01-25 10:30 | CASEMGMT ---
RN CM Face to Face with patient for initial transition planning/care coordination assessment. RN CM introduced self and role at [facility]. Patient lying in bed, alert and oriented. Patient willing to participate in assessment and is able to answer all questions appropriately. Care providers, pharmacy, and demographics verified. Patient unsure of disposition at discharge. Will monitor patient for SNF vs HHC pending course of treatment and progress with therapy. Patient states he has no further needs or concerns at this time. CM to follow for discharge planning needs that may arise. PCP: Malinda Specialists: None Preferred Pharmacy: [facility] Insurance: [email or web address] [facility] Prescription Benefit: yes Living Will/HPOA: yes, Maria De Jesus Olsen LNOK: , daughter Living Arrangements: Patient lives with in a mobile home with 2 steps and railing to enter the home. Patient states he was independent at home. Transportation: self/ DME/HHC: Patient has shower chair, raised toilet, cane, walker, grab bars at home. Patient has had [facility], patient is active with [facility]. Disposition Plan: TBD by course of treatment and progress with therapy. Adwoa JIMENEZN, RN, CM
[2021-01-25 12:05] LABS: Bedside Glucose 205 mg/dL (70-110)
[2021-01-25] MEDS: Insulin Lispro 100 UNIT/ML INSULN.PEN SC ×3 (12:25→21:55)
--- NOTE | 2021-01-25 13:30 | RAD_ITS ---
STUDY: X-RAY - RIGHT FEMUR REASON FOR STUDY: Male, 70 years old. FX TECHNIQUE: Fluoroscopic guidance was provided during operative procedure of ORIF surgery of the right proximal femur. The radiologist was not present in the room. 8 images were obtained during the exam. COMPARISON: None. FINDINGS: 8 images obtained during the exam at different stages of the preprocedure with final placement of an intramedullary henny traversing the proximal femoral shaft and femoral neck. There is normal alignment at the level of the femoral neck fracture. RAD/Femur Min 2 Views IMPRESSION: Fluoroscopic guidance for ORIF surgery of the right proximal femur as described. For details please see operative report. Electronically Signed: Meaghan Diane MD at 0:55 EST , Service support ,
--- NOTE | 2021-01-25 13:54 | PCM.CONS.GEN ---
Reason for Consult Date of Consultation: 01/25/21 Reason for Consultation: Right hip pain requested by Dr. Rojas History of Present Illness: The patient is a 70 year old M with history of COPD anxiety depression hypertension type 2 diabetes and periodic ulcerations on bilateral lower extremities presents today after a fall. Patient states he was getting up off the toilet when he let go of the grab bar falling onto the floor. His states she heard him fall quite hard. He had severe 10 out of 10 pain and inability to bear weight. He was brought to the emergency department where he was found to have an intertrochanteric hip fracture on the right side. Patient reports 7 out of 10 pain right now worse with motion better with immobilization. Dull achy pain in his thigh. No associated numbness and tingling. Mild swelling associated. Patient normally ambulates with a Rollator walker both in and outside of the home. Him and his limit home in their own residence. They do have a service that comes and arranges his medicine every other week. Past Medical History Past Medical History (Chronic Problems): Chronic Problems (Last Reviewed 01/24/21 @ 16:[address] Luanne Rojas DO) Chronic venous insufficiency (Chronic) Venous hypertension, chronic, with ulcer and inflammation (Chronic) Leg swelling (Chronic) Leg edema (Chronic) Venous stasis dermatitis (Chronic) Venous ulcer of right leg (Chronic) Obesity (BMI 30-39.9) (Chronic) Hypertension (Chronic) Diabetes mellitus (Chronic) Hyperlipidemia (Chronic) Ulcer of right lower extremity with fat layer exposed (Chronic) Diabetic neuropathy (Chronic) Uncontrolled diabetes mellitus type 2 without complications (Chronic) On lilia inhibitor On daily asa On statin BP 133/76 A1c checked on PCP office, no results available. No records avialable. Medical History: Medical History (Last Reviewed 01/24/21 @ 16:[address] Luanne Rojas DO) Anxiety and depression F41.9, F32.9 Arthritis M19.90 Back problem M53.9 Chronic bronchitis J42 Chronic headaches R51 H/O: pneumonia Z87.01 Hearing problem H91.90 High cholesterol E78.00 Recurrent UTI N39.0 Seasonal allergies J30.2 Type 2 diabetes mellitus E11.9 Dx : 2007 Last exacerbation : DKA : never Hypoglycemic episode : never ER visit : never Vision problem H54.7 HTN (hypertension) I10 Allergies No Known Allergies Allergy (Unverified 01/24/21 11:49) Home Medications: Ambulatory Orders Medication Instructions Recorded atorvastatin 80 mg tablet 80 mg PO QHS 07/02/18 ferrous sulfate 325 mg (65 mg 325 mg PO BID tab 07/02/18 iron) tablet lisinopril 20 2 tab PO DAILY tab 07/02/18 mg-hydrochlorothiazide 12.5 mg tablet metformin 500 mg tablet 1,000 mg PO BID tab 07/02/18 prazosin 5 mg capsule 5 mg PO QHS 07/02/18 Atenolol 25 mg PO DAILY 05/13/19 Cyanocobalamin (Vitamin B-12) 1,000 mcg PO DAILY 05/13/19 [Vitamin B-12] Melatonin 6 mg PO QHS 05/13/19 Omeprazole 40 mg PO BID 05/13/19 Venlafaxine HCl [Venlafaxine HCl 150 mg PO DAILY 05/13/19 ER] Amlodipine Besylate 10 mg PO DAILY 01/24/21 Ascorbic Acid [Vitamin C] 250 mg PO BID 01/24/21 Aspirin 162.5 mg PO DAILY@0800 01/24/21 Cholecalciferol (VIT D3) [Vitamin 2,000 unit PO DAILY 01/24/21 D] Ezetimibe [Zetia] 10 mg PO DAILY 01/24/21 Folic Acid 1 mg PO DAILY 01/24/21 Insulin U-500 *Concentrated* 195 units SC BIDAC 01/24/21 [Humulin R U-500 *Concentrated Insulin*] Magnesium 250 mg PO DAILY 01/24/21 Multivit-Min/FA/Lycopen/Lutein 1 ea PO DAILY 01/24/21 [Centrum Silver Tablet] [place]-3 Fatty Acids/Fish Oil [Fish 2 ea PO TID 01/24/21 Oil 1,000 mg Capsule] Pregabalin 200 mg PO BID 01/24/21 Pyridoxine HCl [Vitamin B-6] 200 mg PO DAILY 01/24/21 Triamcinolone Acetonide 1 applic TP BID 01/24/21 busPIRone [Buspar] 10 mg PO BID 01/24/21 Surgical History: no surgical history Psychiatric History: Anxiety, Depression Lives: Spouse/ Significant Other Smoking Status: Former smoker Tobacco Use: Cigarettes, Chew Alcohol: Rare Drugs: None - *Family History Paternal Family History: Family History (Last Reviewed 01/24/21 @ 16:[address] Luanne Rojas DO) Father Heart disease Mother Heart disease Sister Cancer FH: mental illness Brother Diabetes FH: mental illness History Items: - - Patient's father in his 50s with black lung disease. He was a minor. Patient's mother in her 50s, from a cerebrovascular accident. Review of Systems Constitutional: Reports: Weakness. Denies: Chills, Fever, Weight Change HEENT: Denies: Head Aches, Sinus Congestion, Sinus Drainage Cardiovascular: Denies: Chest Pain, Palpitations Respiratory: Denies: Cough, Shortness of breath at rest, Sputum production Gastrointestinal: Denies: Abdominal Pain, Nausea, Vomiting Genitourinary: Denies: Dysuria Musculoskeletal: Reports: Joint Pain, Joint Tenderness Skin: Denies: Rash, Wounds Neurological: Denies: Numbness, Tingling, Focal weakness Psychiatric: Denies: Anxiety, Depression, Homicidal Ideations, Suicidal Ideations Hematologic/ Lymphatic: Denies: Easy Bruising, Easy Bleeding Patient Problems: Active and Suspected Problems (Last Reviewed 01/24/21 @ 16:[address] Luanne Rojas DO) Closed right hip fracture (Acute) LIO (acute kidney injury) (Acute) - Physical Exam Vitals/I&O's: Vital Signs Temp Pulse Resp BP Pulse Ox 99.9 F H 80 20 H 144/66 H 94 01/25/21 11:54 01/25/21 11:54 01/25/21 11:54 01/25/21 11:54 01/25/21 11:54 Oxygen Flow Rate (L/min) 3 Oxygen Delivery Method Nasal Cannula Weight: 291 lb 1.574 oz Body Mass Index (BMI) 41.6 Intake and Output for Last 24 Hours 01/23/21 01/24/21 01/25/21 23:59 23:59 23:59 Intake Total 750 / 750 975 / 975 Output Total 500 / 500 1400 / 1400 Balance 250 / 250 -425 / -425 General: Alert, Oriented x3, Cooperative, - - Morbidly obese HEENT: Atraumatic, PERRLA, Normocephalic Neck: No JVD Lungs: - - Nonlabored breathing Abdomen: Non Tender Extremities: - - Right lower extremity: Skin clean, dry, and intact. Limb is shortened and externally rotated Motor is intact dorsiflexion, EHL and plantar flexion. Sensation is intact to light touch saphenous, michel,l superficial peroneal, deep peroneal and tibial distributions. Calves are soft and supple. Skin: No rashes Musculoskeletal: Tenderness Neurological: Cranial nerves II-XII grossly intact Psych/Mental Status: Normal Affect, Appropriate Microbiology Past 72 Hours 01/24/21 15:42 Mucosa - Nose SARS-CoV-2 Antigen (Rapid) - Final Laboratory Results 01/24/21 15:33: POC Glucose 334 H 01/24/21 19:18: POC Glucose 306 H 01/24/21 21:25: POC Glucose 267 H 01/25/21 05:30: WBC 9.2, RBC 3.48 L, Hgb 10.0 L, Hct 33.3 L, MCV 95.7 H, MCH 28.7, MCHC 30.0 L, RDW Std Deviation 53.3 H, RDW Coeff of Lc 15.2 H, Plt Count 144 L, MPV 11.2, Immature Gran % (Auto) 0.700, Neut % (Auto) 68.8, Lymph % (Auto) 15.0 L, Lane % (Auto) 9.9, Eos % (Auto) 4.8, Baso % (Auto) 0.8, Absolute Neuts (auto) 6.3, Absolute Lymphs (auto) 1.38, Nucleated RBC % 0 01/25/21 05:30: Sodium 138, Potassium 4.8, Chloride 106, Carbon Dioxide 29.0, Anion Gap 3 L, BUN 40 H, Creatinine 1.09, Estim Creat Clear Calc 64.18, Est GFR (MDRD) Af Amer 86, Est GFR (MDRD) Non-Af 71, BUN/Creatinine Ratio 36.7 H, Glucose 230 H, Calcium 8.3 L, Phosphorus 3.1, Magnesium 1.9, Total Bilirubin 0.30, AST 27, ALT 38, Alkaline Phosphatase 83, Total Protein 5.9 L, Albumin 2.9 L, Globulin 3.0, Albumin/Globulin Ratio 1.0 01/25/21 05:30: PT 12.6, INR 1.0 01/25/21 05:30: Vitamin D 25-Hydroxy 8.5 01/25/21 05:30: Hemoglobin A1c 8.2 H 01/25/21 05:30: Blood Type O POSITIVE, Antibody Screen NEGATIVE 01/25/21 08:07: POC Glucose 265 H 01/25/21 11:59: POC Glucose 205 H Current Medications Acetaminophen (Acetaminophen 325 Mg Tablet) 650 mg PO Q6H PRN PRN PRN Reason: Pain Score 1-10/Temp > 100.7 F Last Admin: 01/25/21 02:40 Dose: 650 mg Documented by: Al Hydroxide/Mg Hydroxide (Mag Hydrox/Al Hydrox/Simeth 30 Ml Udc) 30 ml PO Q6H PRN PRN PRN Reason: Gastric Burning Albuterol Sulfate (Albuterol 2.5 Mg/3 Ml Vial.Neb.) 2.5 mg INHALATION Q2H PRN PRN PRN Reason: Shortness of Breath/Wheezing Amlodipine Besylate (Amlodipine 10 Mg Tablet) 10 mg PO DAILY [facility] Last Admin: 01/25/21 09:23 Dose: 10 mg Documented by: Aspirin (Aspirin 325 Mg Tablet) 325 mg PO DAILY@0800 [facility] Last Admin: 01/25/21 09:14 Dose: Not Given Documented by: Atenolol (Atenolol 25 Mg Tablet) 25 mg PO DAILY [facility] Last Admin: 01/25/21 09:22 Dose: 25 mg Documented by: Atorvastatin Calcium (Atorvastatin Calcium 80 Mg Tablet) 80 mg PO QHS [facility] Last Admin: 01/24/21 21:22 Dose: 80 mg Documented by: Buspirone HCl (Buspirone 5 Mg Tablet) 10 mg PO BID [facility] Last Admin: 01/25/21 09:16 Dose: Not Given Documented by: Doxazosin Mesylate (Doxazosin 4 Mg Tablet) 4 mg PO QHS [facility] Last Admin: 01/24/21 21:22 Dose: 4 mg Documented by: Ezetimibe (Ezetimibe 10 Mg Tablet) 10 mg PO DAILY [facility] Last Admin: 01/25/21 09:27 Dose: Not Given Documented by: Enoxaparin Sodium (Enoxaparin 40 Mg/0.4 Ml Syringe) 40 mg SC DAILY [facility] Last Admin: 01/25/21 09:15 Dose: Not Given Documented by: Ferrous Sulfate (Ferrous Sulfate 325 Mg Tablet) 325 mg PO BID@1200,1700 [facility] Last Admin: 01/25/21 12:34 Dose: Not Given Documented by: Folic Acid ([facility] 1 Mg [facility] Admin: 01/25/21 09:14 Dose: Not Given Documented by: Hydralazine HCl (Hydralazine 20 Mg/Ml Vial) 10 mg IV Q6H PRN PRN PRN Reason: SBP > 160 Lactated Ringer's () 1,000 mls @ 75 mls/hr IV .[id number] [facility] Last Admin: 01/25/21 09:21 Dose: 75 mls/hr Documented by: Cefazolin Sodium 3 gm/ Sodium (Chloride) 115 mls @ 150 mls/hr IV PREOP ONE Stop: 01/25/21 14:15 Influenza Virus Vaccine Quadrival (Influenza Vaccine (6mos+)/Pf 0.5 Ml Syringe) 0.5 ml IM .ONCE ONE Stop: 01/26/21 10:01 Insulin Human Lispro (Insulin Lispro 100 Unit/Ml Insuln.Pen) 0 unit SC [facility]; Protocol Last Admin: 01/25/21 12:25 Dose: 2 units Documented by: Insulin Human Regular (Insulin U-500 Units/Ml Pen) [facility] Last Admin: 01/25/21 09:25 Dose: 75 units Documented by: Melatonin (Melatonin 3 Mg Tablet) 3 mg PO QHS PRN PRN PRN Reason: INSOMNIA Morphine Sulfate (Morphine 2 Mg/Ml Syringe) 2 mg IV Q3H PRN PRN PRN Reason: Pain Score 6-10 Last Admin: 01/24/21 20:33 Dose: 2 mg Documented by: Nutritional Formula (Nutritional Supplement (Román) Packet) [facility] Last Admin: 01/25/21 09:15 Dose: Not Given Documented by: Ondansetron HCl (Ondansetron 4 Mg/2 Ml Vial) 4 mg IV Q8H PRN PRN PRN Reason: NAUSEA/VOMITING Oxycodone HCl (Oxycodone 5 Mg Tablet) 5 mg PO Q4H PRN PRN PRN Reason: Pain Score 4-5 Last Admin: 01/25/21 02:40 Dose: 5 mg Documented by: Pantoprazole Sodium (Pantoprazole Sodium 40 Mg Tablet) 40 mg PO BID [facility] Last Admin: 01/25/21 09:23 Dose: 40 mg Documented by: Polyethylene Glycol (Polyethylene Glycol 3350 17 Gm Packet) 17 gm PO DAILY [facility] Last Admin: 01/25/21 09:16 Dose: Not Given Documented by: Pregabalin (Pregabalin 50 Mg Capsule) 200 mg PO BID [facility] Last Admin: 01/25/21 09:16 Dose: Not Given Documented by: Pyridoxine HCl (Pyridoxine Hcl 100 Mg Tablet) 200 mg PO DAILY [facility] Last Admin: 01/25/21 09:27 Dose: Not Given Documented by: Senna/Docusate Sodium (Senna/Docusate Sodium 1 Tablet) 2 tablet PO BID PRN PRN PRN Reason: Constipation Venlafaxine HCl (Venlafaxine Xr 150 Mg Capsule) 150 mg PO DAILY [facility] Last Admin: 01/25/21 09:17 Dose: Not Given Documented by: Assessment/Plan All Active Problems (Last Reviewed 01/24/21 @ 16:[address] Luanne Rojas, DO) Closed right hip fracture (Acute) LIO (acute kidney injury) (Acute) Right hip intertrochanteric fracture. Natural history of the disease process and treatment options were discussed with the patient and his who is at the bedside. Treatment options discussed were intramedullary nailing and nonoperative treatment. At this time I recommended intramedullary nailing. Patient has been cleared for surgery. Risks and benefits of the procedure were discussed the patient as well as risks and benefits of generalized fracture care including but not limited to blood loss, DVTs, PEs, nervous damage, infection, general risk of anesthesia including loss of life, nonunions, malunions and hardware failure/screw cut out. Patient demonstrates an understanding and is able to sign informed consent. Him and his are agreeable to proceed with surgery today. Patient is n.p.o. Antibiotics on-call to the operating room. We will proceed with surgery this afternoon. [facility] Office:
--- NOTE | 2021-01-25 14:55 | OP.PCM_ITS ---
Report of Operation Date of Procedure: 01/25/21 Pre-Operative Diagnosis: Right intertrochanteric hip fracture Post-Operative Diagnosis: Right intertrochanteric hip fracture Surgery/Procedure Performed:: Right hip cephalomedullary nail Description of Surgical Findings:: Stable hip reduction burial vault setter: Eric Alfaro Type of Anesthesia:: General Anesthesiologist: Jose Eduardo Smith Special Medications: Ancef Estimated Blood Loss (mL): 250 Fluids Replaced: 10 mL crystalloid Description of Procedure: Components used: 1. Post & Nephew InterTAN nail 125 degree short nail, 10 mm 2. Post & Nephew InterTAN lag screw 105mm 3. Post & Nephew 32.5 millimeter interlocking screw Brief history operative indications: 70-year-old male presented with right intertrochanteric hip fracture. Treatment options for intertrochanteric hip fractures were discussed the patient as noted in the consultation. After extensive discussion including risk and benefits which include but are not limited to blood loss, PEs, DVTs, neurovascular damage, nonunions, malunions and screw cut out patient has elected to proceed with a right cephalo-medullary nail. Procedure: On the date of the procedure the patient's right hip was marked in the preoperative area and patient was taken back to the operating room. Anesthetic was administered and patient was transferred to the table were all bony prominence identified well-padded and the ipsilateral arm was placed across the chest. At this time we are able to fully examine his lower extremities as he had wraps on. The wraps were removed and patient did have a small superficial skin ulcerations due to vasculopathy. Patient was then translated down to the perineal post and the operative leg was placed in the boot while the nonoperative leg was lowered and secured. The operative leg was placed in traction and internal rotation and live fluoroscopy was used to verify adequate reduction. The operative leg was then prepped in a sterile fashion with chlorhexidine while the surgeon scrubbed. Upon reentering the room the operative extremity was draped in the standard orthopedic fashion. Skin incision was marked and a timeout was called. Everyone agreed upon the side, the site, the procedure be performed, patient's identity, and antibiotics given. Skin incision was made and the position of the entry guidepin was verified using live fluoroscopy. Once we were satisfied with our position the pin was advanced in the soft tissue protector was placed over the pin. The entry reamer was then advanced into the proximal portion of the femur. A guidewire was placed down the intramedullary canal and fluoroscopy was used to verify that the anterior cortex had not been breached distally as well as satisfactory distal positioning. We then used live fluoroscopy to verify the length of the nail and a Post & Nephew InterTAN short by 10 mm 125 degree hip nail was selected. The nail was then attached to the supervisory geographer and inserted into the intramedullary canal. The appropriate depth was verified and the skin incision for the lag screw was made. The lag screw guidepin was then placed under live fluoroscopy and when a satisfactory position was obtained the length of the screw was measured and the standard technique to drill for the lag screws was performed. The anti-rotation bar was used. At this time a 105 mm lag screw was selected with its corresponding compression screw. The lag screw was then passed and tr action was left off the leg. The compression screw was then passed and the fracture was compressed. The final position of the lag screw was verified under fluoroscopy. Attention was then turned to the distal portion of the nail and a entered extra medullary guide technique was used to locate the distal interlocking screw and a 32.5 mm distal interlocking screw was placed using this technique. Live fluoroscopy was used to verify the position of the interlocking screw and the final position of the hip components. Once we were satisfied with our positioning the wounds were copiously irrigated out with normal saline skin was closed with 2-0 Vicryl and kimberly for final skin closure. A sterile dressing was placed with Xeroform. Patient was then awakened by anesthesia transferred from the fracture table back to their hospital bed and transferred to the PACU for recovery. Postoperative plan: Patient will be weight-bear as tolerated. Recommend Xarelto for DVT prophylaxis secondary to limited mobility. Follow up in the office in 2 weeks. - Complications No intraoperative complications - Admit VTE Documentation VTE Present on Admission: No VTE Mechan Device Prophylaxis: SCD's, Thigh High SILVESTRE Hose VTE Pharm Prophylaxis ordered?: Yes
--- NOTE | 2021-01-25 15:35 | RAD_ITS ---
STUDY: X-RAY - PELVIS AND RIGHT HIP REASON FOR EXAM: Male, 70 years old. Post Op -- AP both hips on single domonique/lateral of op hip PACU TECHNIQUE: 2 views of the pelvis and hip. COMPARISON: 01/24/21 FINDINGS: Please note that the upper pelvis is excluded from the image. The patient is status post placement of a right-sided hip screw spanning the previously seen intertrochanteric fracture of the right femur. The hardware is intact and alignment is satisfactory. There is no new fracture. There is no dislocation. RAD/Hip Min 2 Views (Portable) IMPRESSION: Satisfactory postoperative changes. Electronically Signed: Bahman Fang MD at 16:55 EST Tel , Service support ,
[2021-01-25 15:51] LABS: Bedside Glucose 173 mg/dL (70-110)
--- NOTE | 2021-01-25 16:58 | CHAPLAIN ---
Type of Pastoral Visit ___ Initial Visit ___ Follow-up Visit ___ On-call Visit ___ General Patient Visit ___ Spiritual Assessment ___ Family Conference ___ Bereavement ___ Rapid Response ___ Code Blue ___ Other (describe below) Pastoral Care Referral From ___ Patient ___ Family ___ Nurse ___ Physician ___ Boatswain Mate ___ Tail Puller ___ Other (describe below) Sacrament/Intervention ___ Active listening ___ Anointing ___ Voodoo ___ Bereavement ___ Communion ___ Caroline exploration ___ ___ Life review ___ Prayer ___ Reconciliation ___ Sacrament of Sick ___ Supportive presence ___ Wedding ___ Other (describe below) Pastoral Comments two attempts made to visit patient but he and the bed are not in the room
[2021-01-25 17:55] LABS: Bedside Glucose 182 mg/dL (70-110)
[2021-01-25] MEDS: Ferrous Sulfate 325 MG Tablet PO (18:16)
[2021-01-25] MEDS: Ensure Surgery 237 ML LIQUID PO (18:19)
[2021-01-25] MEDS: Acetaminophen 500 MG Tablet 1000 MG PO ×2 (18:22→21:44)
[2021-01-25] MEDS: Pregabalin 50 MG Capsule 200 MG PO (21:44)
[2021-01-25] MEDS: Atorvastatin Calcium 80 MG Tablet PO (21:44)
[2021-01-25] MEDS: Doxazosin 4 MG Tablet PO (21:44)
[2021-01-25] MEDS: Cefazolin 1 GM/50 ML BAG IV (21:45)
[2021-01-25] MEDS: busPIRone 5 MG Tablet 10 MG PO (21:45)
[2021-01-25 22:01] LABS: Bedside Glucose 204 mg/dL (70-110)
[2021-01-26] VITALS (17 sets, daily range): BP systolic 121–172; BP diastolic 60–78; PULSE 85–110; RESP 16–102; TEMP 37.1–38.6; O2SAT 94–97; BMI 41.8
[2021-01-26] MEDS: hydrALAZINE 20 MG/ML Vial 10 MG IV ×2 (01:28→16:32)
[2021-01-26] MEDS: Cefazolin 1 GM/50 ML BAG IV (05:17)
[2021-01-26] MEDS: Acetaminophen 500 MG Tablet 1000 MG PO ×3 (05:19→20:28)
[2021-01-26 06:30] LABS: Hemoglobin 9.3 g/dL (13.0-16.5); Mean Corpuscular Hgb 28.4 pg (27.0-32.0); Mean Corpuscular Volume 94.5 fL (80-94); Mean Platelet Vol. 10.9 fl (6.2-12.0); Platelet Count 122 K/mm3 (150-450); RBC Distribution Width SD 52.8 fl (35.1-43.9); Red Blood Count 3.28 M/mm3 (4.6-6.2); White Blood Count 9.4 K/mm3 (4.4-11.0)
--- NOTE | 2021-01-26 06:41 | RAD_ITS ---
STUDY: X-RAY CHEST REASON FOR EXAM: Male, 70 years old. low grade fever TECHNIQUE: Single AP portable view of the chest. COMPARISON: 01/24/2021 FINDINGS: The lungs are clear and expanded. There is no demonstrated pleural abnormality. There is moderate cardiac enlargement. Normal mediastinum and mark. Normal visualized pulmonary arteries. Normal visualized aortic arch and descending thoracic aorta. Normal visualized thoracic spine. Normal visualized ribs, clavicles, and shoulders. There is no demonstrated abnormality of the visualized soft tissue structures of the upper abdomen. RAD/Chest 1 View (Portable) IMPRESSION: No active disease. Cardiomegaly. Electronically Signed: Edil Painter MD at 8:19 EST Tel , Service support ,
[2021-01-26] MEDS: Morphine 2 MG/ML Syringe IV (06:59)
[2021-01-26 07:17] LABS: Anion Gap 5 (5-15); BUN 31 mg/dL (7-18); BUN/Creat Ratio 27.9 RATIO (10-20); Calcium,Total 8.5 mg/dL (8.5-10.1); Chloride 105 mmol/L (98-107); Creatinine, Serum 1.11 mg/dL (0.70-1.30); EST Glomerular Filtration Rate 69 mL/min (>60); Est Glom Filt Rate - Afr Amer 84 mL/min (>60); Estimated Creatinine Clearance 63.03 ml/min; Glucose 272 mg/dL (74-106); Magnesium 1.7 mg/dL (1.6-2.6); Potassium 4.2 mmol/L (3.5-5.1); Sodium Level 141 mmol/L (136-145)
[2021-01-26 07:22] LABS: Lactic Acid 1.2 mmol/L (0.4-1.9)
[2021-01-26 07:41] LABS: Bedside Glucose 299 mg/dL (70-110)
[2021-01-26] MEDS: Folic Acid 1 MG Tablet PO (07:42)
[2021-01-26] MEDS: Aspirin 325 MG Tablet PO (07:43)
--- NOTE | 2021-01-26 07:45 | PCM.PN.HOSP ---
Patient Problems: Active and Suspected Problems (Last Reviewed 01/24/21 @ 16:[address] Luanne Rojas DO) Closed right hip fracture (Acute) LIO (acute kidney injury) (Acute) Reason for Visit: Right nondisplaced intertrochanteric hip fracture Subjective: Patient underwent right hip cephalomedullary nailing on 01/25/[address] Crane. Patient did develop a low-grade fever as part of evaluation chest x-ray and urinalysis ordered Objective: GENERAL:. Delirious HEENT: Atraumatic; EYES; Anicteric, Normal Conjunctiva NECK; supple, normal thyroid, RESPIRATORY: Diminished to auscultation CARDIOVASCULAR: Regular S1 S2, GI: soft, normoactive bowel sounds, : No Renal angle tenderness; EXTREMITIES: No edema, no clubbing, MUSCULOSKELETAL: no muscle waisting NEURO: Awake; no lateralizing signs. SKIN: No Rash PSYCH; Flat affect Vitals/I&O's: Vital Signs Temp Pulse Resp BP Pulse Ox 98.7 F 110 H 18 144/60 H 94 01/26/21 05:07 01/26/21 05:07 01/26/21 05:07 01/26/21 05:07 01/26/21 05:07 Oxygen Flow Rate (L/min) 4 Oxygen Delivery Method Nasal Cannula Weight: 132.04 kg Body Mass Index (BMI) 41.6 Finger Stick Blood Glucose 173 Intake and Output for Last 24 Hours 01/24/21 01/25/21 01/26/21 23:59 23:59 23:59 Intake Total 750 / 750 2340 / 2340 50 / 50 Output Total 500 / 500 1974 400 / 400 Balance 250 / 250 365 / 365 -350 / -350 Microbiology Past 72 Hours 01/24/21 15:42 Mucosa - Nose SARS-CoV-2 Antigen (Rapid) - Final Laboratory Results 01/25/21 05:30: Vitamin D 25-Hydroxy 8.5 01/25/21 05:30: Hemoglobin A1c 8.2 H 01/25/21 08:07: POC Glucose 265 H 01/25/21 11:59: POC Glucose 205 H 01/25/21 15:47: POC Glucose 173 H 01/25/21 17:34: POC Glucose 182 H 01/25/21 21:51: POC Glucose 204 H 01/26/21 06:20: WBC 9.4, RBC 3.28 L, Hgb 9.3 L, Hct 31.0 L, MCV 94.5 H, MCH 28.4, MCHC 30.0 L, RDW Std Deviation 52.8 H, RDW Coeff of Lc 15.0 H, Plt Count 122 L, MPV 10.9 01/26/21 06:20: Sodium 141, Potassium 4.2, Chloride 105, Carbon Dioxide 31.0, Anion Gap 5, BUN 31 H, Creatinine 1.11, Estim Creat Clear Calc 63.03, Est GFR (MDRD) Af Amer 84, Est GFR (MDRD) Non-Af 69, BUN/Creatinine Ratio 27.9 H, Glucose 272 H, Calcium 8.5, Magnesium 1.7 01/26/21 06:20: Lactic Acid 1.2 01/26/21 07:35: POC Glucose 299 H Current Medications Acetaminophen (Acetaminophen 325 Mg Tablet) 650 mg PO Q6H PRN PRN PRN Reason: Pain Score 1-10/Temp > 100.7 F Last Admin: 01/25/21 02:40 Dose: 650 mg Documented by: Acetaminophen (Acetaminophen 500 Mg Tablet) 1,000 mg PO Q8 [facility] Last Admin: 01/26/21 05:19 Dose: 1,000 mg Documented by: Al Hydroxide/Mg Hydroxide (Mag Hydrox/Al Hydrox/Simeth 30 Ml Udc) 30 ml PO Q6H PRN PRN PRN Reason: Gastric Burning Albuterol Sulfate (Albuterol 2.5 Mg/3 Ml Vial.Neb.) 2.5 mg INHALATION Q2H PRN PRN PRN Reason: Shortness of Breath/Wheezing Amlodipine Besylate (Amlodipine 10 Mg Tablet) 10 mg PO DAILY [facility] Last Admin: 01/25/21 09:23 Dose: 10 mg Documented by: Aspirin (Aspirin 325 Mg Tablet) 325 mg PO DAILY@0800 [facility] Last Admin: 01/26/21 07:43 Dose: 325 mg Documented by: Atenolol (Atenolol 25 Mg Tablet) 25 mg PO DAILY [facility] Last Admin: 01/25/21 09:22 Dose: 25 mg Documented by: Atorvastatin Calcium (Atorvastatin Calcium 80 Mg Tablet) 80 mg PO QHS [facility] Last Admin: 01/25/21 21:44 Dose: 80 mg Documented by: Buspirone HCl (Buspirone 5 Mg Tablet) 10 mg PO BID [facility] Last Admin: 01/25/21 21:45 Dose: 10 mg Documented by: Doxazosin Mesylate (Doxazosin 4 Mg Tablet) 4 mg PO QHS [facility] Last Admin: 01/25/21 21:44 Dose: 4 mg Documented by: Ezetimibe (Ezetimibe 10 Mg Tablet) 10 mg PO DAILY [facility] Last Admin: 01/25/21 09:27 Dose: Not Given Documented by: Enoxaparin Sodium (Enoxaparin 40 Mg/0.4 Ml Syringe) 40 mg SC DAILY [facility] Last Admin: 01/25/21 09:15 Dose: Not Given Documented by: Enteral Nutritional Formula (Ensure Surgery 237 Ml Liquid) 237 ml PO TIDCM [facility] Last Admin: 01/25/21 18:19 Dose: 237 ml Documented by: Ferrous Sulfate (Ferrous Sulfate 325 Mg Tablet) 325 mg PO BID@1200,1700 [facility] Last Admin: 01/25/21 18:16 Dose: 325 mg Documented by: Folic Acid (Folic Acid 1 Mg Tablet) 1 mg PO DAILYCM [facility] Last Admin: 01/26/21 07:42 Dose: 1 mg Documented by: Hydralazine HCl (Hydralazine 20 Mg/Ml Vial) 10 mg IV Q6H PRN PRN PRN Reason: SBP > 160 Last Admin: 01/26/21 01:28 Dose: 10 mg Documented by: Lactated Ringer's () 1,000 mls @ 75 mls/hr IV .[id number] [facility] Last Admin: 01/25/21 23:38 Dose: 75 mls/hr Documented by: Influenza Virus Vaccine Quadrival (Influenza Vaccine (6mos+)/Pf 0.5 Ml Syringe) 0.5 ml IM .ONCE ONE Stop: 01/26/21 10:01 Insulin Human Lispro (Insulin Lispro 100 Unit/Ml Insuln.Pen) 0 unit SC ACHS [facility]; Protocol Last Admin: 01/25/21 21:55 Dose: 2 units Documented by: Insulin Human Regular (Insulin U-500 Units/Ml Pen) 150 units SC BIDAC [facility] Last Admin: 01/25/21 17:48 Dose: Not Given Documented by: Melatonin (Melatonin 3 Mg Tablet) 3 mg PO QHS PRN PRN PRN Reason: INSOMNIA Morphine Sulfate (Morphine 2 Mg/Ml Syringe) 2 mg IV Q3H PRN PRN PRN Reason: Pain Score 6-10 Last Admin: 01/26/21 06:59 Dose: 2 mg Documented by: Nutritional Formula ([facility]utritional Supp[facility] (Román) [facility]) [facility] Last Admin: 01/26/21 07:44 Dose: 1 packet Documented by: Ondansetron HCl (Ondansetron 4 Mg/2 Ml Vial) 4 mg IV Q8H PRN PRN PRN Reason: NAUSEA/VOMITING Oxycodone HCl (Oxycodone 5 Mg Tablet) 5 mg PO Q4H PRN PRN PRN Reason: Pain Score 4-5 Last Admin: 01/25/21 02:40 Dose: 5 mg Documented by: Pantoprazole Sodium (Pantoprazole Sodium 40 Mg Tablet) 40 mg PO BID [facility] Last Admin: 01/25/21 21:44 Dose: 40 mg Documented by: Polyethylene Glycol (Polyethylene Glycol 3350 17 Gm Packet) 17 gm PO DAILY [facility] Last Admin: 01/25/21 09:16 Dose: Not Given Documented by: Pregabalin (Pregabalin 50 Mg Capsule) 200 mg PO BID [facility] Last Admin: 01/25/21 21:44 Dose: 200 mg Documented by: Pyridoxine HCl (Pyridoxine Hcl 100 Mg Tablet) 200 mg PO DAILY [facility] Last Admin: 01/25/21 09:27 Dose: Not Given Documented by: Senna/Docusate Sodium (Senna/Docusate Sodium 1 Tablet) 2 tablet PO BID PRN PRN PRN Reason: Constipation Venlafaxine HCl (Venlafaxine Xr 150 Mg Capsule) 150 mg PO DAILY [facility] Last Admin: 01/25/21 09:17 Dose: Not Given Documented by: STROKE Vital Signs/Narrative: Vital Signs Temp Pulse Resp BP Pulse Ox 01/26/21 05:07 98.7 F 110 H 18 144/60 H 94 Medical Necessity - Tobacco Use Smoking Status: Former smoker Tobacco Use: Cigarettes, Chew Assessment/Plan All Active Problems (Last Reviewed 01/24/21 @ 16:[address] Luanne Rojas DO) Closed right hip fracture (Acute) LIO (acute kidney injury) (Acute) Patient is a 70-year-old male presented following a mechanical fall imaging studies demonstrated right nondisplaced intertrochanteric hip fracture 1. Right nondisplaced intertrochanteric hip fracture ?Admitted to a regular nursing floor managed with immobilization pain management with consultation placed to orthopedic surgery Dr. Crane, with plans for patient to undergo surgical intervention on 01/25/2021. Patient perioperative risk assessment performed by admitting physician. -01/26/2021; Patient underwent right hip cephalomedullary nailing on 01/25/[address] Crane. 2. Acute renal insufficiency ?managed with IV fluids kidney function back to baseline 3. Diabetes mellitus type II -patient's oral hypoglycemics held. Placed on long acting insulin, Accu-Cheks a.c. and at bedtime and covered with sliding scale insulin 4. Anemia - Secondary to chronic disorder monitoring H&H and transfuse if patient becomes symptomatic or hemoglobin falls below 7 5. Hypertension - Blood pressure controlled, home medications continued with dose adjustment as needed 6. Dyslipidemia -Patient is on statin therapy, continued at home dose 7. GERD ?On PPI 8. BPH ?Patient is on prazosin at night 9. Depression with anxiety ?Patient is on Effexor as well as BuSpar 10. Obstructive sleep apnea ?Patient apparently noncompliant with CPAP therapy 11. Morbid obesity - With a BMI of 41 patient was counseled on weight reduction 12. Acute encephalopathy ?Per nursing staff this became more obvious once patient's left. Patient may have underlying cognitive disorder which has been exacerbated by pain as well as pain medications. There appears to be no obvious source of infection to account for his encephalopathy patient had acute renal insufficiency on admission which has since resolved 13. DVT prophylaxis ?Lovenox 14. Low-grade fever ?Patient currently being evaluated with a chest x-ray and urinalysis. Also did encourage the use of incentive spirometry for possible atelectasis Inpatient E&M: [id number] [facility] L[facility]
[2021-01-26] MEDS: Insulin Lispro 100 UNIT/ML INSULN.PEN SC ×3 (07:49→17:30)
[2021-01-26 09:04] LABS: Bacteria 0 SEEN /hpf (None Seen); Mucous, Urine 0 SEEN /hpf (<or=2+)
[2021-01-26] MEDS: Insulin U-500 UNITS/ML PEN 150 UNITS SC (09:04)
[2021-01-26 09:06] LABS: Red Blood Cells-Urine 0 SEEN /hpf (0-5); Squamous Epithelial Cells - UA 0 SEEN /hpf (0-5); White Blood Cells 0 SEEN /hpf (0-5)
[2021-01-26 09:07] LABS: Color, Urine Yellow (Yellow); Glucose, Dipstick 1000 mg/dl (Normal); Ketone-Dipstick 50 mg/dl (Negative); Leukocyte Esterase-Dipstick Negative /ul (Negative); Nitrite-Dipstick Negative (Negative); Occult Blood-Urine 10 /ul (Negative); Protein-Dipstick 100 mg/dl (Negative); Specific Gravity, Urine 1.025 (1.002-1.030); Urine Bilirubin Dipstick Negative (Negative); Urine Clarity Clear (Clear); Urine Urobilinogen Normal (Normal)
[2021-01-26] MEDS: Pantoprazole Sodium 40 MG Tablet PO ×2 (09:09→20:27)
[2021-01-26] MEDS: Ensure Surgery 237 ML LIQUID PO ×2 (09:09→11:23)
[2021-01-26] MEDS: Pregabalin 50 MG Capsule 200 MG PO ×2 (09:09→20:27)
[2021-01-26] MEDS: Pyridoxine HCl 100 MG Tablet 200 MG PO (09:09)
[2021-01-26] MEDS: Atenolol 25 MG Tablet PO (09:10)
[2021-01-26] MEDS: Polyethylene Glycol 3350 17 GM PACKET PO (09:10)
[2021-01-26] MEDS: Venlafaxine XR 150 MG Capsule PO (09:10)
[2021-01-26] MEDS: Ezetimibe 10 MG Tablet PO (09:10)
[2021-01-26] MEDS: amLODIPine 10 MG Tablet PO (09:10)
[2021-01-26] MEDS: busPIRone 5 MG Tablet 10 MG PO ×2 (09:10→20:28)
[2021-01-26] MEDS: Enoxaparin 40 MG/0.4 ML Syringe SC (09:11)
[2021-01-26] MEDS: Ferrous Sulfate 325 MG Tablet PO ×2 (11:23→17:32)
[2021-01-26] MEDS: Lactated Ringers 1,000 ML 75 ML IV (11:48)
[2021-01-26] MEDS: oxyCODONE 5 MG Tablet PO ×2 (11:53→20:30)
[2021-01-26 11:56] LABS: Bedside Glucose 341 mg/dL (70-110)
--- NOTE | 2021-01-26 12:00 | CASEMGMT ---
Social Work Note LAITH received call from pt's Maria De Jesus. Maria De Jesus asked if the [facility] has been [facility] regarding pt being at [facility]. LAITH informed Maria De Jesus that this worker is not sure, will check with RN FABIAN. Maria De Jesus states pt is [facility] connected 100% and they will pay for everything. Maria De Jesus states she is aware pt will likely need SNF. LAITH informed Maria De Jesus that pt is currently at [facility] under pt's [employer] and pt can admit to SNF under [employer]. Maria De Jesus asked about pt going to SNF under [facility]. LAITH informed Maria De Jesus that pt would have fewer options for SNF under [facility] as only a few SNF have [facility] contracts. LAITH updated Maria De Jesus that pt could go to SNF under [employer] and if they approve a SNF, [employer] would pay for SNF. Maria De Jesus agreeable to pt going to SNF under [employer]. LAITH updated RN FABIAN that pt apparently has [facility] and asked RN CM to follow up with [facility]. SW to follow for SNF placement. Plan: SNF pending acceptance and pre-cert Adwoa Chamberlain INFORMATION SYSTEMS PROJECT MANAGER, EAR FLAP BINDER
--- NOTE | 2021-01-26 12:40 | CASEMGMT ---
Social Work SW entered pt room and introduced self and role of SW. Pt sitting up in chair with eyes closed. Pt answers SW questions appropriatly but pt never opens eyes and appears drowsy. SW spoke with pt regarding need for short term SNF prior to return home. Pt states he wants to talk to his about this. SW provided pt with list of SNF providers including quality and resource use data and consistent with the patient's preferred geographic region, medical needs and insurance network. SW inquired if SW could call and provide the same information to her and pt and can converse. Pt agreeable. Phone call to pt and SNF information provided. is understanding of need for SNF and preferred provider is [facility]. to be in later today after medical appointment and speak with pt about choices. She will followup with SW once here and has spoke with pt. Pt is agreeable to referral being sent to [facility] and if pt changes his mind a new referral can be made to facility of pt choice if different from . Phone call to Ale at [facility] and they do have beds available. Referral faxed and will await determination. SW to followup with pt and to confirm SNF choice. JORDI Umana
--- NOTE | 2021-01-26 13:04 | CHAPLAIN ---
Type of Pastoral Visit _x__ Initial Visit ___ Follow-up Visit ___ On-call Visit ___ General Patient Visit ___ Spiritual Assessment ___ Family Conference ___ Bereavement ___ Rapid Response ___ Code Blue ___ Other (describe below) Pastoral Care Referral From _x__ Patient ___ Family ___ Nurse ___ Physician ___ Water Treatment Plant Engineer ___ Dinkey Motor Operator ___ Other (describe below) Sacrament/Intervention _x__ Active listening ___ Anointing ___ Cheondoism ___ Bereavement ___ Communion ___ Caroline exploration ___ _x__ Life review _x__ Prayer ___ Reconciliation ___ Sacrament of Sick _x__ Supportive presence ___ Wedding ___ Other (describe below) Pastoral Comments 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
--- NOTE | 2021-01-26 15:44 | PN.ORTHO_ITS ---
Patient Problems: Active and Suspected Problems (Last Reviewed 01/24/21 @ 16:[address] Luanne Rojas DO) Closed right hip fracture (Acute) LIO (acute kidney injury) (Acute) Subjective: Patient is resting in bed. Remains on oxygen. Somewhat short of breath. Had fevers overnight. Work-up for fever. Reports pain is improved in his hip from yesterday. Objective: Postop x-rays show stable well fixed intertrochanteric hip fracture on the right with cephalomedullary nail. - Physical Exam Vitals/I&O's: Vital Signs Temp Pulse Resp BP Pulse Ox 101.5 F H 91 22 H 172/78 H 96 01/26/21 13:00 01/26/21 13:00 01/26/21 13:00 01/26/21 13:00 01/26/21 13:00 Oxygen Flow Rate (L/min) 4 Oxygen Delivery Method Nasal Cannula Weight: 291 lb 1.574 oz Body Mass Index (BMI) 41.6 Finger Stick Blood Glucose 173 Intake and Output for Last 24 Hours 01/24/21 01/25/21 01/26/21 23:59 23:59 23:59 Intake Total 750 / 750 2340 / 2340 1762.5 / 1762.5 Output Total 500 / 500 1974 / 1974 950 / 950 Balance 250 / 250 365 / 365 812.5 / 812.5 General: Cooperative Extremities: - - Right lower extremity: Dressing is clean dry and intact Sensations intact to light touch saphenous, sural, superficial peroneal, deep peroneal, and tibial distributions Motors intact EHL, DF, PF calves are soft and supple Microbiology Past 72 Hours 01/24/21 15:42 Mucosa - Nose SARS-CoV-2 Antigen (Rapid) - Final Laboratory Results 01/25/21 15:47: POC Glucose 173 H 01/25/21 17:34: POC Glucose 182 H 01/25/21 21:51: POC Glucose 204 H 01/26/21 06:20: WBC 9.4, RBC 3.28 L, Hgb 9.3 L, Hct 31.0 L, MCV 94.5 H, MCH 28.4, MCHC 30.0 L, RDW Std Deviation 52.8 H, RDW Coeff of Lc 15.0 H, Plt Count 122 L, MPV 10.9 01/26/21 06:20: Sodium 141, Potassium 4.2, Chloride 105, Carbon Dioxide 31.0, Anion Gap 5, BUN 31 H, Creatinine 1.11, Estim Creat Clear Calc 63.03, Est GFR (MDRD) Af Amer 84, Est GFR (MDRD) Non-Af 69, BUN/Creatinine Ratio 27.9 H, Glucose 272 H, Calcium 8.5, Magnesium 1.7 01/26/21 06:20: Lactic Acid 1.2 01/26/21 07:35: POC Glucose 299 H 01/26/21 08:50: Urine Color Yellow, Urine Clarity Clear, Urine pH 5.0, Ur Specific [place] 1.025, Urine Protein 100 H, Urine Glucose (UA) 1000 H, Urine Ketones 50 H, Urine Occult Blood 10 H, Urine Nitrite Negative, Urine Bilirubin Negative, Urine Urobilinogen Normal, Ur Leukocyte Esterase Negative, Urine RBC 0 SEEN, Urine WBC 0 SEEN, Ur Squamous Epith Cells 0 SEEN, Urine Bacteria 0 SEEN, Urine Mucus 0 SEEN 01/26/21 11:26: POC Glucose 341 H Current Medications Acetaminophen (Acetaminophen 325 Mg Tablet) 650 mg PO Q6H PRN PRN PRN Reason: Pain Score 1-10/Temp > 100.7 F Last Admin: 01/25/21 02:40 Dose: 650 mg Documented by: Acetaminophen (Acetaminophen 500 Mg Tablet) 1,000 mg PO Q8 [facility] Last Admin: 01/26/21 14:54 Dose: 1,000 mg Documented by: Al Hydroxide/Mg Hydroxide (Mag Hydrox/Al Hydrox/Simeth 30 Ml Udc) 30 ml PO Q6H PRN PRN PRN Reason: Gastric Burning Albuterol Sulfate (Albuterol 2.5 Mg/3 Ml Vial.Neb.) 2.5 mg INHALATION Q2H PRN PRN PRN Reason: Shortness of Breath/Wheezing Amlodipine Besylate (Amlodipine 10 Mg Tablet) 10 mg PO DAILY [facility] Last Admin: 01/26/21 09:10 Dose: 10 mg Documented by: Aspirin (Aspirin 325 Mg Tablet) 325 mg PO DAILY@0800 [facility] Last Admin: 01/26/21 07:43 Dose: 325 mg Documented by: Atenolol (Atenolol 25 Mg Tablet) 25 mg PO DAILY [facility] Last Admin: 01/26/21 09:10 Dose: 25 mg Documented by: Atorvastatin Calcium (Atorvastatin Calcium 80 Mg Tablet) 80 mg PO QHS [facility] Last Admin: 01/25/21 21:44 Dose: 80 mg Documented by: Buspirone HCl (Buspirone 5 Mg Tablet) 10 mg PO BID [facility] Last Admin: 01/26/21 09:10 Dose: 10 mg Documented by: Doxazosin Mesylate (Doxazosin 4 Mg Tablet) 4 mg PO QHS [facility] Last Admin: 01/25/21 21:44 Dose: 4 mg Documented by: Ezetimibe (Ezetimibe 10 Mg Tablet) 10 mg PO DAILY [facility] Last Admin: 01/26/21 09:10 Dose: 10 mg Documented by: Enoxaparin Sodium (Enoxaparin 40 Mg/0.4 Ml Syringe) 40 mg SC DAILY [facility] Last Admin: 01/26/21 09:11 Dose: 40 mg Documented by: Ferrous Sulfate (Ferrous Sulfate 325 Mg Tablet) 325 mg PO BID@1200,1700 [facility] Last Admin: 01/26/21 11:23 Dose: 325 mg Documented by: Folic Acid ([facility] Acid 1 Mg Tablet) [facility] Last Admin: 01/26/21 07:42 Dose: 1 mg Documented by: Hydralazine HCl (Hydralazine 20 Mg/Ml Vial) 10 mg IV Q6H PRN PRN PRN Reason: SBP > 160 Last Admin: 01/26/21 01:28 Dose: 10 mg Documented by: Lactated Ringer's () 1,000 mls @ 75 mls/hr IV .[id number] [facility] Last Admin: 01/26/21 11:48 Dose: 75 mls/hr Documented by: Insulin Human Lispro (Insulin Lispro 100 Unit/Ml Insuln.Pen) 0 unit SC ACHS [facility]; Protocol Last Admin: 01/26/21 11:32 Dose: 5 units Documented by: Insulin Human Regular (Insulin U-500 Units/Ml Pen) 150 units SC BIDAC [facility] Last Admin: 01/26/21 09:04 Dose: 150 units Documented by: Melatonin (Melatonin 3 Mg Tablet) 3 mg PO QHS PRN PRN PRN Reason: INSOMNIA Morphine Sulfate (Morphine 2 Mg/Ml Syringe) 2 mg IV Q3H PRN PRN PRN Reason: Pain Score 6-10 Last Admin: 01/26/21 06:59 Dose: 2 mg Documented by: Ondansetron HCl (Ondansetron 4 Mg/2 Ml Vial) 4 mg IV Q8H PRN PRN PRN Reason: NAUSEA/VOMITING Oxycodone HCl (Oxycodone 5 Mg Tablet) 5 mg PO Q4H PRN PRN PRN Reason: Pain Score 4-5 Last Admin: 01/26/21 11:53 Dose: 5 mg Documented by: Pantoprazole Sodium (Pantoprazole Sodium 40 Mg Tablet) 40 mg PO BID [facility] Last Admin: 01/26/21 09:09 Dose: 40 mg Documented by: Polyethylene Glycol (Polyethylene Glycol 3350 17 Gm Packet) 17 gm PO DAILY [facility] Last Admin: 01/26/21 09:10 Dose: 17 gm Documented by: Pregabalin (Pregabalin 50 Mg Capsule) 200 mg PO BID [facility] Last Admin: 01/26/21 09:09 Dose: 200 mg Documented by: Pyridoxine HCl (Pyridoxine Hcl 100 Mg Tablet) 200 mg PO DAILY [facility] Last Admin: 01/26/21 09:09 Dose: 200 mg Documented by: Senna/Docusate Sodium (Senna/Docusate Sodium 1 Tablet) 2 tablet PO BID PRN PRN PRN Reason: Constipation Venlafaxine HCl (Venlafaxine Xr 150 Mg Capsule) 150 mg PO DAILY [facility] Last Admin: 01/26/21 09:10 Dose: 150 mg Documented by: Medical Necessity - Tobacco Use Smoking Status: Former smoker Tobacco Use: Cigarettes, Chew Assessment/Plan All Active Problems (Last Reviewed 01/24/21 @ 16:[address] Luanne Rojas, DO) Closed right hip fracture (Acute) LIO (acute kidney injury) (Acute) Postop day 1 right cephalomedullary nail 1. Pain control: Per primary service would limit narcotics based on patient's respiratory status. 2. DVT prophylaxis: Lovenox secondary to renal failure and limited mobility. 3. Therapy: Weightbearing as tolerated. Therapy as tolerated. Therapy should be continued upon discharge for mobility and strengthening. 4. Dressing: Remove dressing on postop day 5 okay to leave open to air if no drainage 5. Anemia: Managed by primary service due to acute on chronic anemia secondary to fracture and intraoperative blood loss 6. Disposition: Per primary service. Patient's hip is stable. Recommend least 2 weeks of Lovenox with transition to aspirin should patient's mobility improve at 2 weeks postop. Weightbearing as tolerated. Dressing removed in 5 days. Syd removed 2 weeks postop. Orthopedic follow-up in 2 weeks for x-rays and wound check. [facility] Office:
--- NOTE | 2021-01-26 15:53 | NURSING ---
Dr Crane in to see pt. concerned pt is declining. Asked that I notify hospitalist. Spoke to Dr Sykes. New orders received.
--- NOTE | 2021-01-26 16:08 | NURSING ---
Dr Sykes in to see pt. Order to transfer pt to ICU. Charge nurse made aware.
--- NOTE | 2021-01-26 16:26 | NURSING ---
report called to Clarissa in ICU
[2021-01-26 16:31] LABS: Base Excess 5 mmol/L (-2 to +2); Bicarbonate 29.9 mmol/L (22-26); Blood Gas Specimen Type ART; O2 Delivery Device Cannula; PO2 85 mmHG (75-100); SITE L Radial; SO2 96 % (95-99); Total Carbon Dioxide 31 mmol/L; pCO2 49.1 mmHg (35-45); pH 7.39 (7.35-7.45)
[2021-01-26 17:55] LABS: Bedside Glucose 164 mg/dL (70-110)
--- NOTE | 2021-01-26 17:56 | NURSING ---
late entry - 1710 - pt transferred to ICU 1
[2021-01-26] MEDS: Doxazosin 4 MG Tablet PO (20:27)
[2021-01-26] MEDS: Atorvastatin Calcium 80 MG Tablet PO (20:27)
[2021-01-26 22:25] LABS: Bedside Glucose 98 mg/dL (70-110)
[2021-01-27] VITALS (14 sets, daily range): BP systolic 135–161; BP diastolic 49–73; PULSE 86–107; RESP 16–24; TEMP 36.6–38.3; O2SAT 91–98
[2021-01-27] MEDS: Lactated Ringers 1,000 ML 75 ML IV ×3 (00:06→15:58)
[2021-01-27 05:06] LABS: Hematocrit 27.4 % (40-54); Hemoglobin 8.5 g/dL (13.0-16.5); Mean Corpuscular Hgb 28.8 pg (27.0-32.0); Mean Corpuscular Volume 92.9 fL (80-94); Mean Platelet Vol. 10.1 fl (6.2-12.0); Platelet Count 115 K/mm3 (150-450); RBC Distribution Width CV 14.8 % (11.6-14.6); RBC Distribution Width SD 50.8 fl (35.1-43.9); Red Blood Count 2.95 M/mm3 (4.6-6.2); White Blood Count 8.5 K/mm3 (4.4-11.0)
[2021-01-27 05:20] LABS: Anion Gap 6 (5-15); BUN 30 mg/dL (7-18); BUN/Creat Ratio 36.2 RATIO (10-20); Calcium,Total 8.3 mg/dL (8.5-10.1); Chloride 103 mmol/L (98-107); Creatinine, Serum 0.83 mg/dL (0.70-1.30); EST Glomerular Filtration Rate 97 mL/min (>60); Est Glom Filt Rate - Afr Amer 118 mL/min (>60); Estimated Creatinine Clearance 84.29 ml/min; Glucose 143 mg/dL (74-106); Sodium Level 139 mmol/L (136-145)
[2021-01-27] MEDS: Acetaminophen 500 MG Tablet 1000 MG PO ×3 (05:41→22:23)
--- NOTE | 2021-01-27 07:19 | CT_ITS ---
STUDY: CTA CHEST REASON FOR EXAM: Male, 70 years old. dimer RADIATION DOSAGE (If Supplied By Facility): CTDIvol = ( 15.04 ) mGy, DLP = ( 491.86 ) mGycm TECHNIQUE: The examination was performed with the intravenous administration of IV 100mL Isovue-370. Post-processing of the angiographic images was performed, with multiplanar reformation and 3D reconstruction. Individualized dose optimization techniques were used for this CT. COMPARISON: None. FINDINGS: Normal enhancement of the main pulmonary artery and right and left pulmonary arteries. Normal enhancement of the bilateral peripheral pulmonary arteries. There is no demonstrated pulmonary embolism. Normal thoracic aorta and visualized great vessels. There is no demonstrated aortic dissection. There is a small pericardial effusion. Normal mediastinum. Normal hilar regions. Normal visualized trachea and bronchi. The lungs are well expanded. Some dependent bibasilar atelectasis. No noncalcified nodule or mass Normal pleura. Normal chest wall structures. Normal osseous structures. Normal visualized upper abdomen. CT/CTA Chest W/WO Contrast IMPRESSION: Normal CTA chest examination, without a demonstrated pulmonary embolism or arterial dissection. Electronically Signed: Edil Painter MD at 8:52 EST Tel , Service support ,
--- NOTE | 2021-01-27 07:19 | VDLE_ITS ---
Reason For Study: elevated D-Dimer RIGHT LEFT GSV is normal. GSV is normal. CFV is compressible, spontaneous, phasic, CFV is compressible, spontaneous, phasic, competent and demonstrates normal competent, and demonstrates normal augmentation. augmentation. FV is compressible, spontaneous, phasic, FV is compressible, spontaneous, phasic, competent and demonstrates normal competent and demonstrates normal augmentation. augmentation. POP V is compressible, spontaneous, phasic, POP V is compressible, spontaneous, phasic, competent and demonstrates normal competent and demonstrates normal augmentation. augmentation. T/P Trunk is compressible. T/P Trunk is compressible. PTV is compressible. PTV is compressible. RT PerV is compressible. LT PerV is compressible. Procedure This is a venous duplex using B-mode, color flow and spectral Doppler. Exam performed portable in patient room. The exam was diagnostic. A preliminary report was called and/or faxed to Reyes RN. Interpretation Summary Deep veins of the lower extremities are bilaterally patent and compressible segmentally. There is no evidence of deep vein thrombosis on either side. Valvular competence appears intact within the proximal deep venous systems bilaterally. The great saphenous veins appear bilaterally patent and compressible segmentally. Ordering Physician: Drew Sykes Performed By: Anthony Severino RVT
--- NOTE | 2021-01-27 07:24 | PN_ITS ---
Patient Problems: Active and Suspected Problems (Last Reviewed 01/24/21 @ 16:[address] Luanne Rojas DO) Closed right hip fracture (Acute) LIO (acute kidney injury) (Acute) Reason for Visit: Acute encephalopathy Fever Subjective: Patient was transferred to the intensive care unit last evening after he was found to be significantly lethargic with labored breathing and fever. Patient monitored overnight. Patient appears to be back to his baseline. Fever however persist work-up so far remained negative to date. Objective: GENERAL:. Delirious HEENT: Atraumatic; EYES; Anicteric, Normal Conjunctiva NECK; supple, normal thyroid, RESPIRATORY: Diminished to auscultation CARDIOVASCULAR: Regular S1 S2, GI: soft, normoactive bowel sounds, : No Renal angle tenderness; EXTREMITIES: No edema, no clubbing, MUSCULOSKELETAL: no muscle waisting NEURO: Awake; no lateralizing signs. SKIN: No Rash PSYCH; Flat affect Vitals/I&O's: Vital Signs Temp Pulse Resp BP Pulse Ox 101.0 F H 107 H 21 H 154/67 H 93 01/27/21 06:00 01/27/21 06:00 01/27/21 06:00 01/27/21 06:00 01/27/21 06:00 Oxygen Flow Rate (L/min) 4 Oxygen Delivery Method Nasal Cannula Weight: 135.3 kg Body Mass Index (BMI) 41.6 Finger Stick Blood Glucose 173 Intake and Output for Last 24 Hours 01/25/21 01/26/21 01/27/21 23:59 23:59 23:59 Intake Total 2340 / 2340 2936.25 / 2936.25 182.50 / 182.50 Output Total 1974 / 1974 1200 / 1200 400 / 400 Balance 365 / 365 1736.25 / 1736.25 -217.50 / -217.50 Microbiology Past 72 Hours 01/24/21 15:42 Mucosa - Nose SARS-CoV-2 Antigen (Rapid) - Final Laboratory Results 01/26/21 07:35: POC Glucose 299 H 01/26/21 08:50: Urine Color Yellow, Urine Clarity Clear, Urine pH 5.0, Ur Specific [place] 1.025, Urine Protein 100 H, Urine Glucose (UA) 1000 H, Urine Ketones 50 H, Urine Occult Blood 10 H, Urine Nitrite Negative, Urine Bilirubin Negative, Urine Urobilinogen Normal, Ur Leukocyte Esterase Negative, Urine RBC 0 SEEN, Urine WBC 0 SEEN, Ur Squamous Epith Cells 0 SEEN, Urine Bacteria 0 SEEN, Urine Mucus 0 SEEN 01/26/21 11:26: POC Glucose 341 H 01/26/21 16:00: COVID-19 (AMOL) Not Detected 01/26/21 16:27: Specimen Type ART, Sample Site L Radial, pH 7.39, Bicarbonate Actual 29.9 H, Total CO2 31, Base Excess 5 H, O2 Saturation 96, ABG pCO2 49.1 H, ABG pO2 85, O2 Delivery Device Cannula, Liter Flow 4.0 01/26/21 17:24: POC Glucose 164 H 01/26/21 22:03: POC Glucose 98 01/27/21 05:00: WBC 8.5, RBC 2.95 L, Hgb 8.5 L, Hct 27.4 L, MCV 92.9, MCH 28.8, MCHC 31.0 L, RDW Std Deviation 50.8 H, RDW Coeff of Lc 14.8 H, Plt Count 115 L, MPV 10.1 01/27/21 05:00: Sodium 139, Potassium 4.0, Chloride 103, Carbon Dioxide 30.0, Anion Gap 6, BUN 30 H, Creatinine 0.83, Estim Creat Clear Calc 84.29, Est GFR (MDRD) Af Amer 118, Est GFR (MDRD) Non-Af 97, BUN/Creatinine Ratio 36.2 H, Glucose 143 H, Calcium 8.3 L Current Medications Acetaminophen (Acetaminophen 325 Mg Tablet) 650 mg PO Q6H PRN PRN PRN Reason: Pain Score 1-10/Temp > 100.7 F Last Admin: 01/25/21 02:40 Dose: 650 mg Documented by: Acetaminophen (Acetaminophen 500 Mg Tablet) 1,000 mg PO Q8 [facility] Last Admin: 01/27/21 05:41 Dose: 1,000 mg Documented by: Al Hydroxide/Mg Hydroxide (Mag Hydrox/Al Hydrox/Simeth 30 Ml Udc) 30 ml PO Q6H PRN PRN PRN Reason: Gastric Burning Albuterol Sulfate (Albuterol 2.5 Mg/3 Ml Vial.Neb.) 2.5 mg INHALATION Q2H PRN PRN PRN Reason: Shortness of Breath/Wheezing Amlodipine Besylate (Amlodipine 10 Mg Tablet) 10 mg PO DAILY [facility] Last Admin: 01/26/21 09:10 Dose: 10 mg Documented by: Aspirin (Aspirin 325 Mg Tablet) 325 mg PO DAILY@0800 [facility] Last Admin: 01/26/21 07:43 Dose: 325 mg Documented by: Atenolol (Atenolol 25 Mg Tablet) 25 mg PO DAILY [facility] Last Admin: 01/26/21 09:10 Dose: 25 mg Documented by: Atorvastatin Calcium (Atorvastatin Calcium 80 Mg Tablet) 80 mg PO QHS [facility] Last Admin: 01/26/21 20:27 Dose: 80 mg Documented by: Buspirone HCl (Buspirone 5 Mg Tablet) 10 mg PO BID [facility] Last Admin: 01/26/21 20:28 Dose: 10 mg Documented by: Doxazosin Mesylate (Doxazosin 4 Mg Tablet) 4 mg PO QHS [facility] Last Admin: 01/26/21 20:27 Dose: 4 mg Documented by: Ezetimibe (Ezetimibe 10 Mg Tablet) 10 mg PO DAILY [facility] Last Admin: 01/26/21 09:10 Dose: 10 mg Documented by: Enoxaparin Sodium (Enoxaparin 40 Mg/0.4 Ml Syringe) 40 mg SC DAILY [facility] Last Admin: 01/26/21 09:11 Dose: 40 mg Documented by: Ferrous Sulfate (Ferrous Sulfate 325 Mg Tablet) 325 mg PO BID@1200,1700 [facility] Last Admin: 01/26/21 17:32 Dose: 325 mg Documented by: Folic Acid (Folic Acid 1 Mg Tablet) 1 mg PO DAILYCM [facility] Last Admin: 01/26/21 07:42 Dose: 1 mg Documented by: Hydralazine HCl (Hydralazine 20 Mg/Ml Vial) 10 mg IV Q6H PRN PRN PRN Reason: SBP > 160 Last Admin: 01/26/21 16:32 Dose: 10 mg Documented by: Lactated Ringer's () 1,000 mls @ 75 mls/hr IV .[id number] [facility] Last Admin: 01/27/21 01:53 Dose: 75 mls/hr Documented by: Insulin Human Lispro (Insulin Lispro 100 Unit/Ml Insuln.Pen) 0 unit SC ACHS [facility]; Protocol Last Admin: 01/26/21 22:22 Dose: Not Given Documented by: Insulin Human Regular (Insulin U-500 Units/Ml Pen) 150 units SC BIDAC [facility] Last Admin: 01/26/21 17:46 Dose: Not Given Documented by: Melatonin (Melatonin 3 Mg Tablet) 3 mg PO QHS PRN PRN PRN Reason: INSOMNIA Morphine Sulfate (Morphine 2 Mg/Ml Syringe) 2 mg IV Q3H PRN PRN PRN Reason: Pain Score 6-10 Last Admin: 01/26/21 06:59 Dose: 2 mg Documented by: Ondansetron HCl (Ondansetron 4 Mg/2 Ml Vial) 4 mg IV Q8H PRN PRN PRN Reason: NAUSEA/VOMITING Oxycodone HCl (Oxycodone 5 Mg Tablet) 5 mg PO Q4H PRN PRN PRN Reason: Pain Score 4-5 Last Admin: 01/26/21 20:30 Dose: 5 mg Documented by: Pantoprazole Sodium (Pantoprazole Sodium 40 Mg Tablet) 40 mg PO BID [facility] Last Admin: 01/26/21 20:27 Dose: 40 mg Documented by: Polyethylene Glycol (Polyethylene Glycol 3350 17 Gm Packet) 17 gm PO DAILY [facility] Last Admin: 01/26/21 09:10 Dose: 17 gm Documented by: Pregabalin (Pregabalin 50 Mg Capsule) 200 mg PO BID [facility] Last Admin: 01/26/21 20:27 Dose: 200 mg Documented by: Pyridoxine HCl (Pyridoxine Hcl 100 Mg Tablet) 200 mg PO DAILY [facility] Last Admin: 01/26/21 09:09 Dose: 200 mg Documented by: Senna/Docusate Sodium (Senna/Docusate Sodium 1 Tablet) 2 tablet PO BID PRN PRN PRN Reason: Constipation Venlafaxine HCl (Venlafaxine Xr 150 Mg Capsule) 150 mg PO DAILY [facility] Last Admin: 01/26/21 09:10 Dose: 150 mg Documented by: STROKE Vital Signs/Narrative: Vital Signs Temp Pulse Resp BP Pulse Ox 01/27/21 06:00 101.0 F H 107 H 21 H 154/67 H 93 01/27/21 05:00 103 H 23 H 161/69 H 91 01/27/21 04:16 103 H 01/27/21 04:00 100.8 F H 102 H 23 H 143/62 H 94 Medical Necessity - Tobacco Use Smoking Status: Former smoker Tobacco Use: Cigarettes, Chew Assessment/Plan All Active Problems (Last Reviewed 01/24/21 @ 16:[address] Luanne Rojas, DO) Closed right hip fracture (Acute) LIO (acute kidney injury) (Acute) Patient is a 70-year-old male presented following a mechanical fall imaging studies demonstrated right nondisplaced intertrochanteric hip fracture 1. Right nondisplaced intertrochanteric hip fracture ?Admitted to a regular nursing floor managed with immobilization pain management with consultation placed to orthopedic surgery Dr. Crane, with plans for patient to undergo surgical intervention on 01/25/2021. Patient perioperative risk assessment performed by admitting physician. -01/26/2021; Patient underwent right hip cephalomedullary nailing on 01/25/[address] Crane. 2. Acute renal insufficiency ?managed with IV fluids kidney function back to baseline 3. Diabetes mellitus type II -patient's oral hypoglycemics held. Placed on long acting insulin, Accu-Cheks a.c. and at bedtime and covered with sliding scale insulin 4. Anemia - Secondary to chronic disorder monitoring H&H and transfuse if patient becomes symptomatic or hemoglobin falls below 7 5. Hypertension - Blood pressure controlled, home medications continued with dose adjustment as needed 6. Dyslipidemia -Patient is on statin therapy, continued at home dose 7. GERD ?On PPI 8. BPH ?Patient is on prazosin at night 9. Depression with anxiety ?Patient is on Effexor as well as BuSpar 10. Obstructive sleep apnea ?Patient apparently noncompliant with CPAP therapy 11. Morbid obesity - With a BMI of 41 patient was counseled on weight reduction 12. Acute encephalopathy ?Per nursing staff this became more obvious once patient's left. Patient may have underlying cognitive disorder which has been exacerbated by pain as well as pain medications. There appears to be no obvious source of infection to account for his encephalopathy patient had acute renal insufficiency on admission which has since resolved 13. DVT prophylaxis ?Lovenox 14. Low-grade fever ?Patient currently being evaluated with a chest x-ray and urinalysis. Also did encourage the use of incentive spirometry for possible atelectasis -01/27/2021; patient was transferred to the intensive care unit the day prior after he was found with labored breathing as well as persistent fever. Repeat Covid 19 assay came back negative. Urine and blood cultures so far unremarkable. Patient underwent CT of the chest also negative today. Do suspect patient low-grade fever to be secondary to atelectasis incentive spirometry use encouraged. Inpatient E&M: 77228 Subs Hosp L2
[2021-01-27] MEDS: Aspirin 325 MG Tablet PO (09:08)
[2021-01-27] MEDS: Venlafaxine XR 150 MG Capsule PO (09:11)
[2021-01-27] MEDS: busPIRone 5 MG Tablet 10 MG PO ×2 (09:11→22:23)
[2021-01-27] MEDS: Folic Acid 1 MG Tablet PO (09:11)
[2021-01-27] MEDS: Enoxaparin 40 MG/0.4 ML Syringe SC (09:11)
[2021-01-27] MEDS: Pantoprazole Sodium 40 MG Tablet PO ×2 (09:12→22:23)
[2021-01-27] MEDS: Ezetimibe 10 MG Tablet PO (09:12)
[2021-01-27] MEDS: Pyridoxine HCl 100 MG Tablet 200 MG PO (09:12)
[2021-01-27] MEDS: Atenolol 25 MG Tablet PO (09:12)
[2021-01-27] MEDS: amLODIPine 10 MG Tablet PO (09:13)
[2021-01-27] MEDS: Polyethylene Glycol 3350 17 GM PACKET PO (09:13)
[2021-01-27] MEDS: Pregabalin 50 MG Capsule 200 MG PO ×2 (09:14→22:38)
--- NOTE | 2021-01-27 09:43 | CASEMGMT ---
Social Work SW spoke with [facility] who states they are able to accept pt. They are working on locating a pharmacy that carries correct syringes that pt needs. SW requested precert be started. SW met with pt to discuss discharge plan. Pt did not remember conversation yesterday. SW explained that pt preferred [facility] for short term rehab prior to return home and pt is agreeable to this discharge plan. Pt notified that [facility] can accept. Phone call to pt Celena and updated that [facility] can accept and will now wait on precert. She is agreeable. Clinical updates faxed to [facility]. Plan: [facility], pending precert. JORDI Umana
--- NOTE | 2021-01-27 10:39 | NURSING ---
report called to 3rd floor fore transfer, transferred with belongings per bed to room 308, family informed
[2021-01-27 11:40] LABS: Bedside Glucose 321 mg/dL (70-110)
[2021-01-27] MEDS: Ferrous Sulfate 325 MG Tablet PO ×2 (11:54→17:31)
[2021-01-27] MEDS: Insulin Lispro 100 UNIT/ML INSULN.PEN SC ×3 (11:54→22:23)
[2021-01-27 15:41] LABS: Bedside Glucose 352 mg/dL (70-110)
--- NOTE | 2021-01-27 15:59 | NURSING ---
[address] Sykes, pt became very restless and agigated after therapy had worked with him, he had stood at the side of bed but did not sit in recliner. his pox dropped into the 70's, temp 98.8, very diaphoretic, gown very moist, o2 increased to 5 l nc, pox now is 97%, pt had c/0 pain 8/10, but now denies pain, tylenol was given at 1430, blood glucose is 352. Dr Sykes states this happened 48 and 24 hours ago, also said , you doing the right thing. no orders given at this time.
[2021-01-27] MEDS: oxyCODONE 5 MG Tablet PO (16:11)
--- NOTE | 2021-01-27 16:50 | PCM.PN.BLA ---
Progress Note Patient did spend last evening in the ICU. Has been spiking fevers today. Is much more oriented today on my examination. Reports improved right hip pain. Examination of the right hip shows no excessive erythema. Soft supple compartments. No excessive swelling. Neurovascular intact distally. Dressings are clean and dry. Plan: Continue with postoperative treatment plan as outlined yesterday from orthopedics. We will follow up patient in office in 2 weeks. STROKE Vital Signs/Narrative: Vital Signs Temp Pulse Resp BP Pulse Ox 01/27/21 15:35 98.8 F 102 H 24 H 154/55 H 98
[2021-01-27 17:11] LABS: Bedside Glucose 381 mg/dL (70-110)
[2021-01-27] MEDS: Insulin U-500 UNITS/ML PEN 75 UNITS SC (17:28)
[2021-01-27] MEDS: 0.9% Saline Lock 10 ML Syringe IV (18:35)
[2021-01-27 22:21] LABS: Bedside Glucose 182 mg/dL (70-110)
[2021-01-27] MEDS: Atorvastatin Calcium 80 MG Tablet PO (22:23)
[2021-01-27] MEDS: Doxazosin 4 MG Tablet PO (22:23)
[2021-01-27] MEDS: MELATONIN 3 MG TABLET PO (22:38)
[2021-01-28] VITALS (12 sets, daily range): BP systolic 144–186; BP diastolic 55–73; PULSE 71–102; RESP 20–28; TEMP 36.8–37.5; O2SAT 94–100
[2021-01-28] MEDS: oxyCODONE 5 MG Tablet PO ×2 (05:40→14:00)
[2021-01-28] MEDS: Lactated Ringers 1,000 ML 75 ML IV ×2 (05:41→17:09)
[2021-01-28] MEDS: Acetaminophen 500 MG Tablet 1000 MG PO ×3 (05:41→22:00)
[2021-01-28 07:02] LABS: Hematocrit 26.6 % (40-54); Hemoglobin 8.2 g/dL (13.0-16.5); Mean Corp Hgb Conc 30.8 g/dL (32-36); Mean Corpuscular Hgb 28.7 pg (27.0-32.0); Mean Platelet Vol. 10.7 fl (6.2-12.0); Platelet Count 137 K/mm3 (150-450); RBC Distribution Width CV 14.6 % (11.6-14.6); RBC Distribution Width SD 49.6 fl (35.1-43.9); Red Blood Count 2.86 M/mm3 (4.6-6.2); White Blood Count 8.5 K/mm3 (4.4-11.0)
[2021-01-28 07:20] LABS: Anion Gap 4 (5-15); BUN 30 mg/dL (7-18); Calcium,Total 8.4 mg/dL (8.5-10.1); Chloride 102 mmol/L (98-107); Creatinine, Serum 0.81 mg/dL (0.70-1.30); EST Glomerular Filtration Rate 100 mL/min (>60); Est Glom Filt Rate - Afr Amer 121 mL/min (>60); Estimated Creatinine Clearance 86.37 ml/min; Glucose 185 mg/dL (74-106); Potassium 4.1 mmol/L (3.5-5.1); Sodium Level 137 mmol/L (136-145)
[2021-01-28] MEDS: Insulin Lispro 100 UNIT/ML INSULN.PEN SC ×2 (07:23→11:22)
--- NOTE | 2021-01-28 08:15 | PN_ITS ---
Patient Problems: Active and Suspected Problems (Last Reviewed 01/24/21 @ 16:[address] Luanne Rojas DO) Closed right hip fracture (Acute) LIO (acute kidney injury) (Acute) Reason for Visit: Hip fracture status post ORIF Subjective: Patient was transferred from ICU back to regular nursing floor. Has remained afebrile for almost 24 hours patient seen participating in physical therapy Objective: GENERAL:. Cooperative HEENT: Atraumatic; EYES; Anicteric, Normal Conjunctiva NECK; supple, normal thyroid, RESPIRATORY: Diminished to auscultation CARDIOVASCULAR: Regular S1 S2, GI: soft, normoactive bowel sounds, : No Renal angle tenderness; EXTREMITIES: No edema, no clubbing, MUSCULOSKELETAL: no muscle waisting NEURO: Awake; no lateralizing signs. SKIN: No Rash PSYCH; Flat affect Vitals/I&O's: Vital Signs Temp Pulse Resp BP Pulse Ox 98.2 F 98 20 H 154/68 H 94 01/28/21 02:00 01/28/21 02:00 01/28/21 02:00 01/28/21 02:00 01/28/21 07:24 Oxygen Flow Rate (L/min) 3 Oxygen Delivery Method Nasal Cannula Weight: 134.9 kg Body Mass Index (BMI) 41.6 Finger Stick Blood Glucose 173 Intake and Output for Last 24 Hours 01/26/21 01/27/21 01/28/21 23:59 23:59 23:59 Intake Total 2936.25 / 2936.25 1182.50 / 1182.50 1000 / 1000 Output Total 1200 / 1200 1050 / 1450 850 / 850 Balance 1736.25 / 1736.25 132.50 / -267.50 150 / 150 Microbiology Past 72 Hours 01/26/21 07:20 Blood Culture (Wb) - Left Forearm Blood Culture - Preliminary No growth in 48 hours. 01/26/21 07:24 Blood Culture (Wb) - Left Hand Blood Culture - Preliminary No growth in 48 hours. 01/26/21 08:50 Urine Catheter - Catheter Urine Culture - Preliminary Culture exhibits no growth. Laboratory Results 01/27/21 11:28: POC Glucose 321 H 01/27/21 15:35: POC Glucose 352 H 01/27/21 17:06: POC Glucose 381 H 01/27/21 22:15: POC Glucose 182 H 01/28/21 06:45: WBC 8.5, RBC 2.86 L, Hgb 8.2 L, Hct 26.6 L, MCV 93.0, MCH 28.7, MCHC 30.8 L, RDW Std Deviation 49.6 H, RDW Coeff of Lc 14.6, Plt Count 137 L, MPV 10.7 01/28/21 06:45: Sodium 137, Potassium 4.1, Chloride 102, Carbon Dioxide 31.0, Anion Gap 4 L, BUN 30 H, Creatinine 0.81, Estim Creat Clear Calc 86.37, Est GFR (MDRD) Af Amer 121, Est GFR (MDRD) Non-Af 100, BUN/Creatinine Ratio 37.0 H, Glucose 185 H, Calcium 8.4 L Current Medications Acetaminophen (Acetaminophen 325 Mg Tablet) 650 mg PO Q6H PRN PRN PRN Reason: Pain Score 1-10/Temp > 100.7 F Last Admin: 01/25/21 02:40 Dose: 650 mg Documented by: Acetaminophen (Acetaminophen 500 Mg Tablet) 1,000 mg PO Q8 [facility] Last Admin: 01/28/21 05:41 Dose: 1,000 mg Documented by: Al Hydroxide/Mg Hydroxide (Mag Hydrox/Al Hydrox/Simeth 30 Ml Udc) 30 ml PO Q6H PRN PRN PRN Reason: Gastric Burning Albuterol Sulfate (Albuterol 2.5 Mg/3 Ml Vial.Neb.) 2.5 mg INHALATION Q2H PRN PRN PRN Reason: Shortness of Breath/Wheezing Amlodipine Besylate (Amlodipine 10 Mg Tablet) 10 mg PO DAILY [facility] Last Admin: 01/27/21 09:13 Dose: 10 mg Documented by: Aspirin (Aspirin 325 Mg Tablet) 325 mg PO DAILY@0800 [facility] Last Admin: 01/27/21 09:08 Dose: 325 mg Documented by: Atenolol (Atenolol 25 Mg Tablet) 25 mg PO DAILY [facility] Last Admin: 01/27/21 09:12 Dose: 25 mg Documented by: Atorvastatin Calcium (Atorvastatin Calcium 80 Mg Tablet) 80 mg PO QHS [facility] Last Admin: 01/27/21 22:23 Dose: 80 mg Documented by: Buspirone HCl (Buspirone 5 Mg Tablet) 10 mg PO BID [facility] Last Admin: 01/27/21 22:23 Dose: 10 mg Documented by: Doxazosin Mesylate (Doxazosin 4 Mg Tablet) 4 mg PO QHS [facility] Last Admin: 01/27/21 22:23 Dose: 4 mg Documented by: Ezetimibe (Ezetimibe 10 Mg Tablet) 10 mg PO DAILY [facility] Last Admin: 01/27/21 09:12 Dose: 10 mg Documented by: Enoxaparin Sodium (Enoxaparin 40 Mg/0.4 Ml Syringe) 40 mg SC DAILY [facility] Last Admin: 01/27/21 09:11 Dose: 40 mg Documented by: Ferrous Sulfate (Ferrous Sulfate 325 Mg Tablet) 325 mg PO BID@1200,1700 [facility] Last Admin: 01/27/21 17:31 Dose: 325 mg Documented by: Folic Acid (Folic Acid 1 Mg Tablet) 1 mg PO DAILYCM [facility] Last Admin: 01/27/21 09:11 Dose: 1 mg Documented by: Hydralazine HCl (Hydralazine 20 Mg/Ml Vial) 10 mg IV Q6H PRN PRN PRN Reason: SBP > 160 Last Admin: 01/26/21 16:32 Dose: 10 mg Documented by: Lactated Ringer's () 1,000 mls @ 75 mls/hr IV .[id number] [facility] Last Admin: 01/28/21 05:41 Dose: 75 mls/hr Documented by: Insulin Human Lispro (Insulin Lispro 100 Unit/Ml Insuln.Pen) 0 unit SC ACHS [facility]; Protocol Last Admin: 01/28/21 07:23 Dose: 1 units Documented by: Insulin Human Regular (Insulin U-500 Units/Ml Pen) 75 units SC BIDAC [facility] Last Admin: 01/27/21 17:28 Dose: 75 units Documented by: Melatonin (Melatonin 3 Mg Tablet) 3 mg PO QHS PRN PRN PRN Reason: INSOMNIA Last Admin: 01/27/21 22:38 Dose: 3 mg Documented by: Ondansetron HCl (Ondansetron 4 Mg/2 Ml Vial) 4 mg IV Q8H PRN PRN PRN Reason: NAUSEA/VOMITING Oxycodone HCl (Oxycodone 5 Mg Tablet) 5 mg PO Q4H PRN PRN PRN Reason: Pain Score 4-5 Last Admin: 01/28/21 05:40 Dose: 5 mg Documented by: Pantoprazole Sodium (Pantoprazole Sodium 40 Mg Tablet) 40 mg PO BID [facility] Last Admin: 01/27/21 22:23 Dose: 40 mg Documented by: Polyethylene Glycol (Polyethylene Glycol 3350 17 Gm Packet) 17 gm PO DAILY [facility] Last Admin: 01/27/21 09:13 Dose: 17 gm Documented by: Pregabalin (Pregabalin 50 Mg Capsule) 200 mg PO BID [facility] Last Admin: 01/27/21 22:38 Dose: 200 mg Documented by: Pyridoxine HCl (Pyridoxine Hcl 100 Mg Tablet) 200 mg PO DAILY [facility] Last Admin: 01/27/21 09:12 Dose: 200 mg Documented by: Senna/Docusate Sodium (Senna/Docusate Sodium 1 Tablet) 2 tablet PO BID PRN PRN PRN Reason: Constipation Venlafaxine HCl (Venlafaxine Xr 150 Mg Capsule) 150 mg PO DAILY [facility] Last Admin: 01/27/21 09:11 Dose: 150 mg Documented by: STROKE Vital Signs/Narrative: Vital Signs Pulse Ox 01/28/21 07:24 94 Medical Necessity - Tobacco Use Smoking Status: Former smoker Tobacco Use: Cigarettes, Chew Assessment/Plan All Active Problems (Last Reviewed 01/24/21 @ 16:[address] Luanne Rojas, DO) Closed right hip fracture (Acute) LIO (acute kidney injury) (Acute) Patient is a 70-year-old male presented following a mechanical fall imaging studies demonstrated right nondisplaced intertrochanteric hip fracture 1. Right nondisplaced intertrochanteric hip fracture ?Admitted to a regular nursing floor managed with immobilization pain management with consultation placed to orthopedic surgery Dr. Crane, with plans for patient to undergo surgical intervention on 01/25/2021. Patient perioperative risk assessment performed by admitting physician. -01/26/2021; Patient underwent right hip cephalomedullary nailing on 01/25/[address] Crane. -01/28/2021; patient seen participating in physical therapy. Did discuss with social media assistant to assist with discharge planning possibly to a half-way facility when medically stable and insurance precertification is obtained 2. Acute renal insufficiency ?managed with IV fluids kidney function back to baseline 3. Diabetes mellitus type II -patient's oral hypoglycemics held. Placed on long acting insulin, Accu-Cheks a.c. and at bedtime and covered with sliding scale insulin 4. Anemia - Secondary to chronic disorder monitoring H&H and transfuse if patient becomes symptomatic or hemoglobin falls below 7 5. Hypertension - Blood pressure controlled, home medications continued with dose adjustment as needed 6. Dyslipidemia -Patient is on statin therapy, continued at home dose 7. GERD ?On PPI 8. BPH ?Patient is on prazosin at night 9. Depression with anxiety ?Patient is on Effexor as well as BuSpar 10. Obstructive sleep apnea ?Patient apparently noncompliant with CPAP therapy 11. Morbid obesity - With a BMI of 41 patient was counseled on weight reduction 12. Acute encephalopathy ?Per nursing staff this became more obvious once patient's left. Patient may have underlying cognitive disorder which has been exacerbated by pain as well as pain medications. There appears to be no obvious source of infection to account for his encephalopathy patient had acute renal insufficiency on admission which has since resolved 13. DVT prophylaxis ?Lovenox 14. Low-grade fever ?Patient currently being evaluated with a chest x-ray and urinalysis. Also did encourage the use of incentive spirometry for possible atelectasis -01/27/2021; patient was transferred to the intensive care unit the day prior after he was found with labored breathing as well as persistent fever. Repeat Covid 19 assay came back negative. Urine and blood cultures so far unremarkable. Patient underwent CT of the chest also negative today. Do suspect patient low-grade fever to be secondary to atelectasis incentive spirometry use encouraged. Inpatient E&M: [id number] [facility] Hosp L2
[2021-01-28] MEDS: Folic Acid 1 MG Tablet PO (08:34)
[2021-01-28] MEDS: Insulin U-500 UNITS/ML PEN 75 UNITS SC ×2 (08:34→17:07)
[2021-01-28] MEDS: Aspirin 325 MG Tablet PO (08:34)
[2021-01-28] MEDS: Venlafaxine XR 150 MG Capsule PO (10:36)
[2021-01-28] MEDS: Ezetimibe 10 MG Tablet PO (10:36)
[2021-01-28] MEDS: busPIRone 5 MG Tablet 10 MG PO ×2 (10:36→22:00)
[2021-01-28] MEDS: Ferrous Sulfate 325 MG Tablet PO ×2 (10:37→17:08)
[2021-01-28] MEDS: Pregabalin 50 MG Capsule 200 MG PO ×2 (10:37→22:00)
[2021-01-28] MEDS: amLODIPine 10 MG Tablet PO (10:37)
[2021-01-28] MEDS: Enoxaparin 40 MG/0.4 ML Syringe SC (10:37)
[2021-01-28] MEDS: Pantoprazole Sodium 40 MG Tablet PO ×2 (10:37→22:00)
[2021-01-28] MEDS: Polyethylene Glycol 3350 17 GM PACKET PO (10:37)
[2021-01-28] MEDS: Pyridoxine HCl 100 MG Tablet 200 MG PO (10:37)
[2021-01-28] MEDS: Atenolol 25 MG Tablet PO (10:37)
[2021-01-28 11:50] LABS: Bedside Glucose 220 mg/dL (70-110)
--- NOTE | 2021-01-28 14:52 | CASEMGMT ---
Social Work SW updated pt and that precert has not yet been obtained. Once [place] notifies SW that precert has been granted, pt and will be notified. JORDI Umana
--- NOTE | 2021-01-28 16:30 | CASEMGMT ---
Social Work Note LAITH received message from Ale at [facility] stating pre-cert has been obtained, pre-cert is good through the weekend. Ale states pt will need RAPID COVID test on the day of discharge. LAITH updated physician, pt not medically ready for discharge today, likely tomorrow. LAITH placed a call to Ale and updated her on no discharge today, likely tomorrow. LAITH in to speak with pt. LAITH updated pt that pt was approved for [facility] and physician is thinking discharge tomorrow. Pt states understanding. Pt gave this worker permission to call his Maria De Jesus to update her. LAITH placed a call to pt's Maria De Jesus and updated her on approval to [facility] and likely discharge tomorrow. Maria De Jesus states understanding, denied additional needs or concerns at this time. LAITH completed convalescent 7000 in HENS. LAITH placed green sheet, transport form, COVID screening tool and [facility]ENS on pt's chart. LAITH updated Charge Nurse that pt will need Rapid COVID test completed on day of discharge. Plan: [facility] when medically cleared. Pre-cert is good through the weekend. Pt will need Rapid COVID test completed on day of discharge. Adwoa Chamberlain ATHLETIC INSTRUCTOR, HEALTH SANITARIAN
[2021-01-28 17:05] LABS: Bedside Glucose 177 mg/dL (70-110)
[2021-01-28 17:31] LABS: Bedside Glucose 135 mg/dL (70-110)
[2021-01-28] MEDS: hydrALAZINE 20 MG/ML Vial 10 MG IV (20:21)
[2021-01-28] MEDS: Albuterol 2.5 MG/3 ML VIAL.NEB. INHALATION (20:26)
--- NOTE | 2021-01-28 21:30 | RAD_ITS ---
INDICATION: SOB EXAMINATION/TECHNIQUE: X-RAY - XR Chest 1 View COMPARISON: 01/26/2021. FINDINGS: Increased diffuse bilateral interstitial opacities. Tortuous and calcified thoracic aorta. The heart is enlarged. Trace bilateral pleural effusions. Degenerative changes of the thoracic spine. RAD/Chest 1 View (Portable) IMPRESSION: Cardiomegaly with pulmonary edema and trace bilateral pleural effusions. Electronically Signed: Pravin Alexander MD at 21:44 EST Tel , Service support ,
[2021-01-28] MEDS: Doxazosin 4 MG Tablet PO (22:00)
[2021-01-28] MEDS: Atorvastatin Calcium 80 MG Tablet PO (22:00)
[2021-01-28 22:40] LABS: Bedside Glucose 135 mg/dL (70-110)
[2021-01-28 22:40] LABS: Bedside Glucose 66 mg/dL (70-110)
--- NOTE | 2021-01-28 23:28 | NURSING ---
2145. pt c/o feeling sweaty blood sugar checked and was 66. pt given peanut butter and apple juice. blood sugar rechecked at 2215 and was 135. pt denies symptoms at this time
[2021-01-29] VITALS (12 sets, daily range): BP systolic 133–153; BP diastolic 54–67; PULSE 82–100; RESP 12–28; TEMP 37–37.6; O2SAT 93–98
[2021-01-29] MEDS: Furosemide 40 MG/4 ML Vial IV ×2 (02:35→05:54)
[2021-01-29] MEDS: 0.9% Saline Lock 10 ML Syringe IV (02:35)
[2021-01-29 02:46] LABS: Bedside Glucose 141 mg/dL (70-110)
[2021-01-29] MEDS: Senna/Docusate Sodium 1 Tablet 2 TABLET PO (02:48)
[2021-01-29] MEDS: Acetaminophen 325 MG Tablet 650 MG PO (02:49)
[2021-01-29] MEDS: Ipratropium/Albuterol Sulfate 3 ML AMPUL.NEB INHALATION ×2 (05:34→10:28)
[2021-01-29] MEDS: Acetaminophen 500 MG Tablet 1000 MG PO (05:55)
[2021-01-29] MEDS: Albuterol 2.5 MG/3 ML VIAL.NEB. INHALATION (05:58)
[2021-01-29] MEDS: Insulin Lispro 100 UNIT/ML INSULN.PEN SC ×2 (06:27→11:27)
[2021-01-29] MEDS: oxyCODONE 5 MG Tablet PO (06:30)
[2021-01-29 06:45] LABS: Bedside Glucose 195 mg/dL (70-110)
--- NOTE | 2021-01-29 07:48 | PCM.TXEXTCAR ---
- Diet 01/26/21 12:59 Diet: Cardiac: Calorie-Controlled Food consistency:: Easy to Chew Liquid Consistency:: Regular/Thin Type of Dietary Supplement:: Glucerna Shake Is pt able to select menu?: Yes Diet Comments: 120 ml glucerna shake BID w/ break and dinner How many daily calories?: 1999 calorie - Routine Orders/Code Status Code Status: Full Code - Wound(s) RIGHT LOWER EXT Wound Type: SCABS IN VARIOUS DEGREES OF HEALING right knee Wound Type: Abrasion left forearm Wound Type: Abrasion rt hip Wound Type: Surgical Incision - Therapies Weight Bearing: Weight bearing as tolerated Physical Therapy: Eval and Treat Occupational Therapy: Eval and Treat - Allergies/Procedures Done in Hospital Allergies/Adverse Reactions: Allergies No Known Allergies Allergy (Unverified 01/24/21 11:49) Procedures: None - Type of Care/Length of Stay Estimated LOS: Convalescent Care Less Than 30 days Type of Care Needed: Skilled Rehab Potential: Good Prognosis: Good - Additional Orders/Day of Discharge H&P will serve as current which was dated: 01/29/21 Day of Discharge: 01/29/21 - Dietary and Speech Recommendations Dietitian Recommendations/Changes: Continue 120ml glucerna shake BID. Continue 1999 calorie/CHO Control/Cardiac - easy to chew. - Follow Up Care Primary Care Physician: Clayton Petty MD [Primary Care Provider] - Please follow up with your Primary Care Physician in: in 1-2 weeks
[2021-01-29 08:06] LABS: Hematocrit 26.2 % (40-54); Mean Corp Hgb Conc 30.5 g/dL (32-36); Mean Corpuscular Hgb 28.3 pg (27.0-32.0); Mean Corpuscular Volume 92.6 fL (80-94); Mean Platelet Vol. 10.6 fl (6.2-12.0); Platelet Count 145 K/mm3 (150-450); RBC Distribution Width SD 50.3 fl (35.1-43.9); Red Blood Count 2.83 M/mm3 (4.6-6.2)
[2021-01-29 08:35] LABS: Anion Gap 7 (5-15); BUN 28 mg/dL (7-18); BUN/Creat Ratio 32.1 RATIO (10-20); Calcium,Total 8.3 mg/dL (8.5-10.1); Chloride 101 mmol/L (98-107); Creatinine, Serum 0.87 mg/dL (0.70-1.30); EST Glomerular Filtration Rate 91 mL/min (>60); Est Glom Filt Rate - Afr Amer 111 mL/min (>60); Estimated Creatinine Clearance 80.41 ml/min; Glucose 219 mg/dL (74-106); Magnesium 1.7 mg/dL (1.6-2.6); Potassium 3.6 mmol/L (3.5-5.1); Sodium Level 138 mmol/L (136-145)
[2021-01-29] MEDS: Aspirin 325 MG Tablet PO (08:49)
[2021-01-29] MEDS: Folic Acid 1 MG Tablet PO (08:49)
[2021-01-29] MEDS: Insulin U-500 UNITS/ML PEN 75 UNITS SC (08:57)
--- NOTE | 2021-01-29 09:56 | PCM.DC.SUM ---
Discharge Date and Diagnosis - Problem List Patient Problems: Active and Suspected Problems (Last Reviewed 01/24/21 @ 16:[address] Luanne Rojas DO) Closed right hip fracture (Acute) LIO (acute kidney injury) (Acute) Date of Admission: 01/24/21 Date of Discharge: 01/29/21 - Primary Discharge Diagnosis Acute Problems: Active Problems (Last Reviewed 01/24/21 @ 16:[address] Luanne Rojas DO) Closed right hip fracture (Acute) LIO (acute kidney injury) (Acute) - Secondary Discharge Diagnosis Chronic Problems: Chronic Problems (Last Reviewed 01/24/21 @ 16:[address] Luanne Rojas DO) Chronic venous insufficiency (Chronic) Venous hypertension, chronic, with ulcer and inflammation (Chronic) Leg swelling (Chronic) Leg edema (Chronic) Venous stasis dermatitis (Chronic) Venous ulcer of right leg (Chronic) Obesity (BMI 30-39.9) (Chronic) Hypertension (Chronic) Diabetes mellitus (Chronic) Hyperlipidemia (Chronic) Ulcer of right lower extremity with fat layer exposed (Chronic) Diabetic neuropathy (Chronic) Uncontrolled diabetes mellitus type 2 without complications (Chronic) On lilia inhibitor On daily asa On statin BP 133/76 A1c checked on PCP office, no results available. No records avialable. Hospital Course and Treatment Imaging Results: Clinical Impression(s) from Imaging Studies Chest X-Ray 01/24/21 11:22 IMPRESSION: Small left pleural effusion. Electronically Signed: Edil Painter MD at 13:48 EST Tel , Service support , Hip/Pelvis X-Ray 01/24/21 11:22 IMPRESSION: Acute nondisplaced oblique fracture of the intertrochanteric right femur. Electronically Signed: Edil Painter MD at 13:49 EST Tel , Service support , Femur X-Ray 01/25/21 13:30 IMPRESSION: Fluoroscopic guidance for ORIF surgery of the right proximal femur as described. For details please see operative report. Electronically Signed: Meaghan Diane MD at 0:55 EST , Service support , Hip X-Ray 01/25/21 15:35 IMPRESSION: Satisfactory postoperative changes. Electronically Signed: Bahman Fang MD at 16:55 EST Tel , Service support , Chest X-Ray 01/26/21 06:41 IMPRESSION: No active disease. Cardiomegaly. Electronically Signed: Edil Painter MD at 8:19 EST Tel , Service support , Chest CTA 01/27/21 07:19 IMPRESSION: Normal CTA chest examination, without a demonstrated pulmonary embolism or arterial dissection. Electronically Signed: Edil Painter MD at 8:52 EST Tel , Service support , Consultations 01/24/21 14:43 Consult: Onc/Wound/monomer recovery operator Routine Comment: Bilateral lower extremity wounds Summary of Care Provided: Patient is a 70-year-old male presented following a mechanical fall imaging studies demonstrated right nondisplaced intertrochanteric hip fracture 1. Right nondisplaced intertrochanteric hip fracture ?Admitted to a regular nursing floor managed with immobilization pain management with consultation placed to orthopedic surgery Dr. Crane, with plans for patient to undergo surgical intervention on 01/25/2021. Patient perioperative risk assessment performed by admitting physician. -01/26/2021; Patient underwent right hip cephalomedullary nailing on 01/25/[address] Crane. -01/28/2021; patient seen participating in physical therapy. Did discuss with psychologist social to assist with discharge planning possibly to a care home facility when medically stable and insurance precertification is obtained -01/29/2021. Patient condition had stabilized decision was made to discharge patient to care home facility with insurance precertification having been obtained. 2. Acute renal insufficiency ?managed with IV fluids kidney function back to baseline 3. Diabetes mellitus type II -patient's oral hypoglycemics held. Placed on long acting insulin, Accu-Cheks a.c. and at bedtime and covered with sliding scale insulin 4. Anemia - Secondary to chronic disorder monitoring H&H and transfuse if patient becomes symptomatic or hemoglobin falls below 7 5. Hypertension - Blood pressure controlled, home medications continued with dose adjustment as needed 6. Dyslipidemia -Patient is on statin therapy, continued at home dose 7. GERD ?On PPI 8. BPH ?Patient is on prazosin at night 9. Depression with anxiety ?Patient is on Effexor as well as BuSpar 10. Obstructive sleep apnea ?Patient apparently noncompliant with CPAP therapy 11. Morbid obesity - With a BMI of 41 patient was counseled on weight reduction 12. Acute encephalopathy ?Per nursing staff this became more obvious once patient's left. Patient may have underlying cognitive disorder which has been exacerbated by pain as well as pain medications. There appears to be no obvious source of infection to account for his encephalopathy patient had acute renal insufficiency on admission which has since resolved 13. DVT prophylaxis ?Lovenox 14. Low-grade fever ?Patient currently being evaluated with a chest x-ray and urinalysis. Also did encourage the use of incentive spirometry for possible atelectasis -01/27/2021; patient was transferred to the intensive care unit the day prior after he was found with labored breathing as well as persistent fever. Repeat Covid 19 assay came back negative. Urine and blood cultures so far unremarkable. Patient underwent CT of the chest also negative today. Do suspect patient low-grade fever to be secondary to atelectasis incentive spirometry use encouraged. Patient Problems: Active and Suspected Problems (Last Reviewed 01/24/21 @ 16:[address] Luanne Rojas, DO) Closed right hip fracture (Acute) LIO (acute kidney injury) (Acute) Objective: GENERAL:. Cooperative HEENT: Atraumatic; EYES; Anicteric, Normal Conjunctiva NECK; supple, normal thyroid, RESPIRATORY: Diminished to auscultation CARDIOVASCULAR: Regular S1 S2, GI: soft, normoactive bowel sounds, : No Renal angle tenderness; EXTREMITIES: No edema, no clubbing, MUSCULOSKELETAL: no muscle waisting NEURO: Awake; no lateralizing signs. SKIN: No Rash PSYCH; Flat affect - Physical Exam Vitals/I&O's: Vital Signs Temp Pulse Resp BP Pulse Ox 98.6 F 87 18 133/67 H 97 01/29/21 08:19 01/29/21 08:19 01/29/21 08:26 01/29/21 08:19 01/29/21 08:26 Oxygen Flow Rate (L/min) 3 Oxygen Delivery Method Nasal Cannula Weight: 135.2 kg Body Mass Index (BMI) 41.6 Finger Stick Blood Glucose 173 Intake and Output for Last 24 Hours 01/27/21 01/28/21 01/29/21 23:59 23:59 23:59 Intake Total 1182.50 / 1182.50 3000 / 3000 998.75 / 998.75 Output Total 1050 / 1450 1725 / 1725 950 / 950 Balance 132.50 / -267.50 1275 / 1275 48.75 / 48.75 Microbiology Past 72 Hours 01/26/21 08:50 Urine Catheter - Catheter Urine Culture - Final Culture exhibits no growth. 01/26/21 07:20 Blood Culture (Wb) - Left Forearm Blood Culture - Preliminary No growth in 48 hours. 01/26/21 07:24 Blood Culture (Wb) - Left Hand Blood Culture - Preliminary No growth in 48 hours. Laboratory Results 01/28/21 07:22: POC Glucose 177 H 01/28/21 11:20: POC Glucose 220 H 01/28/21 17:03: POC Glucose 135 H 01/28/21 21:46: POC Glucose 66 L 01/28/21 22:16: POC Glucose 135 H 01/29/21 02:41: POC Glucose 141 H 01/29/21 06:26: POC Glucose 195 H 01/29/21 07:46: WBC 7.0, RBC 2.83 L, Hgb 8.0 L, Hct 26.2 L, MCV 92.6, MCH 28.3, MCHC 30.5 L, RDW Std Deviation 50.3 H, RDW Coeff of Lc 15.0 H, Plt Count 145 L, MPV 10.6 01/29/21 07:46: Sodium 138, Potassium 3.6, Chloride 101, Carbon Dioxide 30.0, Anion Gap 7, BUN 28 H, Creatinine 0.87, Estim Creat Clear Calc 80.41, Est GFR (MDRD) Af Amer 111, Est GFR (MDRD) Non-Af 91, BUN/Creatinine Ratio 32.1 H, Glucose 219 H, Calcium 8.3 L, Magnesium 1.7 Current Medications Acetaminophen (Acetaminophen 325 Mg Tablet) 650 mg PO Q6H PRN PRN PRN Reason: Pain Score 1-10/Temp > 100.7 F Last Admin: 01/29/21 02:49 Dose: 650 mg Documented by: Acetaminophen (Acetaminophen 500 Mg Tablet) 1,000 mg PO Q8 [facility] Last Admin: 01/29/21 05:55 Dose: 1,000 mg Documented by: Al Hydroxide/Mg Hydroxide (Mag Hydrox/Al Hydrox/Simeth 30 Ml Udc) 30 ml PO Q6H PRN PRN PRN Reason: Gastric Burning Albuterol Sulfate (Albuterol 2.5 Mg/3 Ml Vial.Neb.) 2.5 mg INHALATION Q2H PRN PRN PRN Reason: Shortness of Breath/Wheezing Last Admin: 01/29/21 05:58 Dose: 2.5 mg Documented by: Albuterol/Ipratropium (Ipratropium/Albuterol Sulfate 3 Ml Ampul.Neb) 3 ml INHALATION Q4HWA.RT [facility] Last Admin: 01/29/21 05:34 Dose: 3 ml Documented by: Amlodipine Besylate (Amlodipine 10 Mg Tablet) 10 mg PO DAILY [facility] Last Admin: 01/28/21 10:37 Dose: 10 mg Documented by: Aspirin (Aspirin 325 Mg Tablet) 325 mg PO DAILY@0800 [facility] Last Admin: 01/29/21 08:49 Dose: 325 mg Documented by: Atenolol (Atenolol 25 Mg Tablet) 25 mg PO DAILY [facility] Last Admin: 01/28/21 10:37 Dose: 25 mg Documented by: Atorvastatin Calcium (Atorvastatin Calcium 80 Mg Tablet) 80 mg PO QHS [facility] Last Admin: 01/28/21 22:00 Dose: 80 mg Documented by: Buspirone HCl (Buspirone 5 Mg Tablet) 10 mg PO BID [facility] Last Admin: 01/28/21 22:00 Dose: 10 mg Documented by: Doxazosin Mesylate (Doxazosin 4 Mg Tablet) 4 mg PO QHS [facility] Last Admin: 01/28/21 22:00 Dose: 4 mg Documented by: Ezetimibe (Ezetimibe 10 Mg Tablet) 10 mg PO DAILY [facility] Last Admin: 01/28/21 10:36 Dose: 10 mg Documented by: Enoxaparin Sodium (Enoxaparin 40 Mg/0.4 Ml Syringe) 40 mg SC DAILY [facility] Last Admin: 01/28/21 10:37 Dose: 40 mg Documented by: Ferrous Sulfate (Ferrous Sulfate 325 Mg Tablet) 325 mg PO BID@1200,1700 [facility] Last Admin: 01/28/21 17:08 Dose: 325 mg Documented by: Folic Acid ([facility] 1 Mg [facility]t) [facility] Last Admin: 01/29/21 08:49 Dose: 1 mg Documented by: Hydralazine HCl (Hydralazine 20 Mg/Ml Vial) 10 mg IV Q6H PRN PRN PRN Reason: SBP > 160 Last Admin: 01/28/21 20:21 Dose: 10 mg Documented by: Insulin Human Lispro (Insulin Lispro 100 Unit/Ml Insuln.Pen) 0 unit SC [facility]; Protocol Last Admin: 01/29/21 06:27 Dose: 2 units Documented by: Insulin Human Regular (Insulin U-500 Units/Ml Pen) 75 units SC BIDAC [facility] Last Admin: 01/29/21 08:57 Dose: 75 units Documented by: Melatonin (Melatonin 3 Mg Tablet) 3 mg PO QHS PRN PRN PRN Reason: INSOMNIA Last Admin: 01/27/21 22:38 Dose: 3 mg Documented by: Ondansetron HCl (Ondansetron 4 Mg/2 Ml Vial) 4 mg IV Q8H PRN PRN PRN Reason: NAUSEA/VOMITING Oxycodone HCl (Oxycodone 5 Mg Tablet) 5 mg PO Q4H PRN PRN PRN Reason: Pain Score 4-5 Last Admin: 01/29/21 06:30 Dose: 5 mg Documented by: Pantoprazole Sodium (Pantoprazole Sodium 40 Mg Tablet) 40 mg PO BID [facility] Last Admin: 01/28/21 22:00 Dose: 40 mg Documented by: Polyethylene Glycol (Polyethylene Glycol 3350 17 Gm Packet) 17 gm PO DAILY [facility] Last Admin: 01/28/21 10:37 Dose: 17 gm Documented by: Pregabalin (Pregabalin 50 Mg Capsule) 200 mg PO BID [facility] Last Admin: 01/28/21 22:00 Dose: 200 mg Documented by: Pyridoxine HCl (Pyridoxine Hcl 100 Mg Tablet) 200 mg PO DAILY [facility] Last Admin: 01/28/21 10:37 Dose: 200 mg Documented by: Senna/Docusate Sodium (Senna/Docusate Sodium 1 Tablet) 2 tablet PO BID PRN PRN PRN Reason: Constipation Last Admin: 01/29/21 02:48 Dose: 2 tablet Documented by: Venlafaxine HCl (Venlafaxine Xr 150 Mg Capsule) 150 mg PO DAILY [facility] Last Admin: 01/28/21 10:36 Dose: 150 mg Documented by: Discharge Diet: 1800 Calorie Control Diet Discharge Activity: Return to Normal Activity Home Medications: Medications to take at Discharge atorvastatin 80 mg tablet 80 mg PO QHS 07/02/18 ferrous sulfate 325 mg (65 mg iron) tablet 325 mg PO BID tab 07/02/18 lisinopril 20 mg-hydrochlorothiazide 12.5 mg tablet 2 tab PO DAILY tab 07/02/18 metformin 500 mg tablet 1,000 mg PO BID tab 07/02/18 prazosin 5 mg capsule 5 mg PO QHS 07/02/18 Atenolol 25 mg PO DAILY 05/13/19 Cyanocobalamin (Vitamin B-12) [Vitamin B-12] 1,000 mcg PO DAILY 05/13/19 Melatonin 6 mg PO QHS 05/13/19 Omeprazole 40 mg PO BID 05/13/19 Venlafaxine HCl [Venlafaxine HCl ER] 150 mg PO DAILY 05/13/19 Amlodipine Besylate 10 mg PO DAILY 01/24/21 Ascorbic Acid [Vitamin C] 250 mg PO BID 01/24/21 Aspirin 162.5 mg PO DAILY@0800 01/24/21 Cholecalciferol (VIT D3) [Vitamin D3] 2,000 unit PO DAILY 01/24/21 Ezetimibe [Zetia] 10 mg PO DAILY 01/24/21 Folic Acid 1 mg PO DAILY 01/24/21 Magnesium 250 mg PO DAILY 01/24/21 Multivit-Min/FA/Lycopen/Lutein [Centrum Silver Tablet] 1 ea PO DAILY 01/24/21 [place]-3 Fatty Acids/Fish Oil [Fish Oil 1,000 mg Capsule] 2 ea PO TID 01/24/21 Pregabalin 200 mg PO BID 01/24/21 Pyridoxine HCl [Vitamin B-6] 200 mg PO DAILY 01/24/21 Triamcinolone Acetonide 1 applic TP BID 01/24/21 busPIRone [Buspar] 10 mg PO BID 01/24/21 Acetaminophen [Tylenol Tablet] 650 mg PO Q6H PRN PRN tab 01/29/21 Albuterol Aerosols [Ventolin Aerosols] 2.5 mg INHALATION Q2H PRN PRN vial.neb. 01/29/21 Enoxaparin [Lovenox] 40 mg SC DAILY #30 days 01/29/21 Insulin Lispro [Humalog KwikPen] See Protocol SC ACHS insuln.pen 01/29/21 Insulin U-500 *Concentrated* [Humulin R U-500 *Concentrated Insulin*] 75 units SC BIDAC pen 01/29/21 Ipratropium/Albuterol Sulfate [Duoneb] 3 ml INHALATION Q4HWA.RT ampul.neb 01/29/21 Mag Hydrox/Al Hydrox/Simeth [Mylanta II] 30 ml PO Q6H PRN PRN udc 01/29/21 Oxycodone [Oxyir] 5 mg PO Q4H PRN PRN 3 Days #12 tab 01/29/21 Polyethylene Glycol 3350 [Miralax] 17 gm PO DAILY packet 01/29/21 Senna/Docusate Sodium [Senokot-S] 2 tab PO BID PRN PRN tab 01/29/21 Following Prescriptions Were Given to Patient: Enoxaparin [Lovenox] 40 mg SC DAILY #30 days Prescription Printed Oxycodone [Oxyir] 5 mg PO Q4H PRN PRN 3 Days #12 tab PRN Reason: Pain Score 4-10 Prescription Printed Primary Care Physician: Clayton Petty MD [Primary Care Provider] - Please follow up with your Primary Care Physician in: in 1-2 weeks Disposition: Retirement facility Minutes spent on discharge:: 35 Patient Condition:: Stable Medical Necessity - Tobacco Use Smoking Status: Former smoker Tobacco Use: Cigarettes, Chew Meaningful Use Info Meaningful Use Diagnoses (Choose all that apply): None applicable Inpatient E&M: 88368 Disch Hosp
--- NOTE | 2021-01-29 10:19 | CM.UR ---
Confirmed with patient that he is seen at [facility]. Faxed clinical to [facility] for continuity of care and to the [place] bed control/transfer center for payment purposes. Plan is dc to [facility] today. Nancy Mitchell RN, [facility].
[2021-01-29] MEDS: busPIRone 5 MG Tablet 10 MG PO (11:06)
[2021-01-29] MEDS: Venlafaxine XR 150 MG Capsule PO (11:07)
[2021-01-29] MEDS: Enoxaparin 40 MG/0.4 ML Syringe SC (11:07)
[2021-01-29] MEDS: amLODIPine 10 MG Tablet PO (11:08)
[2021-01-29] MEDS: Pantoprazole Sodium 40 MG Tablet PO (11:09)
[2021-01-29] MEDS: Atenolol 25 MG Tablet PO (11:10)
[2021-01-29] MEDS: Ezetimibe 10 MG Tablet PO (11:11)
[2021-01-29] MEDS: Pyridoxine HCl 100 MG Tablet 200 MG PO (11:11)
[2021-01-29] MEDS: Pregabalin 50 MG Capsule 200 MG PO (11:22)
[2021-01-29] MEDS: Ferrous Sulfate 325 MG Tablet PO (11:23)
[2021-01-29 12:06] LABS: Bedside Glucose 315 mg/dL (70-110)
== END 2021-01-29 14:30 | disposition skilled nursing facility (03) | DRG 480 ==
LOC: ED 12:08 → MS3 13:35 → ICU 01-26 17:18 → MS3 01-27 10:45
PROVIDERS: Internal Medicine; Specialist; Admitting Provider Internal Medicine; Emergency Provider Emergency Medicine; PCP Family Medicine; Visit Provider Internal Medicine
PROC: 0QS604Z Reposition Right Upper Femur with Internal Fixation Device, Open Approach (ICD-10-PCS; CPT 27245; principal; 2021-01-25 13:00)
DX: S72.144A Nondisplaced intertrochanteric fracture of right femur, initial encounter for closed fracture (principal); G92 Toxic encephalopathy; Z68.41 Body mass index [BMI] 40.0-44.9, adult; J90 Pleural effusion, not elsewhere classified; J98.11 Atelectasis; I87.331 Chronic venous hypertension (idiopathic) with ulcer and inflammation of right lower extremity; L97.912 Non-pressure chronic ulcer of unspecified part of right lower leg with fat layer exposed; T50.905A Adverse effect of unspecified drugs, medicaments and biological substances, initial encounter; W18.30XA Fall on same level, unspecified, initial encounter; Y93.9 Activity, unspecified; Y92.9 Unspecified place or not applicable; N28.9 Disorder of kidney and ureter, unspecified; N40.0 Benign prostatic hyperplasia without lower urinary tract symptoms; K21.9 Gastro-esophageal reflux disease without esophagitis; J44.9 Chronic obstructive pulmonary disease, unspecified; G47.33 Obstructive sleep apnea (adult) (pediatric); E11.40 Type 2 diabetes mellitus with diabetic neuropathy, unspecified; E66.01 Morbid (severe) obesity due to excess calories; E78.00 Pure hypercholesterolemia, unspecified; E78.5 Hyperlipidemia, unspecified; E55.9 Vitamin D deficiency, unspecified; F41.8 Other specified anxiety disorders; I10 Essential (primary) hypertension; D63.8 Anemia in other chronic diseases classified elsewhere; R50.9 Fever, unspecified; M19.90 Unspecified osteoarthritis, unspecified site; G25.81 Restless legs syndrome; Z79.82 Long term (current) use of aspirin; Z79.899 Other long term (current) drug therapy; Z91.19 Patient's noncompliance with other medical treatment and regimen; Z87.440 Personal history of urinary (tract) infections; Z87.01 Personal history of pneumonia (recurrent); Z79.4 Long term (current) use of insulin
CPT/HCPCS: 36415; 36600; 71045; 71275; 73502; 73552; 76000; 80048; 80053; 81001; 82306; 82803; 82962; 83036; 83605; 83735; 84100; 85025; 85027; 85610; 86850; 86900; 86901; 87040; 87086; 87426; 87635; 93005; 93306; 93970; 94002; 94640; 97110; 97162; 97166; 97530; 97535; 97802; 99285; C1713; J7030; J7120; Q9957; Q9967; A4216; C8929; J1940; J2405; U0002